=== PATIENT | male | born 1975 | race Caucasian/White ===

== ENCOUNTER 2018-01-21 12:49 | Inpatient (IN) | payer OTHER ==
[2018-01-21 13:35] VITALS: BMI 29.9
--- NOTE | 2018-01-21 14:42 | HP ---
CIWA Score - CIWA Score Nausea/Vomitin-Int. Nausea w/Dry Heave Muscle Tremors: None Anxiety: 2 Agitation: 0-Normal Activity Paroxysmal Sweats: 1-Minimal Palms Moist Orientation: 0-Oriented Tacttile Disturbances: 0-None Auditory Disturbances: 0-None Visual Disturbances: 1-Very Mild Sensitivity Headache: 0-None Present CIWA-Ar Total Score: 8 Admission ROS S - HPI Allergies/Adverse Reactions: Allergies Allergy/AdvReac Type Severity Reaction Status Date / Time No Known Allergies Allergy Verified 01/21/18 13:55 History of Present Illness: patient here requesting detox from etoh use , 4-5 pints/day vodka , reports progressively increase x 15 years , first age of use 6 , + w/d seizure most recently 2 days ago , + blackouts , + falls denies recent injuries . Reports starts drinking from early in the morning . prior detox x 8-9 , most recently 2 mo ago at this facility denies illicits tobacco : 4-5 cigs/day pmhx : htn, asthma ( hospitalzied, intobated - most recently 1 yr ago ) . right leg Achilles tendon tear , wearing CAM boot pshx : denies psych : depression , anxiety , bipolar d/o meds : depakote , gabapentin , celexa , abilify , ambien , naproxen Exam Limitations: Physical Impairment - Ebola screening Have you traveled outside of the country in the last 21 days: No Have you had contact with anyone from an Ebola affected area: No Have you been sick,other than usual withdrawal symptoms: No Do you have a fever: No - Review of Systems Constitutional: See HPI EENT: reports: See HPI Respiratory: reports: No Symptoms reported Cardiac: reports: No Symptoms Reported GI: reports: No Symptoms Reported : reports: No Symptoms Reported Musculoskeletal: reports: Other (right achilles tendon tear ,wears cam boot) Integumentary: reports: No Symptoms Reported Neuro: reports: No Symptoms reported, Other (r LE CAM) Psychiatric: reports: Orientated x3, other (see HPI) Patient History - Patient Medical History Hx Anemia: No Hx Asthma: Yes (PUMP) Hx Chronic Obstructive Pulmonary Disease (COPD): No Hx Cancer: No Hx Cardiac Disorders: Yes (cardiac arrest 6yrs ago) Hx Congestive Heart Failure: No Hx Hypertension: Yes (ON MEDS) Hx Hypercholesterolemia: No Hx Pacemaker: No HX Cerebrovascular Accident: No Hx Seizures: Yes (LAST SEIZURE 2 DAYS AGO) Hx Dementia: No Hx Diabetes: No Hx Gastrointestinal Disorders: No Hx Liver Disease: No Hx Genitourinary Disorders: No Hx Sexually Transmitted Disorders: Yes (gonorrhea) Hx Renal Disease (ESRD): No Hx Thyroid Disease: No Hx Human Immunodeficiency Virus (HIV): No (negative last tested a week ago ) Hx Hepatitis C: No Hx Depression: Yes Hx Suicide Attempt: No Hx Bipolar Disorder: Yes (abilifno, depkerente) Hx Schizophrenia: No - Patient Surgical History Past Surgical History: No Hx Neurologic Surgery: No Hx Cataract Extraction: No Hx Cardiac Surgery: No Hx Lung Surgery: No Hx Breast Surgery: No Hx Breast Biopsy: No Hx Abdominal Surgery: No Hx Appendectomy: No Hx Cholecystectomy: No Hx Genitourinary Surgery: No Hx Section: No Hx Orthopedic Surgery: Yes (lower back sx (fall)-lumber spine surgery 3yrs ago) Anesthesia Reaction: No - PPD History Documented Results: Positive w/o proof - Smoking Cessation Smoking history: Current some day smoker Have you smoked in the past 12 months: Yes Aproximately how many cigarettes per day: 5 Cigars Per Day: 0 Hx Chewing Tobacco Use: No Initiated information on smoking cessation: No - Substances Abused Alcohol Route: Oral Frequency: Daily Amount used: 4-5 PINTS OF VODKA Age of first use: 6 Date of Last Use: 01/20/18 Family Disease History - Family Disease History Family Disease History: [place]: Mother (BREAST CANCER), Other: Grandparent (uncle prostate ca) Admission Physical Exam S - Vital Signs Vital Signs: Vital Signs - 24 hr 01/21/18 13:33 Temperature 97.5 F L Pulse Rate 89 Respiratory 18 Rate Blood Pressure 129/70 - Physical General Appearance: Yes: No Apparent Distress, Nourished, Appropriately Dressed , Mild Distress HEENTM: Yes: EOMI, Hearing grossly Normal, Normocephalic, Normal Voice, SYLVAIN, Pharynx Normal, Other (upper dentures left eye chalazion outer lower lid- agreeable to f/up w/ PCP after d/c) Respiratory: Yes: Within Normal Limits, Chest Non-Tender, Lungs Clear, Normal Breath Sounds, No Respiratory Distress, No Accessory Muscle Use Neck: Yes: Within Normal Limits, No masses,lesions,Nodules, Trachea in good position Breast: Yes: Breast Exam Deferred Cardiology: Yes: Within Normal Limits, Regular Rhythm, Regular Rate Abdominal: Yes: Within Normal Limits, Normal Bowel Sounds, Non Tender, Flat, Soft Genitourinary: Yes: Within Normal Limits Back: Yes: Within Normal Limits, Normal Inspection Musculoskeletal: Yes: full range of Motion, Pelvis Stable, Joint Stiffness, Other (r LE CAM) Extremities: Yes: Normal Capillary Refill, Normal Inspection, Normal Range of Motion, Non-Tender, Tremors, Swelling, Inflammation, Other (right Achilles tear , + edema , reports has appt w/ ortho at [facility], planning surgery , had fall down subway stairs in October of this year, denies intoxication at the time of the fall.) Neurological: Yes: Fully Oriented, Alert, Motor Strength 5/5, Normal Mood/Affect , Normal Response, Depressed Affect Integumentary: Yes: Erythema, Other (right heel edema, slight erythema) Lymphatic: Yes: Within Normal Limits - Diagnostic (1) Alcohol dependence with withdrawal, uncomplicated Current Visit: No Status: Acute BHS Breath Alcohol Content Breath Alcohol Content: 0 Urine Drug Screen - Results Drug Screen Negative: Yes
[2018-01-21] MEDS ORDERED: LOPERAMIDE HCL 2 MG CAPSULE PO PRN (14:49)
[2018-01-21] MEDS ORDERED: MAGNESIUM HYDROX 2400MG/30ML ORAL SUSPENSION 30 ML CUP PO PRN (14:49)
[2018-01-21] MEDS ORDERED: MAG HYDROX/AL HYDROX/SIMETH 30 ML UNIT-DOSE CUP PO PRN (14:49)
[2018-01-21] MEDS ORDERED: MAGNESIUM CITRATE 300 ML BOTTLE PO PRN (14:49)
[2018-01-21] MEDS ORDERED: MENTHOL/PHENOL 1 EACH UD MM PRN (14:49)
[2018-01-21] MEDS ORDERED: chlordiazePOXIDE HCL 25 MG CAPSULE PO PRN (14:49)
[2018-01-21] MEDS ORDERED: guaiFENesin/D-METHORPHAN HB 10 ML UNIT-DOSE CUPS PO PRN (14:49)
[2018-01-21] MEDS ORDERED: IBUPROFEN 400 MG TABLET (FP) PO PRN (14:49)
[2018-01-21] MEDS ORDERED: ACETAMINOPHEN 325 MG TABLET (FP) PO PRN (14:49)
[2018-01-21] MEDS ORDERED: P-EPHED 60MG/TRIPROLIDI 2.5MG TABLET PO PRN (14:49)
[2018-01-21] MEDS ORDERED: ALBUTEROL SO4 8 GM HFA INHALER IH PRN (14:50)
[2018-01-21] MEDS ORDERED: ALBUTEROL SO4 0.083% IH SOL 2.5 MG/3 ML VIAL.NEB. NEB PRN (14:51)
[2018-01-21] MEDS: chlordiazePOXIDE 5 MG CAPSULE PO PRN (18:34)
[2018-01-21] MEDS ORDERED: MELATONIN 5 MG TABLETS PO PRN (22:00)
[2018-01-21] MEDS: THIAMINE HCL 100 MG TABLET (FP) PO SCH (22:25)
[2018-01-21] MEDS: chlordiazePOXIDE HCL 25 MG CAPSULE PO SCH (22:25)
[2018-01-22] MEDS: chlordiazePOXIDE HCL 25 MG CAPSULE PO SCH ×4 (06:30→22:38)
[2018-01-22 09:51] LABS: URINE APPEARANCE CLEAR; URINE BILIRUBIN NEGATIVE (<2.0 mg/dL); URINE COLOR YELLOW; URINE GLUCOSE (UA) NEGATIVE (NEGATIVE); URINE KETONE NEGATIVE (NEGATIVE); URINE LEUK ESTERASE NEGATIVE (NEGATIVE); URINE NITRITE NEGATIVE (NEGATIVE); URINE PROTEIN NEGATIVE (NEGATIVE); URINE UROBILINOGEN NEGATIVE mg/dL (0.2-1.0)
[2018-01-22 10:10] LABS: MEAN PLT VOLUME 9.4 fl (7.5-11.1)
[2018-01-22 10:12] LABS: HEMATOCRIT 41.2 % (35.4-49); MCH 32.2 pg (25.7-33.7); MEAN CELL VOLUME 94.9 fl (80-96); PLATELET COUNT 260 K/MM3 (134-434); RBC 4.34 M/mm3 (4.00-5.60); WHITE BLOOD COUNT 5.3 K/mm3 (4.0-10.0)
[2018-01-22] MEDS: PRENATAL VITAMINS W/ FOLIC ACID TABLET (FP) PO SCH (10:20)
[2018-01-22] MEDS: amLODIPine BESYLATE 10 MG TABLET (FP) PO SCH (10:20)
[2018-01-22] MEDS: NAPROXEN 500 MG TABLET (FP) PO SCH ×2 (10:20→22:38)
[2018-01-22 10:30] LABS: ALBUMIN 3.7 g/dl (3.4-5.0); ALK PHOS 58 U/L (45-117); ANION GAP 12 MMOL/L (8-16); BILIRUBIN,TOTAL 0.4 mg/dL (0.2-1); BLOOD UREA NITROGEN 14 mg/dL (7-18); CALCIUM 9.1 mg/dL (8.5-10.1); CHLORIDE 108 mmol/L (98-107); CO2 24 mmol/L (21-32); CREATININE 0.9 mg/dL (0.55-1.3); GLUCOSE,RANDOM 80 mg/dL (74-106); SGOT/AST 11 U/L (15-37); SGPT/ALT 29 U/L (13-61); SODIUM 144 mmol/L (136-145)
--- NOTE | 2018-01-22 11:03 | PN ---
[facility] CIWA - CIWA Score Nausea/Vomitin-No Nausea/No Vomiting Muscle Tremors: None Anxiety: 0-No Anxiety, at Ease Agitation: 0-Normal Activity Paroxysmal Sweats: No Perspiration Orientation: 0-Oriented Tacttile Disturbances: 2-Mild Itch/Numbness/Burn Auditory Disturbances: 0-None Visual Disturbances: 0-None Headache: 0-None Present CIWA-Ar Total Score: 2 BHS Progress Note (SOAP) Subjective: PATIENT C/O RIGHT HEEL PAIN AND BURNING SENSATION DUE TO RIGHT ACHILLES HEEL INJURY 3 MONTHS AGO. Objective: 01/22/18 11:01 Vital Signs Temperature 97.6 F 01/22/18 09:14 Pulse Rate 85 01/22/18 09:14 Respiratory Rate 18 01/22/18 09:14 Blood Pressure 116/73 01/22/18 09:14 O2 Sat by Pulse Oximetry (%) Laboratory Tests 01/21/18 01/22/18 01/22/18 07:40 06:00 06:00 WBC 5.3 RBC 4.34 Hgb 14.0 Hct 41.2 MCV 94.9 MCH 32.2 MCHC 34.0 RDW 14.0 Plt Count 260 MPV 9.4 D Sodium 144 Potassium 4.0 Chloride 108 H Carbon Dioxide 24 Anion Gap 12 BUN 14 Creatinine 0.9 Creat Clearance w eGFR > 60 Random Glucose 80 Calcium 9.1 Total Bilirubin 0.4 AST 11 L ALT 29 Alkaline Phosphatase 58 Total Protein 7.0 Albumin 3.7 Urine Color Yellow Urine Appearance Clear Urine pH 6.0 Ur Specific [place] 1.021 Urine Protein Negative Urine Glucose (UA) Negative Urine Ketones Negative Urine Blood Negative Urine Nitrite Negative Urine Bilirubin Negative Urine Urobilinogen Negative Ur Leukocyte Esterase Negative ALERT AND ORIENTED X 3 SKIN WARM AND DRY CAR S1S2 RESP CTA BL EXT + PEDAL EDEMA, RIGHT HEEL TENDERNESS. NO REDNESS NOTED. Assessment: 01/22/18 11:02 WITHDRAWAL SYNDROME Plan: CONTINUE DETOX ORDERED ENCOURAGED ORAL FLUIDS ADD NAPROSYN 500MG PO BID FOR PAIN CONTINUE TO MONITOR CLINICALLY
--- NOTE | 2018-01-22 11:14 | EKG ---
Test Reason : Blood Pressure : / mmHG Vent. Rate : 078 BPM Atrial Rate : 078 BPM P-R Int : 200 ms QRS Dur : 088 ms QT Int : 360 ms P-R-T Axes : 052 019 033 degrees QTc Int : 410 ms POOR DATA QUALITY, INTERPRETATION MAY BE ADVERSELY AFFECTED NORMAL SINUS RHYTHM NORMAL ECG WHEN COMPARED WITH ECG OF 08-DEC-2017 18:35, [place] INTERVAL HAS DECREASED Confirmed by VINNY MAST, SERGE ([id number]) on 01/22/2018 11:14:14 AM Referred By: Confirmed By:SERGE CASILLAS MD
[2018-01-22] MEDS ORDERED: FLU VACCINE QUAD 60 MCG/0.5 ML (MDV 18-19) IM ONE (12:00)
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
[2018-01-22] MEDS: chlordiazePOXIDE 5 MG CAPSULE PO PRN (18:24)
[2018-01-22] MEDS: THIAMINE HCL 100 MG TABLET (FP) PO SCH (22:38)
[2018-01-22] MEDS: ZOLPIDEM TARTRATE 5 MG TABLET PO PRN (22:38)
[2018-01-23] MEDS: chlordiazePOXIDE HCL 25 MG CAPSULE PO SCH ×3 (05:54→17:06)
[2018-01-23] MEDS: amLODIPine BESYLATE 10 MG TABLET (FP) PO SCH (10:27)
[2018-01-23] MEDS: PRENATAL VITAMINS W/ FOLIC ACID TABLET (FP) PO SCH (10:28)
[2018-01-23] MEDS: NAPROXEN 500 MG TABLET (FP) PO SCH ×2 (10:28→23:01)
[2018-01-23] MEDS ORDERED: FLU VACCINE QUAD 60 MCG/0.5 ML (MDV 18-19) IM ONE (12:00)
--- NOTE | 2018-01-23 12:40 | PN ---
S CIWA - CIWA Score Nausea/Vomitin Muscle Tremors: 2 Anxiety: 2 Agitation: 2 Paroxysmal Sweats: 2 Orientation: 0-Oriented Tacttile Disturbances: 1-Very Mild Itch/Numbness Auditory Disturbances: 0-None Visual Disturbances: 2-Mild Sensitivity Headache: 2-Mild CIWA-Ar Total Score: 15 S Progress Note (SOAP) Subjective: Tremors, sweats, interrupted sleep and back pain Objective: 01/23/18 12:39 Vital Signs 01/23/18 01/23/18 06:18 09:30 Temperature 97.5 F L 97.1 F L Pulse Rate 75 85 Respiratory 18 17 Rate Blood Pressure 112/72 118/78 Laboratory Last Values WBC 5.3 K/mm3 (4.0-10.0) 01/22/18 06:00 RBC 4.34 M/mm3 (4.00-5.60) 01/22/18 06:00 Hgb 14.0 GM/dL (11.7-16.9) 01/22/18 06:00 Hct 41.2 % (35.4-49) 01/22/18 06:00 MCV 94.9 fl (80-96) 01/22/18 06:00 MCH 32.2 pg (25.7-33.7) 01/22/18 06:00 MCHC 34.0 g/dl (32.0-35.9) 01/22/18 06:00 RDW 14.0 % (11.9-15.9) 01/22/18 06:00 Plt Count 260 K/MM3 (134-434) 01/22/18 06:00 MPV 9.4 fl (7.5-11.1) D 01/22/18 06:00 Sodium 144 mmol/L (136-145) 01/22/18 06:00 Potassium 4.0 mmol/L (3.5-5.1) 01/22/18 06:00 Chloride 108 mmol/L (98-107) H 01/22/18 06:00 Carbon Dioxide 24 mmol/L (21-32) 01/22/18 06:00 Anion Gap 12 MMOL/L (8-16) 01/22/18 06:00 BUN 14 mg/dL (7-18) 01/22/18 06:00 Creatinine 0.9 mg/dL (0.55-1.3) 01/22/18 06:00 Creat Clearance w eGFR > 60 (>60) 01/22/18 06:00 Random Glucose 80 mg/dL (74-106) 01/22/18 06:00 Calcium 9.1 mg/dL (8.5-10.1) 01/22/18 06:00 Total Bilirubin 0.4 mg/dL (0.2-1) 01/22/18 06:00 AST 11 U/L (15-37) L 01/22/18 06:00 ALT 29 U/L (13-61) 01/22/18 06:00 Alkaline Phosphatase 58 U/L (45-117) 01/22/18 06:00 Total Protein 7.0 g/dl (6.4-8.2) 01/22/18 06:00 Albumin 3.7 g/dl (3.4-5.0) 01/22/18 06:00 Urine Color Yellow 01/21/18 07:40 Urine Appearance Clear 01/21/18 07:40 Urine pH 6.0 (5.0-8.0) 01/21/18 07:40 Ur Specific [place] 1.021 (1.001-1.035) 01/21/18 07:40 Urine Protein Negative (NEGATIVE) 01/21/18 07:40 Urine Glucose (UA) Negative (NEGATIVE) 01/21/18 07:40 Urine Ketones Negative (NEGATIVE) 01/21/18 07:40 Urine Blood Negative (NEGATIVE) 01/21/18 07:40 Urine Nitrite Negative (NEGATIVE) 01/21/18 07:40 Urine Bilirubin Negative (<2.0 mg/dL) 01/21/18 07:40 Urine Urobilinogen Negative mg/dL (0.2-1.0) 01/21/18 07:40 Ur Leukocyte Esterase Negative (NEGATIVE) 01/21/18 07:40 RPR Titer Nonreactive (NONREACTIVE) 01/22/18 06:00 HIV 1&2 Antibody Screen Negative 01/21/18 15:00 HIV P24 Antigen Negative 01/21/18 15:00 Labs noted Assessment: 01/23/18 12:40 Withdrawal sx Plan: Continue detox
--- NOTE | 2018-01-23 21:07 | PN ---
[facility] Progress Note Note: Psychiatry Attending's on-call note : Called to address issue of medications. Mr Abdul is requesting his psychotropic medications. Wants to resume depakote,abilify and gabapentin. Met with the patient.Good and fairly reliable historian. He insists that he is compliant with all his medications. " I get anxious and catalan without them." Intervention : . restart depakote 500 mg po bid . valproic acid level requested. . abilify 15 mg po daily . gabapentin 300 mg po tid . Side effects/benefits discussed with the patient. Mr Abdul is in agreement with this plan of care. Patient states that he has refills from his provider at [facility]. No need for scripts at discharge from [facility].
[2018-01-23] MEDS: GABAPENTIN 300 MG CAPSULE (FP) PO SCH (23:01)
[2018-01-23] MEDS: DIVALPROEX SODIUM 500 MG TABLET E.C. PO SCH (23:01)
[2018-01-23] MEDS: ZOLPIDEM TARTRATE 5 MG TABLET PO PRN (23:02)
[2018-01-23] MEDS: THIAMINE HCL 100 MG TABLET (FP) PO SCH (23:02)
[2018-01-23] MEDS: chlordiazePOXIDE 5 MG CAPSULE PO SCH (23:02)
[2018-01-24] MEDS: chlordiazePOXIDE 5 MG CAPSULE PO SCH ×2 (06:19→10:34)
[2018-01-24] MEDS: GABAPENTIN 300 MG CAPSULE (FP) PO SCH (06:20)
[2018-01-24 06:25] VITALS: BP 114/74; PULSE 76; TEMP 97.2
[2018-01-24] MEDS ORDERED: ARIPiprazole 15 MG TABLET PO SCH (10:00)
[2018-01-24] MEDS ORDERED: CITALOPRAM HYDROBROMIDE 20 MG TABLET (FP) PO SCH (10:00)
[2018-01-24] MEDS: NAPROXEN 500 MG TABLET (FP) PO SCH (10:33)
[2018-01-24] MEDS: amLODIPine BESYLATE 10 MG TABLET (FP) PO SCH (10:33)
[2018-01-24] MEDS: DIVALPROEX SODIUM 500 MG TABLET E.C. PO SCH (10:33)
[2018-01-24] MEDS: PRENATAL VITAMINS W/ FOLIC ACID TABLET (FP) PO SCH (10:34)
--- NOTE | 2018-01-24 13:33 | DS ---
[facility] Detox Discharge Summary Admission Date: 01/21/18 Discharge Date: 01/24/18 - History Present History: Alcohol Dependence Additional Comments: Patient decided to leave AMA stating he has scheduled surgery tomorrow at 8: 30am at [facility] on [address] in the [place]. As per patient, he has achilles fx in right foot for 31/2 months and he has been homeless and has his belongings at his girlfriend and need to get them before she throws them out. Folding Machine Operator spoke with patient at length regarding importance of completing detox and that investigative writer could discharge him early tomorrow morning if his detox medication is adjusted. Folding Machine Operator mentioned adjusting his medication so that he can leave at 4pm today or as soon as 12pm but patient refused stating he has to leave right away because he has to go to [facility] to get his belongings from his girlfriend. Patient instructed to proceed to ER stat if withdrawal sxs and to follow up with his PCP within 1-2 weeks. Pertinent Past History: Asthma HTN GERD - Physical Exam Results Vital Signs: Vital Signs Temperature 97.2 F L 01/24/18 06:24 Pulse Rate 76 01/24/18 06:24 Respiratory Rate 18 01/24/18 06:24 Blood Pressure 114/74 01/24/18 06:24 O2 Sat by Pulse Oximetry (%) Pertinent Admission Physical Exam Findings: Withdrawal sx Laboratory Tests 01/21/18 01/21/18 01/22/18 07:40 15:00 06:00 WBC 5.3 RBC 4.34 Hgb 14.0 Hct 41.2 MCV 94.9 MCH 32.2 MCHC 34.0 RDW 14.0 Plt Count 260 MPV 9.4 D Sodium Potassium Chloride Carbon Dioxide Anion Gap BUN Creatinine Creat Clearance w eGFR Random Glucose Calcium Total Bilirubin AST ALT Alkaline Phosphatase Total Protein Albumin Urine Color Yellow Urine Appearance Clear Urine pH 6.0 Ur Specific [place] 1.021 Urine Protein Negative Urine Glucose (UA) Negative Urine Ketones Negative Urine Blood Negative Urine Nitrite Negative Urine Bilirubin Negative Urine Urobilinogen Negative Ur Leukocyte Esterase Negative Valproic Acid RPR Titer HIV 1&2 Antibody Screen Negative HIV P24 Antigen Negative 01/22/18 01/22/18 01/24/18 06:00 06:00 08:00 WBC RBC Hgb Hct MCV MCH MCHC RDW Plt Count MPV Sodium 144 Potassium 4.0 Chloride 108 H Carbon Dioxide 24 Anion Gap 12 BUN 14 Creatinine 0.9 Creat Clearance w eGFR > 60 Random Glucose 80 Calcium 9.1 Total Bilirubin 0.4 AST 11 L ALT 29 Alkaline Phosphatase 58 Total Protein 7.0 Albumin 3.7 Urine Color Urine Appearance Urine pH Ur Specific [place] Urine Protein Urine Glucose (UA) Urine Ketones Urine Blood Urine Nitrite Urine Bilirubin Urine Urobilinogen Ur Leukocyte Esterase Valproic Acid < 3.0 L RPR Titer Nonreactive HIV 1&2 Antibody Screen HIV P24 Antigen Labs reviewed - Medication Discharge Medications: Ambulatory Orders Albuterol Sulfate Inhaler - [Ventolin HFA Inhaler -] 2 inh IH Q4H PRN 03/23/12 Citalopram Hydrobromide [Celexa -] 10 mg PO DAILY #30 tablet 01/29/15 Divalproex [Depakote -] 500 mg PO BID 09/05/15 Gabapentin [Neurontin -] 300 mg PO TID 09/05/15 Amlodipine Besylate [Norvasc -] 10 mg PO DAILY 12/08/17 Zolpidem Tartrate [Ambien] 10 mg PO HS 12/08/17 Aripiprazole [Abilify -] 30 mg PO DAILY 01/21/18 Naproxen [Naprosyn -] 500 mg PO BID PRN 01/21/18 - Diagnosis (1) Alcohol dependence with withdrawal, uncomplicated Status: Acute (2) Insomnia Status: Acute (3) Nicotine dependence Status: Chronic Qualifiers: Nicotine product type: cigarettes Substance use status: in withdrawal Qualified Code(s): F17.213 - Nicotine dependence, cigarettes, with withdrawal (4) Substance induced mood disorder Status: Acute (5) Achilles tendon injury Status: Acute Qualifiers: (6) Asthma Status: Chronic (7) Bipolar disorder Status: Chronic Qualifiers: Active/Remission status: currently active Current bipolar episode type: depressed Current episode severity: mild Qualified Code(s): F31.31 - Bipolar disorder, current episode depressed, mild (8) Essential hypertension Status: Chronic (9) GERD (gastroesophageal reflux disease) Status: Chronic Qualifiers: - AMA Did Patient Leave Against Medical Advice: Yes (Proceed to ER stat if withdrawal sx, f/u with your PCP within 3 days)
[2018-01-24] MEDS ORDERED: chlordiazePOXIDE HCL 10 MG CAPSULE PO SCH (23:00)
== END 2018-01-24 10:10 | disposition home or self-care (01) | DRG 775 ==
LOC: YASAS 12:49 → Y3N 15:22
PROC: HZ2ZZZZ Detoxification Services for Substance Abuse Treatment (ICD-10-PCS; principal; 2018-01-21)
DX: F10.230 Alcohol dependence with withdrawal, uncomplicated (principal); F17.213 Nicotine dependence, cigarettes, with withdrawal; F31.31 Bipolar disorder, current episode depressed, mild; F41.8 Other specified anxiety disorders; F19.24 Other psychoactive substance dependence with psychoactive substance-induced mood disorder; G47.00 Insomnia, unspecified; I10 Essential (primary) hypertension; J45.909 Unspecified asthma, uncomplicated; K21.9 Gastro-esophageal reflux disease without esophagitis; G40.909 Epilepsy, unspecified, not intractable, without status epilepticus; Z86.19 Personal history of other infectious and parasitic diseases; Z86.74 Personal history of sudden cardiac arrest; S86.009A Unspecified injury of unspecified Achilles tendon, initial encounter; W19.XXXA Unspecified fall, initial encounter; Y93.89 Activity, other specified; Y92.815 Train as the place of occurrence of the external cause; Y99.8 Other external cause status; R26.89 Other abnormalities of gait and mobility; Z99.89 Dependence on other enabling machines and devices
CPT/HCPCS: 36415; 80053; 80164; 81003; 85027; 86593; 87389; 90688; 93005; 93010; G0008

== ENCOUNTER 2018-04-07 09:38 | Inpatient (IN) | payer OTHER ==
[2018-04-07 10:17] VITALS: BMI 29.2
--- NOTE | 2018-04-07 10:23 | HP ---
CIWA Score Nausea/Vomitin Muscle Tremors: 2 Anxiety: 2 Agitation: 2 Paroxysmal Sweats: 1-Minimal Palms Moist Orientation: 0-Oriented Tacttile Disturbances: 1-Very Mild Itch/Numbness Auditory Disturbances: 1-Very Mild Visual Disturbances: 0-None Headache: 2-Mild CIWA-Ar Total Score: 13 - Admission Criteria [facility]ASAS Guidelines: Admission for Medically Managed Detox: Requires at least one of the followin. CIWA greater than 12 2. Seizures within the past 24 hours 3. Delirium tremens within the past 24 hours 4. Hallucinations within the past 24 hours 5. Acute intervention needed for co occurring medical disorder 6. Acute intervention needed for co occurring psychiatric disorder 7. Severe withdrawal that cannot be handled at a lower level of care (continued vomiting, continued diarrhea, abnormal vital signs) requiring intravenous medication and/or fluids 8. Patient presents the following: CIWA greater than 12 Admission Criteria Met: Admission criteria met Admission ROS S - [facility] Chief Complaint: i am here for detox from alcohol and crystal meth Allergies/Adverse Reactions: Allergies Allergy/AdvReac Type Severity Reaction Status Date / Time No Known Allergies Allergy Verified 04/07/18 10:23 History of Present Illness: this 42 years old male with alcohol and crystal math,seekig detox,withdrawal symptom,last detox [facility] 01/21/18 to 01/24/18 seizure last 02/11 syncope history of hypertension and borderline dm, fx of calcaneous right 6 months ,ambulation with cane,treated at [facility] longest sobriety 3 years nicotine dependence bipolar disorder asthma - Ebola screening Have you traveled outside of the country in the last 21 days: No Have you had contact with anyone from an Ebola affected area: No Do you have a fever: No - Review of Systems Constitutional: No Symptoms Reported EENT: reports: Nose Congestion Respiratory: reports: Other (asthma) GI: reports: Nausea, Poor Appetite, Abdominal cramping : reports: No Symptoms Reported Patient History - Patient Medical History Hx Anemia: No Hx Asthma: Yes (PUMP) Hx Chronic Obstructive Pulmonary Disease (COPD): No Hx Cancer: No Hx Cardiac Disorders: Yes (cardiac arrest 6yrs ago) Hx Congestive Heart Failure: No Hx Hypertension: Yes (ON MED) Hx Hypercholesterolemia: No Hx Pacemaker: No HX Cerebrovascular Accident: No Hx Seizures: Yes (LAST SEIZURE last 02/11) Hx Dementia: No Hx Diabetes: No Hx Gastrointestinal Disorders: No Hx Liver Disease: No Hx Genitourinary Disorders: No Hx Sexually Transmitted Disorders: Yes (gonorrhea) Hx Renal Disease (ESRD): No Hx Thyroid Disease: No Hx Human Immunodeficiency Virus (HIV): No (negative last 01/12 negative) Hx Hepatitis C: No Hx Depression: Yes Hx Suicide Attempt: No Hx Bipolar Disorder: Yes (abilify, depakote) Hx Schizophrenia: No Other Medical History: no sucidal,no homicidal,fx of calcaneous 6 months ago ambulation with cane - Patient Surgical History Past Surgical History: No Hx Neurologic Surgery: No Hx Cataract Extraction: No Hx Cardiac Surgery: No Hx Lung Surgery: No Hx Breast Surgery: No Hx Breast Biopsy: No Hx Abdominal Surgery: No Hx Appendectomy: No Hx Cholecystectomy: No Hx Genitourinary Surgery: No Hx Section: No Hx Orthopedic Surgery: Yes (lower back sx (fall)-lumber spine surgery 3yrs ago) Anesthesia Reaction: No - PPD History Previous Implant?: Yes Documented Results: Positive w/proof Implanted On Prior [facility] Admission?: No PPD to be Administered?: No - Smoking Cessation Smoking history: Current some day smoker Have you smoked in the past 12 months: Yes Aproximately how many cigarettes per day: 5 Cigars Per Day: 0 Hx Chewing Tobacco Use: No Initiated information on smoking cessation: Yes 'Breaking Loose' booklet given: 04/07/18 - Substance & Tx. History Hx Alcohol Use: Yes Hx Substance Use: Yes Substance Use Type: Alcohol Hx Substance Use Treatment: Yes ([facility] 01/21/18 to 01/24/18) - Substances Abused Alcohol Route: Oral Frequency: Daily Amount used: 4 pints vodka Age of first use: 6 Date of Last Use: 04/06/18 Crystal meth Route: Smoking Frequency: Daily Amount used: 1 gram Age of first use: 40 Date of Last Use: 04/07/18 Family Disease History - Family Disease History Family Disease History: CA: Mother (BREAST CANCER), Other: Grandparent (uncle prostate ca) Admission Physical Exam BHS - Vital Signs Vital Signs: Vital Signs Temperature 98.4 F 04/07/18 10:09 Pulse Rate 87 04/07/18 10:09 Respiratory Rate 20 04/07/18 10:09 Blood Pressure 125/75 04/07/18 10:09 O2 Sat by Pulse Oximetry (%) - Physical General Appearance: Yes: Moderate Distress, Tremorous, Irritable, Sweating, Anxious HEENTM: Yes: Normal ENT Inspection, SYLVAIN, Pharynx Normal Respiratory: Yes: Lungs Clear, Normal Breath Sounds, No Respiratory Distress Neck: Yes: Within Normal Limits, Supple, Trachea in good position Breast: Yes: Within Normal Limits Cardiology: Yes: Within Normal Limits, Regular Rhythm, Regular Rate, S1, S2 Abdominal: Yes: Within Normal Limits, Normal Bowel Sounds, Non Tender, Flat, Soft Genitourinary: Yes: Within Normal Limits Back: Yes: Muscle Spasm, Surgical Scar (history of back surgery) Musculoskeletal: Yes: Back pain, Muscle Pain Extremities: Yes: Tremors Neurological: Yes: greige mender II-XII NML intact, Fully Oriented, Alert, Motor Strength 5/5, Confused Integumentary: Yes: Dry Lymphatic: Yes: Within Normal Limits - Diagnostic (1) Alcohol dependence with withdrawal, uncomplicated Current Visit: Yes Status: Acute (2) Asthma Current Visit: No Status: Chronic (3) Essential hypertension Current Visit: No Status: Chronic (4) Seizure Current Visit: No Status: Inactive (5) DM2 (diabetes mellitus, type 2) Current Visit: Yes Status: Acute (6) Fracture closed, calcaneus Current Visit: Yes Status: Acute (7) Use of cane as ambulatory aid Current Visit: Yes Status: Acute (8) Bipolar disorder Current Visit: No Status: Chronic Qualifiers: Active/Remission status: currently active Current bipolar episode type: depressed Current episode severity: mild Qualified Code(s): F31.31 - Bipolar disorder, current episode depressed, mild Comment: According to records + self-report. Non adherent to OPD care for months. (9) Nicotine dependence Current Visit: Yes Status: Chronic Comment: As per self-report. No toxicology. Cleared for Admission S - Detox or Rehab [facility] Level of Care: Medically Managed Detox Regimen/Protocol: Librium S Breath Alcohol Content Breath Alcohol Content: 0
[2018-04-07] MEDS ORDERED: MENTHOL/PHENOL 1 EACH UD MM PRN (10:35)
[2018-04-07] MEDS ORDERED: ACETAMINOPHEN 325 MG TABLET (FP) PO PRN (10:35)
[2018-04-07] MEDS ORDERED: P-EPHED 60MG/TRIPROLIDI 2.5MG TABLET PO PRN (10:35)
[2018-04-07] MEDS ORDERED: LOPERAMIDE HCL 2 MG CAPSULE PO PRN (10:35)
[2018-04-07] MEDS ORDERED: MAG HYDROX/AL HYDROX/SIMETH 30 ML UNIT-DOSE CUP PO PRN (10:35)
[2018-04-07] MEDS ORDERED: chlordiazePOXIDE HCL 25 MG CAPSULE PO PRN (10:35)
[2018-04-07] MEDS ORDERED: MAGNESIUM HYDROX 2400MG/30ML ORAL SUSPENSION 30 ML CUP PO PRN (10:35)
[2018-04-07] MEDS ORDERED: hydrOXYzine PAMOATE 50 MG CAPSULE (FP) PO PRN (10:35)
[2018-04-07] MEDS ORDERED: MAGNESIUM CITRATE 300 ML BOTTLE PO PRN (10:35)
[2018-04-07] MEDS ORDERED: IBUPROFEN 400 MG TABLET (FP) PO PRN (10:35)
[2018-04-07] MEDS ORDERED: guaiFENesin/D-METHORPHAN HB 10 ML UNIT-DOSE CUPS PO PRN (10:35)
[2018-04-07] MEDS ORDERED: ALBUTEROL SO4 8 GM HFA INHALER IH PRN (10:39)
[2018-04-07] MEDS: amLODIPine BESYLATE 10 MG TABLET (FP) PO SCH (11:31)
[2018-04-07] MEDS: NAPROXEN 500 MG TABLET (FP) PO PRN (11:32)
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
[2018-04-07] MEDS: chlordiazePOXIDE HCL 25 MG CAPSULE PO SCH ×2 (17:21→22:24)
[2018-04-07] MEDS: THIAMINE HCL 100 MG TABLET (FP) PO SCH (22:24)
[2018-04-07 23:25] LABS: URINE APPEARANCE CLEAR; URINE BILIRUBIN NEGATIVE (<2.0 mg/dL); URINE COLOR STRAW; URINE GLUCOSE (UA) NEGATIVE (NEGATIVE); URINE KETONE NEGATIVE (NEGATIVE); URINE LEUK ESTERASE NEGATIVE (NEGATIVE); URINE NITRITE NEGATIVE (NEGATIVE); URINE PROTEIN NEGATIVE (NEGATIVE); URINE UROBILINOGEN NEGATIVE mg/dL (0.2-1.0)
[2018-04-08] MEDS: chlordiazePOXIDE HCL 25 MG CAPSULE PO SCH ×4 (05:38→22:16)
[2018-04-08] MEDS: amLODIPine BESYLATE 10 MG TABLET (FP) PO SCH (10:43)
[2018-04-08] MEDS: PRENATAL VITAMINS W/ FOLIC ACID TABLET (FP) PO SCH (10:43)
[2018-04-08 10:46] LABS: HEMATOCRIT 38.3 % (35.4-49); HEMOGLOBIN 12.6 GM/dL (11.7-16.9); MCH 32.6 pg (25.7-33.7); MEAN PLT VOLUME 9.4 fl (7.5-11.1); PLATELET COUNT 261 K/MM3 (134-434); RBC 3.87 M/mm3 (4.00-5.60); RDW 13.7 % (11.9-15.9); WHITE BLOOD COUNT 5.5 K/mm3 (4.0-10.0)
[2018-04-08 11:29] LABS: ALBUMIN 3.9 g/dl (3.4-5.0); ALK PHOS 87 U/L (45-117); ANION GAP 9 MMOL/L (8-16); BILIRUBIN,TOTAL 0.4 mg/dL (0.2-1); BLOOD UREA NITROGEN 14 mg/dL (7-18); CALCIUM 8.7 mg/dL (8.5-10.1); CHLORIDE 106 mmol/L (98-107); CO2 24 mmol/L (21-32); CREATININE 0.8 mg/dL (0.55-1.3); GLUCOSE,RANDOM 124 mg/dL (74-106); POTASSIUM 3.8 mmol/L (3.5-5.1); SGOT/AST 17 U/L (15-37); SGPT/ALT 34 U/L (13-61); SODIUM 140 mmol/L (136-145)
--- NOTE | 2018-04-08 16:33 | PN ---
[facility] CIWA - CIWA Score Nausea/Vomitin-No Nausea/No Vomiting Muscle Tremors: 3 Anxiety: 3 Agitation: 3 Paroxysmal Sweats: 1-Minimal Palms Moist Orientation: 0-Oriented Tacttile Disturbances: 0-None Auditory Disturbances: 0-None Visual Disturbances: 0-None Headache: 2-Mild CIWA-Ar Total Score: 12 S Progress Note (SOAP) Subjective: low energy sweat tremor restlessness Objective: 04/08/18 16:32 Vital Signs Temperature 97.4 F L 04/08/18 13:32 Pulse Rate 104 H 04/08/18 13:32 Respiratory Rate 18 04/08/18 13:32 Blood Pressure 118/81 04/08/18 13:32 O2 Sat by Pulse Oximetry (%) Laboratory Last Values WBC 5.5 K/mm3 (4.0-10.0) 04/08/18 06:00 RBC 3.87 M/mm3 (4.00-5.60) L 04/08/18 06:00 Hgb 12.6 GM/dL (11.7-16.9) 04/08/18 06:00 Hct 38.3 % (35.4-49) 04/08/18 06:00 MCV 99.0 fl (80-96) H 04/08/18 06:00 MCH 32.6 pg (25.7-33.7) 04/08/18 06:00 MCHC 33.0 g/dl (32.0-35.9) 04/08/18 06:00 RDW 13.7 % (11.9-15.9) 04/08/18 06:00 Plt Count 261 K/MM3 (134-434) 04/08/18 06:00 MPV 9.4 fl (7.5-11.1) 04/08/18 06:00 Sodium 140 mmol/L (136-145) 04/08/18 06:00 Potassium 3.8 mmol/L (3.5-5.1) 04/08/18 06:00 Chloride 106 mmol/L (98-107) 04/08/18 06:00 Carbon Dioxide 24 mmol/L (21-32) 04/08/18 06:00 Anion Gap 9 MMOL/L (8-16) 04/08/18 06:00 BUN 14 mg/dL (7-18) 04/08/18 06:00 Creatinine 0.8 mg/dL (0.55-1.3) 04/08/18 06:00 Creat Clearance w eGFR > 60 (>60) 04/08/18 06:00 POC Glucometer 98 UNITS (80-120) 04/08/18 05:37 Random Glucose 124 mg/dL (74-106) H 04/08/18 06:00 Calcium 8.7 mg/dL (8.5-10.1) 04/08/18 06:00 Total Bilirubin 0.4 mg/dL (0.2-1) 04/08/18 06:00 AST 17 U/L (15-37) 04/08/18 06:00 ALT 34 U/L (13-61) 04/08/18 06:00 Alkaline Phosphatase 87 U/L (45-117) 04/08/18 06:00 Total Protein 7.0 g/dl (6.4-8.2) 04/08/18 06:00 Albumin 3.9 g/dl (3.4-5.0) 04/08/18 06:00 Urine Color Straw 04/07/18 19:59 Urine Appearance Clear 04/07/18 19:59 Urine pH 6.0 (5.0-8.0) 04/07/18 19:59 Ur Specific [place] 1.011 (1.010-1.035) 04/07/18 19:59 Urine Protein Negative (NEGATIVE) 04/07/18 19:59 Urine Glucose (UA) Negative (NEGATIVE) 04/07/18 19:59 Urine Ketones Negative (NEGATIVE) 04/07/18 19:59 Urine Blood Negative (NEGATIVE) 04/07/18 19:59 Urine Nitrite Negative (NEGATIVE) 04/07/18 19:59 Urine Bilirubin Negative (<2.0 mg/dL) 04/07/18 19:59 Urine Urobilinogen Negative mg/dL (0.2-1.0) 04/07/18 19:59 Ur Leukocyte Esterase Negative (NEGATIVE) 04/07/18 19:59 RPR Titer Nonreactive (NONREACTIVE) 04/08/18 06:00 HIV 1&2 Antibody Screen Negative 04/07/18 11:00 HIV P24 Antigen Negative 04/07/18 11:00 lab noted Assessment: 04/08/18 16:33 withdrawal sx Plan: continue detox
[2018-04-08] MEDS: THIAMINE HCL 100 MG TABLET (FP) PO SCH (22:15)
[2018-04-08] MEDS: MELATONIN 5 MG TABLETS PO PRN (22:16)
[2018-04-09] MEDS: chlordiazePOXIDE HCL 25 MG CAPSULE PO SCH ×2 (05:38→10:25)
[2018-04-09] MEDS: amLODIPine BESYLATE 10 MG TABLET (FP) PO SCH (10:25)
[2018-04-09] MEDS: PRENATAL VITAMINS W/ FOLIC ACID TABLET (FP) PO SCH (10:25)
--- NOTE | 2018-04-09 14:51 | PN ---
S CIWA - CIWA Score Nausea/Vomitin-No Nausea/No Vomiting Muscle Tremors: 3 Anxiety: 2 Agitation: 1-Slight > Activity Paroxysmal Sweats: 2 Orientation: 0-Oriented Tacttile Disturbances: 0-None Auditory Disturbances: 0-None Visual Disturbances: 0-None Headache: 0-None Present CIWA-Ar Total Score: 8 BHS Progress Note (SOAP) Subjective: PATIENT C/O RIGHT LEG DISCOMFORT, SWEATING, SHAKES AND ANXIETY. Objective: 04/09/18 14:50 Vital Signs Temperature 96.6 F L 04/09/18 13:07 Pulse Rate 106 H 04/09/18 13:07 Respiratory Rate 18 04/09/18 13:07 Blood Pressure 137/69 04/09/18 13:07 O2 Sat by Pulse Oximetry (%) Laboratory Tests 04/07/18 04/07/18 04/07/18 10:31 11:00 19:59 WBC RBC Hgb Hct MCV MCH MCHC RDW Plt Count MPV Sodium Potassium Chloride Carbon Dioxide Anion Gap BUN Creatinine Creat Clearance w eGFR POC Glucometer 124 Random Glucose Calcium Total Bilirubin AST ALT Alkaline Phosphatase Total Protein Albumin Urine Color Straw Urine Appearance Clear Urine pH 6.0 Ur Specific [place] 1.011 Urine Protein Negative Urine Glucose (UA) Negative Urine Ketones Negative Urine Blood Negative Urine Nitrite Negative Urine Bilirubin Negative Urine Urobilinogen Negative Ur Leukocyte Esterase Negative RPR Titer HIV 1&2 Antibody Screen Negative HIV P24 Antigen Negative 04/08/18 04/08/18 04/08/18 05:37 06:00 06:00 WBC 5.5 RBC 3.87 L Hgb 12.6 Hct 38.3 MCV 99.0 H MCH 32.6 MCHC 33.0 RDW 13.7 Plt Count 261 MPV 9.4 Sodium 140 Potassium 3.8 Chloride 106 Carbon Dioxide 24 Anion Gap 9 BUN 14 Creatinine 0.8 Creat Clearance w eGFR > 60 POC Glucometer 98 Random Glucose 124 H Calcium 8.7 Total Bilirubin 0.4 AST 17 ALT 34 Alkaline Phosphatase 87 Total Protein 7.0 Albumin 3.9 Urine Color Urine Appearance Urine pH Ur Specific [place] Urine Protein Urine Glucose (UA) Urine Ketones Urine Blood Urine Nitrite Urine Bilirubin Urine Urobilinogen Ur Leukocyte Esterase RPR Titer HIV 1&2 Antibody Screen HIV P24 Antigen 04/08/18 04/08/18 04/09/18 06:00 16:34 05:38 WBC RBC Hgb Hct MCV MCH MCHC RDW Plt Count MPV Sodium Potassium Chloride Carbon Dioxide Anion Gap BUN Creatinine Creat Clearance w eGFR POC Glucometer 125 109 Random Glucose Calcium Total Bilirubin AST ALT Alkaline Phosphatase Total Protein Albumin Urine Color Urine Appearance Urine pH Ur Specific [place] Urine Protein Urine Glucose (UA) Urine Ketones Urine Blood Urine Nitrite Urine Bilirubin Urine Urobilinogen Ur Leukocyte Esterase RPR Titer Nonreactive HIV 1&2 Antibody Screen HIV P24 Antigen PE: SKIN WARM AND MOIST ALERT AND ORIENTED X 3 CAR S1S2 RESP CTA BL EXT MILD TREMORS, NO EDEMA, FULL ROM Assessment: 04/09/18 14:50 WITHDRAWAL SX RIGHT LEG DISCOMFORT Plan: CONTINUE DETOX ENCOURAGE ORAL FLUIDS CONTINUE TO MONITOR CLINICALLY
[2018-04-09] MEDS: chlordiazePOXIDE 5 MG CAPSULE PO SCH ×2 (17:30→22:02)
[2018-04-09] MEDS: NAPROXEN 500 MG TABLET (FP) PO PRN (17:33)
[2018-04-09] MEDS: THIAMINE HCL 100 MG TABLET (FP) PO SCH (22:02)
[2018-04-09] MEDS: MELATONIN 5 MG TABLETS PO PRN (22:04)
[2018-04-10] MEDS: chlordiazePOXIDE 5 MG CAPSULE PO SCH (06:03)
[2018-04-10] MEDS: amLODIPine BESYLATE 10 MG TABLET (FP) PO SCH (10:18)
[2018-04-10] MEDS: PRENATAL VITAMINS W/ FOLIC ACID TABLET (FP) PO SCH (10:18)
[2018-04-10 10:40] VITALS: BP 119/75; PULSE 87; TEMP 96.6
--- NOTE | 2018-04-10 12:14 | DS ---
[facility] Detox Discharge Summary Admission Date: 04/07/18 Discharge Date: 04/10/18 - History Present History: Alcohol Dependence, Cannabis Dependence, Cocaine Dependence Pertinent Past History: Asthma, hypertension, depression, GERD, seizure disorder - Physical Exam Results Vital Signs: Vital Signs Temperature 96.6 F L 04/10/18 10:39 Pulse Rate 87 04/10/18 10:39 Respiratory Rate 18 04/10/18 10:39 Blood Pressure 119/75 04/10/18 10:39 O2 Sat by Pulse Oximetry (%) Pertinent Admission Physical Exam Findings: Withdrawal sx Laboratory Last Values WBC 5.5 K/mm3 (4.0-10.0) 04/08/18 06:00 RBC 3.87 M/mm3 (4.00-5.60) L 04/08/18 06:00 Hgb 12.6 GM/dL (11.7-16.9) 04/08/18 06:00 Hct 38.3 % (35.4-49) 04/08/18 06:00 MCV 99.0 fl (80-96) H 04/08/18 06:00 MCH 32.6 pg (25.7-33.7) 04/08/18 06:00 MCHC 33.0 g/dl (32.0-35.9) 04/08/18 06:00 RDW 13.7 % (11.9-15.9) 04/08/18 06:00 Plt Count 261 K/MM3 (134-434) 04/08/18 06:00 MPV 9.4 fl (7.5-11.1) 04/08/18 06:00 Sodium 140 mmol/L (136-145) 04/08/18 06:00 Potassium 3.8 mmol/L (3.5-5.1) 04/08/18 06:00 Chloride 106 mmol/L (98-107) 04/08/18 06:00 Carbon Dioxide 24 mmol/L (21-32) 04/08/18 06:00 Anion Gap 9 MMOL/L (8-16) 04/08/18 06:00 BUN 14 mg/dL (7-18) 04/08/18 06:00 Creatinine 0.8 mg/dL (0.55-1.3) 04/08/18 06:00 Creat Clearance w eGFR > 60 (>60) 04/08/18 06:00 POC Glucometer 109 UNITS (80-120) 04/09/18 05:38 Random Glucose 124 mg/dL (74-106) H 04/08/18 06:00 Calcium 8.7 mg/dL (8.5-10.1) 04/08/18 06:00 Total Bilirubin 0.4 mg/dL (0.2-1) 04/08/18 06:00 AST 17 U/L (15-37) 04/08/18 06:00 ALT 34 U/L (13-61) 04/08/18 06:00 Alkaline Phosphatase 87 U/L (45-117) 04/08/18 06:00 Total Protein 7.0 g/dl (6.4-8.2) 04/08/18 06:00 Albumin 3.9 g/dl (3.4-5.0) 04/08/18 06:00 Urine Color Straw 04/07/18 19:59 Urine Appearance Clear 04/07/18 19:59 Urine pH 6.0 (5.0-8.0) 04/07/18 19:59 Ur Specific [place] 1.011 (1.010-1.035) 04/07/18 19:59 Urine Protein Negative (NEGATIVE) 04/07/18 19:59 Urine Glucose (UA) Negative (NEGATIVE) 04/07/18 19:59 Urine Ketones Negative (NEGATIVE) 04/07/18 19:59 Urine Blood Negative (NEGATIVE) 04/07/18 19:59 Urine Nitrite Negative (NEGATIVE) 04/07/18 19:59 Urine Bilirubin Negative (<2.0 mg/dL) 04/07/18 19:59 Urine Urobilinogen Negative mg/dL (0.2-1.0) 04/07/18 19:59 Ur Leukocyte Esterase Negative (NEGATIVE) 04/07/18 19:59 RPR Titer Nonreactive (NONREACTIVE) 04/08/18 06:00 HIV 1&2 Antibody Screen Negative 04/07/18 11:00 HIV P24 Antigen Negative 04/07/18 11:00 Labs noted - Treatment Hospital Course: Detox Protocol Followed, Detoxed Safely, Responded well, Discharged Condition Good - Medication Discharge Medications: Ambulatory Orders Albuterol Sulfate Inhaler - [Ventolin HFA Inhaler -] 2 inh IH Q4H PRN 03/23/12 Citalopram Hydrobromide [Celexa -] 10 mg PO DAILY #30 tablet 01/29/15 Divalproex [Depakote -] 500 mg PO BID 09/05/15 Gabapentin [Neurontin -] 300 mg PO TID 09/05/15 Amlodipine Besylate [Norvasc -] 10 mg PO DAILY 12/08/17 Zolpidem Tartrate [Ambien] 10 mg PO HS 12/08/17 Aripiprazole [Abilify -] 30 mg PO DAILY 01/21/18 Naproxen [Naprosyn -] 500 mg PO BID PRN 01/21/18 - Diagnosis (1) Alcohol dependence with withdrawal, uncomplicated Current Visit: Yes Status: Acute (2) Cocaine dependence Current Visit: Yes Status: Acute (3) Drug-induced mood disorder Current Visit: No Status: Chronic (4) Essential hypertension Current Visit: No Status: Chronic (5) GERD (gastroesophageal reflux disease) Current Visit: No Status: Chronic Qualifiers: (6) Seizure disorder Current Visit: No Status: Suspected - AMA Did Patient Leave Against Medical Advice: No (Pt. requested early d/c today instead of tomorrow)
[2018-04-10] MEDS ORDERED: chlordiazePOXIDE HCL 10 MG CAPSULE PO SCH (17:00)
== END 2018-04-10 12:25 | disposition home or self-care (01) | DRG 774 ==
LOC: YASAS 09:38 → Y3N 10:37
PROC: HZ2ZZZZ Detoxification Services for Substance Abuse Treatment (ICD-10-PCS; principal; 2018-04-07)
DX: F10.230 Alcohol dependence with withdrawal, uncomplicated (principal); F14.20 Cocaine dependence, uncomplicated; F15.10 Other stimulant abuse, uncomplicated; F17.210 Nicotine dependence, cigarettes, uncomplicated; F19.24 Other psychoactive substance dependence with psychoactive substance-induced mood disorder; F31.31 Bipolar disorder, current episode depressed, mild; I10 Essential (primary) hypertension; K21.9 Gastro-esophageal reflux disease without esophagitis; J45.909 Unspecified asthma, uncomplicated; E11.9 Type 2 diabetes mellitus without complications; G40.909 Epilepsy, unspecified, not intractable, without status epilepticus; R26.2 Difficulty in walking, not elsewhere classified; Z99.89 Dependence on other enabling machines and devices; Z86.74 Personal history of sudden cardiac arrest; Z91.14 Patient's other noncompliance with medication regimen; Z87.438 Personal history of other diseases of male genital organs
CPT/HCPCS: 36415; 80053; 81003; 82962; 85027; 86593; 87389

== ENCOUNTER 2018-05-20 15:54 | Inpatient (IN) | payer OTHER ==
--- NOTE | 2018-05-20 17:27 | HP ---
CIWA Score Nausea/Vomitin Muscle Tremors: 2 Anxiety: 4-Mod. Anxious/Guarded Agitation: 1-Slight > Activity Paroxysmal Sweats: No Perspiration Orientation: 0-Oriented Tacttile Disturbances: 0-None Auditory Disturbances: 0-None Visual Disturbances: 2-Mild Sensitivity Headache: 3-Moderate CIWA-Ar Total Score: 15 - Admission Criteria OASAS Guidelines: Admission for Medically Managed Detox: Requires at least one of the followin. CIWA greater than 12 2. Seizures within the past 24 hours 3. Delirium tremens within the past 24 hours 4. Hallucinations within the past 24 hours 5. Acute intervention needed for co occurring medical disorder 6. Acute intervention needed for co occurring psychiatric disorder 7. Severe withdrawal that cannot be handled at a lower level of care (continued vomiting, continued diarrhea, abnormal vital signs) requiring intravenous medication and/or fluids 8. Patient presents the following: CIWA greater than 12, Seizures, delirium tremens or hallucinations in the past 12 hours Admission Criteria Met: Admission criteria met Admission ROS BHS - HPI Allergies/Adverse Reactions: Allergies Allergy/AdvReac Type Severity Reaction Status Date / Time No Known Allergies Allergy Verified 05/20/18 18:02 History of Present Illness: patient here requesting detox from xanax use , reports 5-6 /day , latest use yesterday , reports anxiety if not taking , has been using x several years , + withdrawal seizures , blackouts , tremors , reports 4-5 pints/day latest use yesterday . tobacco : 4-5 cigs/day pmhx : htn, asthma ( hospitalized, intubated - most recently 1 yr ago , right leg Achilles tendon tear , no longer using boot x 6 weeks , currently using cane for ambulation , planning to have surgery , prophylaxis PREP for unprotected sexual intercourse w/ HIV + individual , brought in bottle of Truvada filled . pshx : denies psych : depression , anxiety , bipolar d/o meds : depakote , gabapentin , celexa , abilify , ambien , naproxen Exam Limitations: No Limitations - Ebola screening Have you traveled outside of the country in the last 21 days: No Have you had contact with anyone from an Ebola affected area: No Do you have a fever: No - Review of Systems Constitutional: See HPI EENT: reports: See HPI, Nose Congestion, Other (edentulous) Respiratory: reports: Shortness of Breath Cardiac: reports: No Symptoms Reported GI: reports: No Symptoms Reported : reports: No Symptoms Reported Musculoskeletal: reports: See HPI, Joint Pain (R ankle), Muscle Pain Integumentary: reports: No Symptoms Reported Neuro: reports: Headache Endocrine: reports: No Symptoms Reported Psychiatric: reports: Orientated x3, Anxious Patient History - Patient Medical History Hx Anemia: No Hx Asthma: Yes (PUMP) Hx Chronic Obstructive Pulmonary Disease (COPD): No Hx Cancer: No Hx Cardiac Disorders: Yes (cardiac arrest 6yrs ago) Hx Congestive Heart Failure: No Hx Hypertension: Yes (ON MED) Hx Hypercholesterolemia: No Hx Pacemaker: No HX Cerebrovascular Accident: No Hx Seizures: Yes (LAST SEIZURE last 02/11) Hx Dementia: No Hx Diabetes: No Hx Gastrointestinal Disorders: No Hx Liver Disease: No Hx Genitourinary Disorders: No Hx Sexually Transmitted Disorders: Yes (gonorrhea) Hx Renal Disease (ESRD): No Hx Thyroid Disease: No Hx Human Immunodeficiency Virus (HIV): No (negative last 01/12 negative) Hx Hepatitis C: No Hx Depression: Yes Hx Suicide Attempt: No Hx Bipolar Disorder: Yes (johnny ulloa) Hx Schizophrenia: No - Patient Surgical History Past Surgical History: No Hx Neurologic Surgery: No Hx Cataract Extraction: No Hx Cardiac Surgery: No Hx Lung Surgery: No Hx Breast Surgery: No Hx Breast Biopsy: No Hx Abdominal Surgery: No Hx Appendectomy: No Hx Cholecystectomy: No Hx Genitourinary Surgery: No Hx Section: No Hx Orthopedic Surgery: Yes (lower back sx (fall)-lumber spine surgery 3yrs ago) Anesthesia Reaction: No - Smoking Cessation Smoking history: Current some day smoker Have you smoked in the past 12 months: Yes Aproximately how many cigarettes per day: 5 Cigars Per Day: 0 Hx Chewing Tobacco Use: No Initiated information on smoking cessation: No - Substances Abused Alcohol Route: Oral Frequency: Daily Amount used: liquor- 5 pints Age of first use: 6 Date of Last Use: 05/19/18 Alprazolam (Xanax) Route: Oral Frequency: Daily Amount used: 10mg Age of first use: 39 Date of Last Use: 05/19/18 Family Disease History - Family Disease History Family Disease History: CA: Mother (BREAST CANCER), Other: Grandparent (uncle prostate ca) Admission Physical Exam [facility] - Physical General Appearance: Yes: Mild Distress HEENTM: Yes: Hearing grossly Normal, Normocephalic, Normal Voice, Nasal Congestion, Other (edentulous) Respiratory: Yes: Chest Non-Tender, Lungs Clear, Normal Breath Sounds Neck: Yes: No masses,lesions,Nodules, Trachea in good position Cardiology: Yes: Regular Rhythm, Regular Rate, S1, S2 Abdominal: Yes: Non Tender, Soft Genitourinary: Yes: Within Normal Limits Back: Yes: Normal Inspection Musculoskeletal: Yes: Other (ambulating using cane) Extremities: Yes: Tremors Neurological: Yes: Motor Strength 5/5, Normal Mood/Affect Integumentary: Yes: Normal Color - Diagnostic (1) Sedative hypnotic or anxiolytic dependence Current Visit: Yes Status: Acute (2) Alcohol dependence with withdrawal, uncomplicated Current Visit: No Status: Acute (3) Nicotine dependence Current Visit: No Status: Chronic Qualifiers: Nicotine product type: cigarettes Comment: As per self-report. No toxicology. S Breath Alcohol Content Breath Alcohol Content: 0
[2018-05-20] MEDS ORDERED: MENTHOL/PHENOL 1 EACH UD MM PRN (17:44)
[2018-05-20] MEDS ORDERED: MAGNESIUM HYDROX 2400MG/30ML ORAL SUSPENSION 30 ML CUP PO PRN (17:44)
[2018-05-20] MEDS ORDERED: IBUPROFEN 400 MG TABLET (FP) PO PRN (17:44)
[2018-05-20] MEDS ORDERED: ACETAMINOPHEN 325 MG TABLET (FP) PO PRN (17:44)
[2018-05-20] MEDS ORDERED: chlordiazePOXIDE HCL 25 MG CAPSULE PO PRN (17:44)
[2018-05-20] MEDS ORDERED: MAG HYDROX/AL HYDROX/SIMETH 30 ML UNIT-DOSE CUP PO PRN (17:44)
[2018-05-20] MEDS ORDERED: LOPERAMIDE HCL 2 MG CAPSULE PO PRN (17:44)
[2018-05-20] MEDS ORDERED: guaiFENesin/D-METHORPHAN HB 10 ML UNIT-DOSE CUPS PO PRN (17:44)
[2018-05-20] MEDS ORDERED: MAGNESIUM CITRATE 300 ML BOTTLE PO PRN (17:44)
[2018-05-20] MEDS ORDERED: P-EPHED 60MG/TRIPROLIDI 2.5MG TABLET PO PRN (17:44)
[2018-05-20] MEDS ORDERED: ALBUTEROL SO4 8 GM HFA INHALER IH PRN (17:45)
[2018-05-20 17:56] VITALS: BMI 28.2
[2018-05-20] MEDS ORDERED: ALBUTEROL SO4 0.083% IH SOL 2.5 MG/3 ML VIAL.NEB. NEB PRN (19:17)
[2018-05-20] MEDS: THIAMINE HCL 100 MG TABLET (FP) PO SCH (21:19)
[2018-05-20] MEDS: chlordiazePOXIDE HCL 25 MG CAPSULE PO SCH (22:05)
[2018-05-20] MEDS: MELATONIN 5 MG TABLETS PO PRN (22:05)
[2018-05-21] MEDS: chlordiazePOXIDE HCL 25 MG CAPSULE PO SCH ×4 (05:51→22:13)
[2018-05-21] MEDS: amLODIPine BESYLATE 10 MG TABLET (FP) PO SCH (10:06)
[2018-05-21] MEDS: PRENATAL VITAMINS W/ FOLIC ACID TABLET (FP) PO SCH (10:06)
[2018-05-21] MEDS: EMTRICITABINE 200MG/TENOFOVIR 300MG PO SCH (10:07)
[2018-05-21 10:40] LABS: HEMATOCRIT 38.2 % (35.4-49); HEMOGLOBIN 13.1 GM/dL (11.7-16.9); MCH 33.7 pg (25.7-33.7); MCHC 34.3 g/dl (32.0-35.9); MEAN CELL VOLUME 98.3 fl (80-96); MEAN PLT VOLUME 8.4 fl (7.5-11.1); PLATELET COUNT 264 K/MM3 (134-434); RBC 3.88 M/mm3 (4.00-5.60); RDW 14.5 % (11.9-15.9); WHITE BLOOD COUNT 6.5 K/mm3 (4.0-10.0)
[2018-05-21 10:53] LABS: ALBUMIN 3.4 g/dl (3.4-5.0); ALK PHOS 95 U/L (45-117); ANION GAP 10 MMOL/L (8-16); BILIRUBIN,TOTAL 0.5 mg/dL (0.2-1); BLOOD UREA NITROGEN 13 mg/dL (7-18); CHLORIDE 108 mmol/L (98-107); CO2 23 mmol/L (21-32); CREATININE 0.9 mg/dL (0.55-1.3); GLUCOSE,RANDOM 88 mg/dL (74-106); POTASSIUM 4.1 mmol/L (3.5-5.1); SGOT/AST 14 U/L (15-37); SGPT/ALT 23 U/L (13-61); SODIUM 141 mmol/L (136-145); TOT PROT 6.3 g/dl (6.4-8.2)
--- NOTE | 2018-05-21 17:14 | PN ---
S CIWA - CIWA Score Nausea/Vomitin-No Nausea/No Vomiting Muscle Tremors: None Anxiety: 2 Agitation: 0-Normal Activity Paroxysmal Sweats: 3 Orientation: 0-Oriented Tacttile Disturbances: 2-Mild Itch/Numbness/Burn Auditory Disturbances: 0-None Visual Disturbances: 2-Mild Sensitivity Headache: 3-Moderate CIWA-Ar Total Score: 12 S Progress Note (SOAP) Subjective: Chills, Sweating, H/A, Anxious, Body Aches. Objective: PATIENT A & O X 3. IN NO ACUTE DISTRESS. 05/21/18 17:12 Vital Signs Temperature 96.2 F L 05/21/18 14:11 Pulse Rate 66 05/21/18 14:11 Respiratory Rate 18 05/21/18 14:11 Blood Pressure 118/72 05/21/18 14:11 O2 Sat by Pulse Oximetry (%) Laboratory Tests 05/21/18 05/21/18 07:00 07:00 WBC 6.5 RBC 3.88 L Hgb 13.1 Hct 38.2 MCV 98.3 H MCH 33.7 MCHC 34.3 RDW 14.5 Plt Count 264 MPV 8.4 D Sodium 141 Potassium 4.1 Chloride 108 H Carbon Dioxide 23 Anion Gap 10 BUN 13 Creatinine 0.9 Creat Clearance w eGFR > 60 Random Glucose 88 Calcium 8.0 L Total Bilirubin 0.5 AST 14 L ALT 23 Alkaline Phosphatase 95 Total Protein 6.3 L Albumin 3.4 LABS NOTED. RPR RESULT PENDING. 05/21/18 17:13 Assessment: 05/21/18 17:13 WITHDRAWAL SYMPTOMS. Plan: CONTINUE DETOX.
[2018-05-21] MEDS: THIAMINE HCL 100 MG TABLET (FP) PO SCH (22:13)
[2018-05-21] MEDS: MELATONIN 5 MG TABLETS PO PRN (22:14)
[2018-05-22] MEDS: chlordiazePOXIDE HCL 25 MG CAPSULE PO SCH ×2 (05:19→10:09)
[2018-05-22] MEDS: amLODIPine BESYLATE 10 MG TABLET (FP) PO SCH (10:07)
[2018-05-22] MEDS: PRENATAL VITAMINS W/ FOLIC ACID TABLET (FP) PO SCH (10:07)
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
[2018-05-22] MEDS: EMTRICITABINE 200MG/TENOFOVIR 300MG PO SCH (13:13)
[2018-05-22 13:39] VITALS: BP 102/59; PULSE 91; TEMP 98.1
--- NOTE | 2018-05-22 16:14 | PN ---
S CIWA - CIWA Score Nausea/Vomitin-No Nausea/No Vomiting Muscle Tremors: None Anxiety: 4-Mod. Anxious/Guarded Agitation: 4-Moderately Restless Paroxysmal Sweats: 3 Orientation: 0-Oriented Tacttile Disturbances: 2-Mild Itch/Numbness/Burn Auditory Disturbances: 0-None Visual Disturbances: 1-Very Mild Sensitivity Headache: 0-None Present CIWA-Ar Total Score: 14 BHS Progress Note (SOAP) Subjective: Chills, Sweating, Anxious, Body Aches. Objective: PATIENT A & O X 3, OBSERVED AMBULATING ON UNIT. IN NO ACUTE DISTRESS. 05/22/18 16:14 Vital Signs Temperature 98.1 F 05/22/18 13:37 Pulse Rate 91 H 05/22/18 13:37 Respiratory Rate 20 05/22/18 13:37 Blood Pressure 102/59 L 05/22/18 13:37 O2 Sat by Pulse Oximetry (%) Laboratory Tests 05/21/18 05/21/18 05/21/18 07:00 07:00 07:00 WBC 6.5 RBC 3.88 L Hgb 13.1 Hct 38.2 MCV 98.3 H MCH 33.7 MCHC 34.3 RDW 14.5 Plt Count 264 MPV 8.4 D Sodium 141 Potassium 4.1 Chloride 108 H Carbon Dioxide 23 Anion Gap 10 BUN 13 Creatinine 0.9 Creat Clearance w eGFR > 60 Random Glucose 88 Calcium 8.0 L Total Bilirubin 0.5 AST 14 L ALT 23 Alkaline Phosphatase 95 Total Protein 6.3 L Albumin 3.4 RPR Titer Nonreactive LABS NOTED. Assessment: 05/22/18 16:14 WITHDRAWAL SYMPTOMS. Plan: CONTINUE DETOX. INCREASE DAILY PO FLUID INTAKE.
--- NOTE | 2018-05-22 16:16 | DS ---
[facility] Detox Discharge Summary Admission Date: 05/20/18 Discharge Date: 05/22/18 - History Present History: Alcohol Dependence, Sedative Dependence Additional Comments: PATIENT DOES NOT WISH TO REMAIN TO COMPLETE DETOX REGIMEN. RISKS OF LEAVING DETOX UNIT AGAINST MEDICAL ADVICE AND PRIOR TO COMPLETION OF DETOX REGIMEN EXPLAINED TO PATIENT. PATIENT ADVISED TO GO IMMEDIATELY TO NEAREST ER SHOULD ANY INTOLERABLE DETOX SYMPTOMS DEVELOP AT ANY TIME. PATIENT VERBALIZED UNDERSTANDING OF ALL INFORMATION / RECOMMENDATIONS PRESENTED TO HIM PRIOR TO DEPARTURE FROM DETOX UNIT. PATIENT LEFT DETOX UNIT IN STABLE MEDICAL CONDITION. Pertinent Past History: Asthma, History of Depression, History of Bipolar Disorder, History of Seizures , Nicotine Dependence, History of Cardiac Disease, HTN. - Physical Exam Results Vital Signs: Vital Signs Temperature 98.1 F 05/22/18 13:37 Pulse Rate 91 H 05/22/18 13:37 Respiratory Rate 20 05/22/18 13:37 Blood Pressure 102/59 L 05/22/18 13:37 O2 Sat by Pulse Oximetry (%) Pertinent Admission Physical Exam Findings: WITHDRAWAL SYMPTOMS. Laboratory Tests 05/21/18 05/21/18 05/21/18 07:00 07:00 07:00 WBC 6.5 RBC 3.88 L Hgb 13.1 Hct 38.2 MCV 98.3 H MCH 33.7 MCHC 34.3 RDW 14.5 Plt Count 264 MPV 8.4 D Sodium 141 Potassium 4.1 Chloride 108 H Carbon Dioxide 23 Anion Gap 10 BUN 13 Creatinine 0.9 Creat Clearance w eGFR > 60 Random Glucose 88 Calcium 8.0 L Total Bilirubin 0.5 AST 14 L ALT 23 Alkaline Phosphatase 95 Total Protein 6.3 L Albumin 3.4 RPR Titer Nonreactive LABS NOTED. - Treatment Hospital Course: Detoxed Safely - Medication Discharge Medications: Ambulatory Orders Albuterol Sulfate Inhaler - [Ventolin HFA Inhaler -] 2 inh IH Q4H PRN 03/23/12 Citalopram Hydrobromide [Celexa -] 10 mg PO DAILY #30 tablet 01/29/15 Divalproex [Depakote -] 500 mg PO BID 09/05/15 Gabapentin [Neurontin -] 300 mg PO TID 09/05/15 Amlodipine Besylate [Norvasc -] 10 mg PO DAILY 12/08/17 Zolpidem Tartrate [Ambien] 10 mg PO HS 12/08/17 Aripiprazole [Abilify -] 30 mg PO DAILY 01/21/18 Naproxen [Naprosyn -] 500 mg PO BID PRN 01/21/18 Emtricitabine/Tenofovir [Truvada] 1 tab PO DAILY 05/20/18 - Diagnosis (1) Alcohol dependence with withdrawal, uncomplicated Status: Acute (2) Nicotine dependence Status: Chronic Qualifiers: Nicotine product type: cigarettes Substance use status: in withdrawal Qualified Code(s): F17.213 - Nicotine dependence, cigarettes, with withdrawal (3) Non-compliant patient Status: Chronic (4) Sedative hypnotic or anxiolytic dependence Status: Chronic (5) Substance induced mood disorder Status: Chronic (6) Bipolar disorder Status: Chronic Qualifiers: Active/Remission status: currently active Current bipolar episode type: depressed Current episode severity: mild Qualified Code(s): F31.31 - Bipolar disorder, current episode depressed, mild - AMA Did Patient Leave Against Medical Advice: Yes (PATIENT DID NOT WISH TO REMAIN TO COMPLETE DETOX REGIMEN.)
[2018-05-22] MEDS ORDERED: chlordiazePOXIDE 5 MG CAPSULE PO SCH (23:00)
[2018-05-23] MEDS ORDERED: chlordiazePOXIDE HCL 10 MG CAPSULE PO SCH (23:00)
== END 2018-05-22 14:26 | disposition left against medical advice (07) | DRG 770 ==
LOC: YASAS 15:54 → Y3N 19:35
PROVIDERS: ADMIT Neuromusculoskeletal Medicine & OMM; ATTEND Neuromusculoskeletal Medicine & OMM
PROC: HZ2ZZZZ Detoxification Services for Substance Abuse Treatment (ICD-10-PCS; principal; 2018-05-20)
DX: F10.230 Alcohol dependence with withdrawal, uncomplicated (principal); F13.20 Sedative, hypnotic or anxiolytic dependence, uncomplicated; F17.213 Nicotine dependence, cigarettes, with withdrawal; F31.31 Bipolar disorder, current episode depressed, mild; F19.24 Other psychoactive substance dependence with psychoactive substance-induced mood disorder; I10 Essential (primary) hypertension; J45.909 Unspecified asthma, uncomplicated; Z86.19 Personal history of other infectious and parasitic diseases; Z86.69 Personal history of other diseases of the nervous system and sense organs; Z86.74 Personal history of sudden cardiac arrest; Z20.6 Contact with and (suspected) exposure to human immunodeficiency virus [HIV]
CPT/HCPCS: 36415; 80053; 85027; 86593

== ENCOUNTER 2018-07-05 19:46 | Inpatient (IN) | payer OTHER ==
[2018-07-05 20:39] VITALS: BMI 28.0
--- NOTE | 2018-07-05 23:51 | HP ---
CIWA Score Nausea/Vomitin-Mild Nausea/No Vomiting Muscle Tremors: 5 Anxiety: 3 Agitation: 4-Moderately Restless Paroxysmal Sweats: 2 Orientation: 1-Uncertain about Date Tacttile Disturbances: 0-None Auditory Disturbances: 0-None Visual Disturbances: 0-None Headache: 3-Moderate CIWA-Ar Total Score: 19 - Admission Criteria OASAS Guidelines: Admission for Medically Managed Detox: Requires at least one of the followin. CIWA greater than 12 2. Seizures within the past 24 hours 3. Delirium tremens within the past 24 hours 4. Hallucinations within the past 24 hours 5. Acute intervention needed for co occurring medical disorder 6. Acute intervention needed for co occurring psychiatric disorder 7. Severe withdrawal that cannot be handled at a lower level of care (continued vomiting, continued diarrhea, abnormal vital signs) requiring intravenous medication and/or fluids 8. Admission ROS S - HPI Chief Complaint: Alcohol withdrawal symptoms Allergies/Adverse Reactions: Allergies Allergy/AdvReac Type Severity Reaction Status Date / Time No Known Allergies Allergy Verified 07/05/18 23:02 History of Present Illness: 42 years old male with a long history of alcohol dependence is seeking admission to detox. Patient has been to previous detox and reports 3 years of sobriety. He has medical history of hypertension, asthma, seizure, gonorrhea, depression and anxiety.He denies suicide attempt and suicidal ideation at this time. Exam Limitations: No Limitations - Ebola screening Have you traveled outside of the country in the last 21 days: No (N) Have you had contact with anyone from an Ebola affected area: No Have you been sick,other than usual withdrawal symptoms: No Do you have a fever: No - Review of Systems Constitutional: Chills, Loss of Appetite, Malaise, Changes in sleep EENT: reports: Sinus Pressure Respiratory: reports: No Symptoms reported Cardiac: reports: No Symptoms Reported GI: reports: Diarrhea (x 3), Nausea, Poor Appetite, Poor Fluid Intake, Abdominal cramping : reports: No Symptoms Reported Musculoskeletal: reports: Back Pain, Other (right leg pain) Integumentary: reports: No Symptoms Reported, See HPI, Flushing Neuro: reports: Seizure, Tremors Endocrine: reports: No Symptoms Reported Hematology: reports: No Symptoms Reported Psychiatric: reports: Anxious, Depressed Other Systems: Reviewed and Negative Patient History - Patient Medical History Hx Anemia: No Hx Asthma: Yes (Albuterol) Hx Chronic Obstructive Pulmonary Disease (COPD): No Hx Cancer: No Hx Cardiac Disorders: Yes (cardiac arrest 6yrs ago) Hx Congestive Heart Failure: No Hx Hypertension: Yes (Norvasc) Hx Hypercholesterolemia: No Hx Pacemaker: No HX Cerebrovascular Accident: No Hx Seizures: Yes (LAST SEIZURE last 02/11- Neurotin) Hx Dementia: No Hx Diabetes: No Hx Gastrointestinal Disorders: No Hx Liver Disease: No Hx Genitourinary Disorders: No Hx Sexually Transmitted Disorders: Yes (gonorrhea) Hx Renal Disease (ESRD): No Hx Thyroid Disease: No Hx Human Immunodeficiency Virus (HIV): No (negative last 01/12 negative) Hx Hepatitis C: No Hx Depression: Yes (Celexa) Hx Suicide Attempt: No Hx Bipolar Disorder: Yes (abilify, depakote) Hx Schizophrenia: No Other Medical History: Anxiety - Patient Surgical History Past Surgical History: No Hx Neurologic Surgery: No Hx Cataract Extraction: No Hx Cardiac Surgery: No Hx Lung Surgery: No Hx Breast Surgery: No Hx Breast Biopsy: No Hx Abdominal Surgery: No Hx Appendectomy: No Hx Cholecystectomy: No Hx Genitourinary Surgery: No Hx Section: No Hx Orthopedic Surgery: Yes (lower back sx (fall)-lumber spine surgery 3yrs ago) Anesthesia Reaction: No - PPD History Previous Implant?: No (PPD POSITIVE) Documented Results: Positive w/proof Implanted On Prior R Admission?: Yes PPD to be Administered?: No - Reproductive History Patient is a Female of Child Bearing Age (11 -55 yrs old): No (Male) - Smoking Cessation Smoking history: Current some day smoker Have you smoked in the past 12 months: Yes Aproximately how many cigarettes per day: 10 Cigars Per Day: 0 Hx Chewing Tobacco Use: No Initiated information on smoking cessation: Yes 'Breaking Loose' booklet given: 07/05/18 - Substance & Tx. History Hx Alcohol Use: Yes Hx Substance Use: Yes Substance Use Type: Cocaine, Marijuana, Tranquilizers Hx Substance Use Treatment: Yes ([facility]) - Substances Abused Alcohol Route: Oral Frequency: Daily Amount used: 4 PINTS OF [place]ODKA Age of first use: 6 Date of Last Use: 07/05/18 Family Disease History - Family Disease History Family Disease History: CA: Mother (BREAST CANCER), Other: Grandparent (uncle prostate ca) Admission Physical Exam [facility] - Vital Signs Vital Signs: Vital Signs - 24 hr 07/05/18 20:32 Temperature 97.8 F Pulse Rate 88 Respiratory 18 Rate Blood Pressure 115/65 - Physical General Appearance: Yes: Moderate Distress, Tremorous, Sweating, Anxious HEENTM: Yes: Normal ENT Inspection, Normal Voice, SYLVAIN Respiratory: Yes: Lungs Clear, Normal Breath Sounds, No Respiratory Distress Neck: Yes: Supple Breast: Yes: Breast Exam Deferred Cardiology: Yes: Regular Rhythm, Regular Rate Abdominal: Yes: Normal Bowel Sounds Genitourinary: Yes: Within Normal Limits Back: Yes: Normal Inspection Extremities: Yes: Tremors Neurological: Yes: Alert, Normal Mood/Affect Integumentary: Yes: Warm Lymphatic: Yes: Within Normal Limits - Diagnostic (1) Alcohol dependence with withdrawal, uncomplicated Current Visit: Yes Status: Chronic (2) Cocaine dependence Current Visit: Yes Status: Chronic Qualifiers: Substance use status: uncomplicated Qualified Code(s): F14.20 - Cocaine dependence, uncomplicated (3) DM2 (diabetes mellitus, type 2) Current Visit: Yes Status: Chronic Qualifiers: Diabetes mellitus complication status: with unspecified complications (4) Use of cane as ambulatory aid Current Visit: Yes Status: Chronic (5) Anxiety disorder Current Visit: Yes Status: Chronic (6) Asthma Current Visit: Yes Status: Chronic (7) DEPRESSION Current Visit: Yes Status: Chronic (8) Essential hypertension Current Visit: No Status: Chronic (9) Nicotine dependence Current Visit: Yes Status: Chronic Qualifiers: Nicotine product type: cigarettes Substance use status: uncomplicated Qualified Code(s): F17.210 - Nicotine dependence, cigarettes, uncomplicated (10) Seizure disorder Current Visit: Yes Status: Chronic Comment: reports currently on neurontin 300 mg TID Cleared for Admission [facility] - Detox or Rehab [facility] Level of Care: Medically Managed Detox Regimen/Protocol: Librium [facility] Breath Alcohol Content Breath Alcohol Content: 0 Urine Drug Screen - Results Drug Screen Negative: No Urine Drug Screen Results: THC-Marijuana, MET-Methamphetamine, BZO- Benzodiazepines Inpatient Rehab Admission - Rehab Decision to Admit Inpatient rehab admission?: No
[2018-07-05] MEDS ORDERED: NICOTINE POLACRILEX 2 MG GUM BUC PRN (23:58)
[2018-07-05] MEDS ORDERED: hydrOXYzine PAMOATE 25 MG CAPSULE (FP) PO PRN (23:58)
[2018-07-05] MEDS ORDERED: MAGNESIUM CITRATE 300 ML BOTTLE PO PRN (23:58)
[2018-07-05] MEDS ORDERED: IBUPROFEN 400 MG TABLET (FP) PO PRN (23:58)
[2018-07-05] MEDS ORDERED: MAGNESIUM HYDROX 2400MG/30ML ORAL SUSPENSION 30 ML CUP PO PRN (23:58)
[2018-07-05] MEDS ORDERED: MELATONIN 5 MG TABLETS PO PRN (23:58)
[2018-07-05] MEDS ORDERED: BISMUTH SUBSALICYLATE 524 MG/30 ML UD PO PRN (23:58)
[2018-07-05] MEDS ORDERED: MENTHOL/PHENOL 1 EACH UD MM PRN (23:58)
[2018-07-05] MEDS ORDERED: ACETAMINOPHEN 325 MG TABLET (FP) PO PRN ×2 (23:58)
[2018-07-05] MEDS ORDERED: MAG HYDROX/AL HYDROX/SIMETH 30 ML UNIT-DOSE CUP PO PRN (23:58)
[2018-07-06] MEDS ORDERED: chlordiazePOXIDE HCL 25 MG CAPSULE PO ONE (00:06)
[2018-07-06] MEDS ORDERED: chlordiazePOXIDE HCL 25 MG CAPSULE PO PRN (00:06)
[2018-07-06] MEDS ORDERED: guaiFENesin 200 MG/10 ML 10 ML UNIT-DOSE CUPS PO PRN (01:27)
[2018-07-06] MEDS ORDERED: P-EPHED 60MG/TRIPROLIDI 2.5MG TABLET PO PRN (01:27)
[2018-07-06] MEDS: ALBUTEROL SO4 8 GM HFA INHALER IH PRN (01:30)
[2018-07-06] MEDS: GABAPENTIN 300 MG CAPSULE (FP) PO SCH ×3 (05:55→22:30)
[2018-07-06] MEDS: chlordiazePOXIDE HCL 25 MG CAPSULE PO SCH ×4 (05:55→22:29)
--- NOTE | 2018-07-06 08:56 | PN ---
BHS CIWA - CIWA Score Nausea/Vomitin Muscle Tremors: 2 Anxiety: 2 Agitation: 2 Paroxysmal Sweats: 1-Minimal Palms Moist Orientation: 0-Oriented Tacttile Disturbances: 1-Very Mild Itch/Numbness Auditory Disturbances: 1-Very Mild Visual Disturbances: 0-None Headache: 2-Mild CIWA-Ar Total Score: 13 BHS Progress Note (SOAP) Subjective: alert,irritable,anxious,interrupted sleep,tremor Objective: 07/06/18 08:55 Vital Signs Temperature 97.3 F L 07/06/18 07:10 Pulse Rate 66 07/06/18 07:10 Respiratory Rate 18 07/06/18 07:10 Blood Pressure 97/52 L 07/06/18 07:10 O2 Sat by Pulse Oximetry (%) 07/06/18 08:56 labs pending Assessment: 07/06/18 08:56 withdrawal symptom Plan: continue detox
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
[2018-07-06] MEDS: PRENATAL VITAMINS W/ FOLIC ACID TABLET (FP) PO SCH (11:00)
[2018-07-06] MEDS: NICOTINE 14 MG/24 HOURS TOPICAL PATCH TD SCH (11:00)
[2018-07-06] MEDS: ARIPiprazole 10 MG TABLET PO SCH (11:00)
[2018-07-06] MEDS: amLODIPine BESYLATE 10 MG TABLET (FP) PO SCH (12:26)
[2018-07-06 12:40] LABS: HEMATOCRIT 36.1 % (35.4-49); HEMOGLOBIN 12.5 GM/dL (11.7-16.9); MCH 34.5 pg (25.7-33.7); MCHC 34.5 g/dl (32.0-35.9); MEAN PLT VOLUME 8.7 fl (7.5-11.1); PLATELET COUNT 208 K/MM3 (134-434); RBC 3.61 M/mm3 (4.00-5.60); RDW 14.6 % (11.9-15.9)
[2018-07-06 13:01] LABS: ALBUMIN 3.2 g/dl (3.4-5.0); ALK PHOS 54 U/L (45-117); ANION GAP 6 MMOL/L (8-16); BILIRUBIN,TOTAL 0.7 mg/dL (0.2-1); BLOOD UREA NITROGEN 22 mg/dL (7-18); CHLORIDE 108 mmol/L (98-107); CO2 23 mmol/L (21-32); CREATININE 0.8 mg/dL (0.55-1.3); GLUCOSE,RANDOM 84 mg/dL (74-106); POTASSIUM 4.1 mmol/L (3.5-5.1); SGOT/AST 19 U/L (15-37); SGPT/ALT 26 U/L (13-61); SODIUM 138 mmol/L (136-145); TOT PROT 6.2 g/dl (6.4-8.2)
[2018-07-06] MEDS: THIAMINE HCL 100 MG TABLET (FP) PO SCH (22:29)
[2018-07-06] MEDS: DIVALPROEX SODIUM 500 MG TABLET E.C. PO SCH (22:30)
[2018-07-07] MEDS: chlordiazePOXIDE HCL 25 MG CAPSULE PO SCH ×4 (05:53→22:35)
[2018-07-07] MEDS: GABAPENTIN 300 MG CAPSULE (FP) PO SCH ×3 (05:53→22:35)
[2018-07-07] MEDS: ARIPiprazole 10 MG TABLET PO SCH (10:47)
[2018-07-07] MEDS: ALBUTEROL SO4 8 GM HFA INHALER IH PRN (10:47)
[2018-07-07] MEDS: NICOTINE 14 MG/24 HOURS TOPICAL PATCH TD SCH (10:47)
[2018-07-07] MEDS: amLODIPine BESYLATE 10 MG TABLET (FP) PO SCH (10:47)
[2018-07-07] MEDS: PRENATAL VITAMINS W/ FOLIC ACID TABLET (FP) PO SCH (10:47)
[2018-07-07] MEDS: METHOCARBAMOL 500 MG TABLET PO PRN ×2 (10:48→22:35)
--- NOTE | 2018-07-07 14:55 | PN ---
S CIWA - CIWA Score Nausea/Vomitin-No Nausea/No Vomiting Muscle Tremors: 2 Anxiety: 4-Mod. Anxious/Guarded Agitation: 0-Normal Activity Paroxysmal Sweats: No Perspiration Orientation: 0-Oriented Tacttile Disturbances: 0-None Auditory Disturbances: 2-Mild Harshness/Frighten Visual Disturbances: 3-Moderate Sensitivity Headache: 0-None Present CIWA-Ar Total Score: 11 BHS Progress Note (SOAP) Subjective: Anxious, Interrupted Sleep, Tremors. Objective: 07/07/18 14:53 Vital Signs Temperature 97.1 F L 07/07/18 13:31 Pulse Rate 78 07/07/18 13:31 Respiratory Rate 18 07/07/18 13:31 Blood Pressure 105/67 07/07/18 13:31 O2 Sat by Pulse Oximetry (%) Laboratory Tests 07/06/18 07/06/18 07/06/18 07:00 07:00 07:00 WBC 6.0 RBC 3.61 L Hgb 12.5 Hct 36.1 MCV 100.0 H MCH 34.5 H MCHC 34.5 RDW 14.6 Plt Count 208 D MPV 8.7 Sodium 138 Potassium 4.1 Chloride 108 H Carbon Dioxide 23 Anion Gap 6 L BUN 22 H Creatinine 0.8 Creat Clearance w eGFR > 60 Random Glucose 84 Calcium 8.0 L Total Bilirubin 0.7 AST 19 ALT 26 Alkaline Phosphatase 54 Total Protein 6.2 L Albumin 3.2 L Valproic Acid RPR Titer Nonreactive 07/07/18 06:00 WBC RBC Hgb Hct MCV MCH MCHC RDW Plt Count MPV Sodium Potassium Chloride Carbon Dioxide Anion Gap BUN Creatinine Creat Clearance w eGFR Random Glucose Calcium Total Bilirubin AST ALT Alkaline Phosphatase Total Protein Albumin Valproic Acid 3.6 L RPR Titer LABS NOTED.
[2018-07-07] MEDS: CALCIUM 500MG/VIT-D 200 UNITS COMBO TABLET (FP) PO SCH ×2 (15:31→22:35)
--- NOTE | 2018-07-07 16:16 | PN ---
BHS Progress Note Note: RESULT OF CXR (FOR HISTORY OF POSITIVE PPD) PENDING AT THIS TIME. [employer]
[2018-07-07] MEDS: DIVALPROEX SODIUM 500 MG TABLET E.C. PO SCH (22:35)
[2018-07-07] MEDS: THIAMINE HCL 100 MG TABLET (FP) PO SCH (22:35)
[2018-07-08] MEDS ORDERED: chlordiazePOXIDE HCL 10 MG CAPSULE PO PRN (05:00)
[2018-07-08] MEDS: GABAPENTIN 300 MG CAPSULE (FP) PO SCH (05:48)
[2018-07-08] MEDS: chlordiazePOXIDE HCL 10 MG CAPSULE PO SCH ×2 (05:48→10:04)
--- NOTE | 2018-07-08 08:58 | PN ---
S Progress Note (SOAP) Subjective: alert,irritable,anxious,interrupted sleep Objective: 07/08/18 08:57 Vital Signs Temperature 96.8 F L 07/08/18 07:47 Pulse Rate 75 07/08/18 07:47 Respiratory Rate 18 07/08/18 07:47 Blood Pressure 125/85 07/08/18 07:47 O2 Sat by Pulse Oximetry (%) Assessment: 07/08/18 08:58 withdrawal symptom Plan: continue detox,discharge in am
--- NOTE | 2018-07-08 09:00 | PN ---
BHS Progress Note Note: chest ray on 07/06/18 noted no acute pathology
[2018-07-08 09:15] VITALS: BP 117/62; PULSE 88; TEMP 97.7
[2018-07-08] MEDS: PRENATAL VITAMINS W/ FOLIC ACID TABLET (FP) PO SCH (10:04)
[2018-07-08] MEDS: CALCIUM 500MG/VIT-D 200 UNITS COMBO TABLET (FP) PO SCH (10:04)
[2018-07-08] MEDS: amLODIPine BESYLATE 10 MG TABLET (FP) PO SCH (10:04)
[2018-07-08] MEDS: NICOTINE 14 MG/24 HOURS TOPICAL PATCH TD SCH (10:04)
[2018-07-08] MEDS: ARIPiprazole 10 MG TABLET PO SCH (10:04)
--- NOTE | 2018-07-08 10:34 | PN ---
Mitzi Progress Note Note: patient did not want to complete treatment,stated he has court appointment today ,and has to be there this afternoon, risk of relapsing is high ,explained to patient,he understood,signed release ama ,advise follow up with his own medical provider for medical problem,to er for emergency problem,seen by counselor
--- NOTE | 2018-07-08 10:40 | DS ---
[facility] Detox Discharge Summary Admission Date: 07/06/18 Discharge Date: 07/08/18 - History Present History: Alcohol Dependence, Cannabis Dependence Additional Comments: patient signed release ama,stated has to go to court Pertinent Past History: type 2 dm asthma essential hypertension nicotine dependence use cane for ambulatoty aid - Physical Exam Results Vital Signs: Vital Signs Temperature 97.7 F 07/08/18 09:15 Pulse Rate 88 07/08/18 09:15 Respiratory Rate 18 07/08/18 09:15 Blood Pressure 117/62 07/08/18 09:15 O2 Sat by Pulse Oximetry (%) Pertinent Admission Physical Exam Findings: withdrawal signs and symptom Laboratory Last Values WBC 6.0 K/mm3 (4.0-10.0) 07/06/18 07:00 RBC 3.61 M/mm3 (4.00-5.60) L 07/06/18 07:00 Hgb 12.5 GM/dL (11.7-16.9) 07/06/18 07:00 Hct 36.1 % (35.4-49) 07/06/18 07:00 MCV 100.0 fl (80-96) H 07/06/18 07:00 MCH 34.5 pg (25.7-33.7) H 07/06/18 07:00 MCHC 34.5 g/dl (32.0-35.9) 07/06/18 07:00 RDW 14.6 % (11.9-15.9) 07/06/18 07:00 Plt Count 208 K/MM3 (134-434) D 07/06/18 07:00 MPV 8.7 fl (7.5-11.1) 07/06/18 07:00 Sodium 138 mmol/L (136-145) 07/06/18 07:00 Potassium 4.1 mmol/L (3.5-5.1) 07/06/18 07:00 Chloride 108 mmol/L (98-107) H 07/06/18 07:00 Carbon Dioxide 23 mmol/L (21-32) 07/06/18 07:00 Anion Gap 6 MMOL/L (8-16) L 07/06/18 07:00 BUN 22 mg/dL (7-18) H 07/06/18 07:00 Creatinine 0.8 mg/dL (0.55-1.3) 07/06/18 07:00 Creat Clearance w eGFR > 60 (>60) 07/06/18 07:00 Random Glucose 84 mg/dL (74-106) 07/06/18 07:00 Calcium 8.0 mg/dL (8.5-10.1) L 07/06/18 07:00 Total Bilirubin 0.7 mg/dL (0.2-1) 07/06/18 07:00 AST 19 U/L (15-37) 07/06/18 07:00 ALT 26 U/L (13-61) 07/06/18 07:00 Alkaline Phosphatase 54 U/L (45-117) 07/06/18 07:00 Total Protein 6.2 g/dl (6.4-8.2) L 07/06/18 07:00 Albumin 3.2 g/dl (3.4-5.0) L 07/06/18 07:00 Valproic Acid 3.6 ug/ml (50-100) L 07/07/18 06:00 RPR Titer Nonreactive (NONREACTIVE) 07/06/18 07:00 - Medication Discharge Medications: Ambulatory Orders Albuterol Sulfate Inhaler - [Ventolin HFA Inhaler -] 2 inh IH Q4H PRN 03/23/12 Citalopram Hydrobromide [Celexa -] 10 mg PO DAILY #30 tablet 01/29/15 Divalproex [Depakote -] 500 mg PO BID 09/05/15 Gabapentin [Neurontin -] 300 mg PO TID 09/05/15 Amlodipine Besylate [Norvasc -] 10 mg PO DAILY 12/08/17 Aripiprazole [Abilify -] 30 mg PO DAILY 01/21/18 - Diagnosis (1) Alcohol dependence with withdrawal, uncomplicated Current Visit: Yes Status: Acute (2) Asthma Current Visit: Yes Status: Chronic (3) Cocaine dependence Current Visit: Yes Status: Chronic Qualifiers: Substance use status: uncomplicated Qualified Code(s): F14.20 - Cocaine dependence, uncomplicated (4) DM2 (diabetes mellitus, type 2) Current Visit: Yes Status: Chronic Qualifiers: Diabetes mellitus complication status: with unspecified complications (5) Achilles tendon injury Current Visit: No Status: Acute Qualifiers: (6) Frequent falls Current Visit: No Status: Acute (7) Nicotine dependence Current Visit: No Status: Chronic Qualifiers: Nicotine product type: cigarettes - AMA Did Patient Leave Against Medical Advice: Yes
[2018-07-09] MEDS ORDERED: chlordiazePOXIDE HCL 10 MG CAPSULE PO SCH (05:00)
== END 2018-07-08 12:05 | disposition left against medical advice (07) | DRG 770 ==
LOC: YASAS 19:46 → Y6N 07-06 00:45
PROVIDERS: ADMIT Surgery; ATTEND Surgery
PROC: HZ2ZZZZ Detoxification Services for Substance Abuse Treatment (ICD-10-PCS; principal; 2018-07-06)
DX: F10.230 Alcohol dependence with withdrawal, uncomplicated (principal); F14.20 Cocaine dependence, uncomplicated; F17.210 Nicotine dependence, cigarettes, uncomplicated; F31.31 Bipolar disorder, current episode depressed, mild; F41.9 Anxiety disorder, unspecified; F19.24 Other psychoactive substance dependence with psychoactive substance-induced mood disorder; I10 Essential (primary) hypertension; E11.9 Type 2 diabetes mellitus without complications; J45.909 Unspecified asthma, uncomplicated; G40.909 Epilepsy, unspecified, not intractable, without status epilepticus; R26.2 Difficulty in walking, not elsewhere classified; Z99.89 Dependence on other enabling machines and devices; Z87.438 Personal history of other diseases of male genital organs; Z86.74 Personal history of sudden cardiac arrest
CPT/HCPCS: 36415; 71045-TC-FY; 80053; 80164; 85027; 86593

== ENCOUNTER 2018-07-30 10:17 | Inpatient (IN) | payer OTHER ==
[2018-07-30 11:22] VITALS: BMI 30.2
--- NOTE | 2018-07-30 11:49 | HP ---
CIWA Score Nausea/Vomitin-Mild Nausea/No Vomiting Muscle Tremors: None Anxiety: 3 Agitation: 2 Paroxysmal Sweats: 3 Orientation: 0-Oriented Tacttile Disturbances: 1-Very Mild Itch/Numbness Auditory Disturbances: 0-None Visual Disturbances: 2-Mild Sensitivity Headache: 0-None Present CIWA-Ar Total Score: 12 - Admission Criteria OASAS Guidelines: Admission for Medically Managed Detox: Requires at least one of the followin. CIWA greater than 12 2. Seizures within the past 24 hours 3. Delirium tremens within the past 24 hours 4. Hallucinations within the past 24 hours 5. Acute intervention needed for co occurring medical disorder 6. Acute intervention needed for co occurring psychiatric disorder 7. Severe withdrawal that cannot be handled at a lower level of care (continued vomiting, continued diarrhea, abnormal vital signs) requiring intravenous medication and/or fluids 8. Admission ROS S - HPI Allergies/Adverse Reactions: Allergies Allergy/AdvReac Type Severity Reaction Status Date / Time No Known Allergies Allergy Verified 07/30/18 11:11 History of Present Illness: patient here requesting detox from etoh use , 4-5 pints/day vodka , reports progressive increase x 15 years , first age of use 6 , + w/d seizure most recently 2 months ago , + blackouts , + falls denies recent injuries . Reports starts drinking from early in the morning . prior detox x 8-9 , most recently 2 weeks ago at this facility , latest alcohol intake yesterday 2 am , current symptoms as above . denies illicits tobacco : 4-5 cigs/day pmhx : htn, asthma ( hospitalized, intubated - most recently 1 yr ago ) . right leg Achilles tendon tear pshx : denies psych : depression , anxiety , bipolar d/o meds : depakote , gabapentin , celexa , abilify , trazodone , naproxen Exam Limitations: Clinical Condition - Ebola screening Have you traveled outside of the country in the last 21 days: No Have you had contact with anyone from an Ebola affected area: No - Review of Systems Constitutional: See HPI EENT: reports: See HPI Respiratory: reports: Shortness of Breath (known asthma) Cardiac: reports: No Symptoms Reported GI: reports: See HPI : reports: No Symptoms Reported Musculoskeletal: reports: Joint Pain (right ankle Achilles tendon tear, using cane for ambulation) Integumentary: reports: No Symptoms Reported, Dryness Neuro: reports: See HPI Endocrine: reports: No Symptoms Reported Psychiatric: reports: Orientated x3 Patient History - Patient Medical History Hx Anemia: No Hx Asthma: Yes (Albuterol) Hx Chronic Obstructive Pulmonary Disease (COPD): No Hx Cancer: No Hx Cardiac Disorders: Yes (cardiac arrest 6yrs ago) Hx Congestive Heart Failure: No Hx Hypertension: Yes (Norvasc) Hx Hypercholesterolemia: No Hx Pacemaker: No HX Cerebrovascular Accident: No Hx Seizures: Yes (LAST SEIZURE last 02/11- Neurotin) Hx Dementia: No Hx Diabetes: No Hx Gastrointestinal Disorders: No Hx Liver Disease: No Hx Genitourinary Disorders: No Hx Sexually Transmitted Disorders: Yes (gonorrhea) Hx Renal Disease (ESRD): No Hx Thyroid Disease: No Hx Human Immunodeficiency Virus (HIV): No (negative last 01/12 negative) Hx Hepatitis C: No Hx Depression: Yes (Celexa) Hx Suicide Attempt: No Hx Bipolar Disorder: Yes (abilifno, depakote) Hx Schizophrenia: No - Patient Surgical History Past Surgical History: No Hx Neurologic Surgery: No Hx Cataract Extraction: No Hx Cardiac Surgery: No Hx Lung Surgery: No Hx Breast Surgery: No Hx Breast Biopsy: No Hx Abdominal Surgery: No Hx Appendectomy: No Hx Cholecystectomy: No Hx Genitourinary Surgery: No Hx Section: No Hx Orthopedic Surgery: Yes (lower back sx (fall)-lumber spine surgery 3yrs ago) Anesthesia Reaction: No - Smoking Cessation Smoking history: Current some day smoker Have you smoked in the past 12 months: Yes Aproximately how many cigarettes per day: 10 Cigars Per Day: 0 Hx Chewing Tobacco Use: No Initiated information on smoking cessation: No - Substances abused Alcohol Substance route: Oral Frequency: Daily Amount used: 3/4 PINTS VODKA Age of first use: 6 Date of last use: 07/29/18 Family Disease History - Family Disease History Family Disease History: CA: Mother (BREAST CANCER), Other: Grandparent (uncle prostate ca) Admission Physical Exam BHS - Vital Signs Vital Signs: Vital Signs - 24 hr 07/30/18 07/30/18 11:14 11:31 Temperature 98.0 F 98.0 F Pulse Rate 83 83 Respiratory 20 20 Rate Blood Pressure 122/67 122/67 - Physical General Appearance: Yes: Mild Distress, Moderate Distress, Anxious HEENTM: Yes: EOMI, Hearing grossly Normal, Normocephalic, Normal Voice Respiratory: Yes: Chest Non-Tender, Lungs Clear, Normal Breath Sounds Neck: Yes: No masses,lesions,Nodules, Trachea in good position Cardiology: Yes: Regular Rhythm, Regular Rate, S1, S2 Abdominal: Yes: Non Tender, Soft Back: Yes: Normal Inspection Musculoskeletal: Yes: Joint Stiffness, Other (limping right , using cane for stability) Extremities: Yes: Non-Tender, Other (right ankle decreased ROm , tender right Achilles) Neurological: Yes: Fully Oriented, Alert, Motor Strength 5/5, Normal Mood/Affect Integumentary: Yes: Warm - Diagnostic (1) Alcohol dependence with withdrawal, uncomplicated Current Visit: Yes Status: Acute (2) Nicotine dependence Current Visit: Yes Status: Chronic Qualifiers: Nicotine product type: cigarettes Substance use status: uncomplicated Qualified Code(s): F17.210 - Nicotine dependence, cigarettes, uncomplicated Breathalyzer - Breathalyzer Breathalyzer: 0 Urine Drug Screen - Test Device Lot number: [id number] Expiration date: 03/26/20 - Control Is test valid?: Yes - Results Drug screen NEGATIVE: No Urine drug screen results: MTD-Methadone, BZO-Benzodiazepines Inpatient Rehab Admission - Rehab Decision to Admit Inpatient rehab admission?: No
[2018-07-30] MEDS ORDERED: NICOTINE POLACRILEX 2 MG GUM BUC PRN (12:07)
[2018-07-30] MEDS ORDERED: BISMUTH SUBSALICYLATE 524 MG/30 ML UD PO PRN (12:07)
[2018-07-30] MEDS ORDERED: MAGNESIUM CITRATE 300 ML BOTTLE PO PRN (12:07)
[2018-07-30] MEDS ORDERED: MAGNESIUM HYDROX 2400MG/30ML ORAL SUSPENSION 30 ML CUP PO PRN (12:07)
[2018-07-30] MEDS ORDERED: ACETAMINOPHEN 325 MG TABLET (FP) PO PRN ×2 (12:07)
[2018-07-30] MEDS ORDERED: chlordiazePOXIDE HCL 25 MG CAPSULE PO PRN (12:07)
[2018-07-30] MEDS ORDERED: MAG HYDROX/AL HYDROX/SIMETH 30 ML UNIT-DOSE CUP PO PRN (12:07)
[2018-07-30] MEDS ORDERED: MENTHOL/PHENOL 1 EACH UD MM PRN (12:07)
[2018-07-30] MEDS: GABAPENTIN 300 MG CAPSULE (FP) PO SCH ×2 (13:02→22:11)
[2018-07-30 15:17] LABS: HEMATOCRIT 40.5 % (35.4-49); HEMOGLOBIN 13.4 GM/dL (11.7-16.9); MCH 33.5 pg (25.7-33.7); MCHC 33.1 g/dl (32.0-35.9); MEAN CELL VOLUME 101.3 fl (80-96); MEAN PLT VOLUME 8.5 fl (7.5-11.1); PLATELET COUNT 242 K/MM3 (134-434); RBC 3.99 M/mm3 (4.00-5.60); RDW 13.4 % (11.9-15.9); WHITE BLOOD COUNT 5.5 K/mm3 (4.0-10.0)
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
[2018-07-30 15:34] LABS: ALBUMIN 4.4 g/dl (3.4-5.0); ALK PHOS 61 U/L (45-117); ANION GAP 3 MMOL/L (8-16); BILIRUBIN,TOTAL 0.4 mg/dL (0.2-1); BLOOD UREA NITROGEN 17 mg/dL (7-18); CALCIUM 9.6 mg/dL (8.5-10.1); CHLORIDE 107 mmol/L (98-107); CO2 29 mmol/L (21-32); GLUCOSE,RANDOM 82 mg/dL (74-106); POTASSIUM 4.5 mmol/L (3.5-5.1); SGOT/AST 20 U/L (15-37); SGPT/ALT 32 U/L (13-61); SODIUM 138 mmol/L (136-145); TOT PROT 8.2 g/dl (6.4-8.2)
[2018-07-30] MEDS: chlordiazePOXIDE HCL 25 MG CAPSULE PO SCH ×2 (17:35→22:11)
[2018-07-30] MEDS: THIAMINE HCL 100 MG TABLET (FP) PO SCH (22:11)
[2018-07-31] MEDS: chlordiazePOXIDE HCL 25 MG CAPSULE PO SCH ×4 (05:43→22:44)
[2018-07-31] MEDS: GABAPENTIN 300 MG CAPSULE (FP) PO SCH ×3 (05:43→22:44)
[2018-07-31] MEDS: amLODIPine BESYLATE 10 MG TABLET (FP) PO SCH (10:25)
[2018-07-31] MEDS: CITALOPRAM HYDROBROMIDE 10 MG TABLET (FP) PO SCH (10:25)
[2018-07-31] MEDS: ARIPiprazole 15 MG TABLET PO SCH (10:25)
[2018-07-31] MEDS: IBUPROFEN 400 MG TABLET (FP) PO PRN ×2 (10:27→17:49)
[2018-07-31] MEDS: PRENATAL VITAMINS W/ FOLIC ACID TABLET (FP) PO SCH (10:28)
--- NOTE | 2018-07-31 14:08 | PN ---
S CIWA - CIWA Score Nausea/Vomitin-No Nausea/No Vomiting Muscle Tremors: 2 Anxiety: 3 Agitation: 1-Slight > Activity Paroxysmal Sweats: No Perspiration Orientation: 0-Oriented Tacttile Disturbances: 2-Mild Itch/Numbness/Burn Auditory Disturbances: 0-None Visual Disturbances: 3-Moderate Sensitivity Headache: 0-None Present CIWA-Ar Total Score: 11 BHS Progress Note (SOAP) Subjective: Tremors, Anxious, Tremors, Body Aches. Objective: PATIENT A & O X 3, OBSERVED AMBULATING ON UNIT. IN NO ACUTE DISTRESS. 07/31/18 14:07 Vital Signs Temperature 97.2 F L 07/31/18 13:22 Pulse Rate 84 07/31/18 13:22 Respiratory Rate 18 07/31/18 13:22 Blood Pressure 94/62 07/31/18 13:22 O2 Sat by Pulse Oximetry (%) Laboratory Tests 07/30/18 07/30/18 07/30/18 12:40 12:40 12:40 WBC 5.5 RBC 3.99 L Hgb 13.4 Hct 40.5 MCV 101.3 H MCH 33.5 MCHC 33.1 RDW 13.4 Plt Count 242 MPV 8.5 Sodium 138 Potassium 4.5 Chloride 107 Carbon Dioxide 29 Anion Gap 3 L BUN 17 Creatinine 1.0 Creat Clearance w eGFR 81.17 Random Glucose 82 Calcium 9.6 Total Bilirubin 0.4 AST 20 ALT 32 Alkaline Phosphatase 61 Total Protein 8.2 Albumin 4.4 RPR Titer Nonreactive LABS NOTED. Assessment: 07/31/18 14:08 WITHDRAWAL SYMPTOMS. Plan: CONTINUE DETOX.
[2018-07-31] MEDS: THIAMINE HCL 100 MG TABLET (FP) PO SCH (22:44)
[2018-07-31] MEDS: MELATONIN 5 MG TABLETS PO PRN (22:45)
[2018-08-01] MEDS: chlordiazePOXIDE HCL 25 MG CAPSULE PO SCH ×2 (05:37→10:12)
[2018-08-01] MEDS: GABAPENTIN 300 MG CAPSULE (FP) PO SCH ×3 (05:56→22:02)
--- NOTE | 2018-08-01 09:31 | PN ---
S CIWA - CIWA Score Nausea/Vomitin-No Nausea/No Vomiting Muscle Tremors: 2 Anxiety: 1-Mildly Anxious Agitation: 1-Slight > Activity Paroxysmal Sweats: 1-Minimal Palms Moist Orientation: 0-Oriented Tacttile Disturbances: 0-None Auditory Disturbances: 0-None Visual Disturbances: 0-None Headache: 2-Mild CIWA-Ar Total Score: 7 BHS Progress Note (SOAP) Subjective: ambulate with cane steady gait c/o chronic back pain using over the counter topic medication at home lidocain patch for chronic back pain Objective: 08/01/18 09:30 Vital Signs Temperature 97.2 F L 08/01/18 05:57 Pulse Rate 70 08/01/18 05:57 Respiratory Rate 18 08/01/18 05:57 Blood Pressure 107/61 08/01/18 05:57 O2 Sat by Pulse Oximetry (%) Laboratory Last Values WBC 5.5 K/mm3 (4.0-10.0) 07/30/18 12:40 RBC 3.99 M/mm3 (4.00-5.60) L 07/30/18 12:40 Hgb 13.4 GM/dL (11.7-16.9) 07/30/18 12:40 Hct 40.5 % (35.4-49) 07/30/18 12:40 MCV 101.3 fl (80-96) H 07/30/18 12:40 MCH 33.5 pg (25.7-33.7) 07/30/18 12:40 MCHC 33.1 g/dl (32.0-35.9) 07/30/18 12:40 RDW 13.4 % (11.9-15.9) 07/30/18 12:40 Plt Count 242 K/MM3 (134-434) 07/30/18 12:40 MPV 8.5 fl (7.5-11.1) 07/30/18 12:40 Sodium 138 mmol/L (136-145) 07/30/18 12:40 Potassium 4.5 mmol/L (3.5-5.1) 07/30/18 12:40 Chloride 107 mmol/L (98-107) 07/30/18 12:40 Carbon Dioxide 29 mmol/L (21-32) 07/30/18 12:40 Anion Gap 3 MMOL/L (8-16) L 07/30/18 12:40 BUN 17 mg/dL (7-18) 07/30/18 12:40 Creatinine 1.0 mg/dL (0.55-1.3) 07/30/18 12:40 Creat Clearance w eGFR 81.17 (>60) 07/30/18 12:40 Random Glucose 82 mg/dL (74-106) 07/30/18 12:40 Calcium 9.6 mg/dL (8.5-10.1) 07/30/18 12:40 Total Bilirubin 0.4 mg/dL (0.2-1) 07/30/18 12:40 AST 20 U/L (15-37) 07/30/18 12:40 ALT 32 U/L (13-61) 07/30/18 12:40 Alkaline Phosphatase 61 U/L (45-117) 07/30/18 12:40 Total Protein 8.2 g/dl (6.4-8.2) 07/30/18 12:40 Albumin 4.4 g/dl (3.4-5.0) 07/30/18 12:40 RPR Titer Nonreactive (NONREACTIVE) 07/30/18 12:40 lab noted Assessment: 08/01/18 09:30 alcohol withdrawal sx Plan: continue detox
[2018-08-01] MEDS: ARIPiprazole 15 MG TABLET PO SCH (10:12)
[2018-08-01] MEDS: PRENATAL VITAMINS W/ FOLIC ACID TABLET (FP) PO SCH (10:12)
[2018-08-01] MEDS: amLODIPine BESYLATE 10 MG TABLET (FP) PO SCH (10:12)
[2018-08-01] MEDS: CITALOPRAM HYDROBROMIDE 10 MG TABLET (FP) PO SCH (10:12)
[2018-08-01] MEDS: LIDOCAINE 5% TOPICAL PATCH TP SCH (10:12)
[2018-08-01] MEDS ORDERED: chlordiazePOXIDE HCL 10 MG CAPSULE PO PRN (17:00)
[2018-08-01] MEDS: chlordiazePOXIDE HCL 10 MG CAPSULE PO SCH ×2 (17:16→22:02)
[2018-08-01] MEDS ORDERED: LIDOCAINE PATCH REMOVAL MC SCH (22:00)
[2018-08-01] MEDS: THIAMINE HCL 100 MG TABLET (FP) PO SCH (22:02)
[2018-08-01] MEDS: MELATONIN 5 MG TABLETS PO PRN (22:03)
[2018-08-02] MEDS: GABAPENTIN 300 MG CAPSULE (FP) PO SCH (05:38)
[2018-08-02] MEDS: chlordiazePOXIDE HCL 10 MG CAPSULE PO SCH ×2 (05:38→10:15)
[2018-08-02 09:52] VITALS: BP 104/68; PULSE 74; TEMP 97.9
[2018-08-02] MEDS: LIDOCAINE 5% TOPICAL PATCH TP SCH (10:14)
[2018-08-02] MEDS: ARIPiprazole 15 MG TABLET PO SCH (10:15)
[2018-08-02] MEDS: PRENATAL VITAMINS W/ FOLIC ACID TABLET (FP) PO SCH (10:15)
[2018-08-02] MEDS: amLODIPine BESYLATE 10 MG TABLET (FP) PO SCH (10:15)
--- NOTE | 2018-08-02 10:29 | DS ---
[facility] Detox Discharge Summary Admission Date: 07/30/18 Discharge Date: 08/02/18 - History Present History: Alcohol Dependence Additional Comments: 42 years old male admitted on 07/30/18 for alcohol withdrawal stabilization feeling better today alert no acute distress denies suicidal ideation aftercare part of [facility] Pertinent Past History: keep medication list in wallet bring in medication list and lab report to follow up appointment - Physical Exam Results Vital Signs: Vital Signs Temperature 97.9 F 08/02/18 09:49 Pulse Rate 74 08/02/18 09:49 Respiratory Rate 20 08/02/18 09:49 Blood Pressure 104/68 08/02/18 09:49 O2 Sat by Pulse Oximetry (%) Pertinent Admission Physical Exam Findings: alcohol withdrawal sx Laboratory Last Values WBC 5.5 K/mm3 (4.0-10.0) 07/30/18 12:40 RBC 3.99 M/mm3 (4.00-5.60) L 07/30/18 12:40 Hgb 13.4 GM/dL (11.7-16.9) 07/30/18 12:40 Hct 40.5 % (35.4-49) 07/30/18 12:40 MCV 101.3 fl (80-96) H 07/30/18 12:40 MCH 33.5 pg (25.7-33.7) 07/30/18 12:40 MCHC 33.1 g/dl (32.0-35.9) 07/30/18 12:40 RDW 13.4 % (11.9-15.9) 07/30/18 12:40 Plt Count 242 K/MM3 (134-434) 07/30/18 12:40 MPV 8.5 fl (7.5-11.1) 07/30/18 12:40 Sodium 138 mmol/L (136-145) 07/30/18 12:40 Potassium 4.5 mmol/L (3.5-5.1) 07/30/18 12:40 Chloride 107 mmol/L (98-107) 07/30/18 12:40 Carbon Dioxide 29 mmol/L (21-32) 07/30/18 12:40 Anion Gap 3 MMOL/L (8-16) L 07/30/18 12:40 BUN 17 mg/dL (7-18) 07/30/18 12:40 Creatinine 1.0 mg/dL (0.55-1.3) 07/30/18 12:40 Creat Clearance w eGFR 81.17 (>60) 07/30/18 12:40 Random Glucose 82 mg/dL (74-106) 07/30/18 12:40 Calcium 9.6 mg/dL (8.5-10.1) 07/30/18 12:40 Total Bilirubin 0.4 mg/dL (0.2-1) 07/30/18 12:40 AST 20 U/L (15-37) 07/30/18 12:40 ALT 32 U/L (13-61) 07/30/18 12:40 Alkaline Phosphatase 61 U/L (45-117) 07/30/18 12:40 Total Protein 8.2 g/dl (6.4-8.2) 07/30/18 12:40 Albumin 4.4 g/dl (3.4-5.0) 07/30/18 12:40 RPR Titer Nonreactive (NONREACTIVE) 07/30/18 12:40 lab noted - Treatment Hospital Course: Detox Protocol Followed, Detoxed Safely, Responded well, Discharged Condition Good, Rehab Referral Accepted Patient has Accepted a Rehab Referral to: part of [facility] - Medication Discharge Medications: Ambulatory Orders Citalopram Hydrobromide [Celexa -] 10 mg PO DAILY #30 tablet 01/29/15 Aripiprazole [Abilify -] 30 mg PO DAILY 01/21/18 Calcium 500Mg/Vit-D 200 Units [Os-Usman 500+D -] 1 tab PO BID tab 07/08/18 Albuterol Sulfate Inhaler - [Ventolin HFA Inhaler -] 2 puff IH Q4H PRN #1 inhaler 08/02/18 Amlodipine Besylate [Norvasc -] 10 mg PO DAILY #14 tablet 08/02/18 Gabapentin [Neurontin -] 300 mg PO TID #60 capsule 08/02/18 - Diagnosis (1) Asthma Status: Chronic (2) Essential hypertension Status: Chronic (3) Nicotine dependence Status: Acute Qualifiers: Nicotine product type: cigarettes Substance use status: in withdrawal Qualified Code(s): F17.213 - Nicotine dependence, cigarettes, with withdrawal (4) GERD (gastroesophageal reflux disease) Status: Chronic Qualifiers: Esophagitis presence: without esophagitis (5) Alcohol dependence with withdrawal, uncomplicated Status: Acute (6) DM2 (diabetes mellitus, type 2) Status: Chronic Qualifiers: Diabetes mellitus alf insulin use: unspecified laborer marine terminal insulin use status Diabetes mellitus complication status: with unspecified complications Qualified Code(s): E11.8 - Type 2 diabetes mellitus with unspecified complications (7) Nicotine dependence Status: Acute Qualifiers: Nicotine product type: cigarettes Substance use status: in withdrawal Qualified Code(s): F17.213 - Nicotine dependence, cigarettes, with withdrawal - AMA Did Patient Leave Against Medical Advice: No
[2018-08-02] MEDS: CITALOPRAM HYDROBROMIDE 10 MG TABLET (FP) PO SCH (10:57)
[2018-08-02] MEDS ORDERED: chlordiazePOXIDE HCL 10 MG CAPSULE PO SCH (17:00)
== END 2018-08-02 11:00 | disposition home or self-care (01) | DRG 775 ==
LOC: YASAS 10:17 → Y3N 12:40
PROVIDERS: ADMIT Surgery; ATTEND Surgery
PROC: HZ2ZZZZ Detoxification Services for Substance Abuse Treatment (ICD-10-PCS; principal; 2018-07-30)
DX: F10.230 Alcohol dependence with withdrawal, uncomplicated (principal); F17.213 Nicotine dependence, cigarettes, with withdrawal; F19.24 Other psychoactive substance dependence with psychoactive substance-induced mood disorder; F31.31 Bipolar disorder, current episode depressed, mild; I10 Essential (primary) hypertension; J45.909 Unspecified asthma, uncomplicated; K21.9 Gastro-esophageal reflux disease without esophagitis; E11.8 Type 2 diabetes mellitus with unspecified complications; G47.00 Insomnia, unspecified; Z87.438 Personal history of other diseases of male genital organs; Z86.69 Personal history of other diseases of the nervous system and sense organs; Z86.74 Personal history of sudden cardiac arrest; Z79.4 Long term (current) use of insulin; Z91.19 Patient's noncompliance with other medical treatment and regimen
CPT/HCPCS: 36415; 80053; 85027; 86593

== ENCOUNTER 2018-09-16 08:33 | Inpatient (IN) | payer OTHER ==
[2018-09-16 08:56] VITALS: BMI 29.2
--- NOTE | 2018-09-16 09:37 | HP ---
"CIWA Score Nausea/Vomitin Muscle Tremors: 2 Anxiety: 4-Mod. Anxious/Guarded Agitation: 1-Slight > Activity Paroxysmal Sweats: 1-Minimal Palms Moist Orientation: 0-Oriented Tacttile Disturbances: 0-None Auditory Disturbances: 0-None Visual Disturbances: 0-None Headache: 2-Mild CIWA-Ar Total Score: 13 - Admission Criteria OASAS Guidelines: Admission for Medically Managed Detox: Requires at least one of the followin. CIWA greater than 12 2. Seizures within the past 24 hours 3. Delirium tremens within the past 24 hours 4. Hallucinations within the past 24 hours 5. Acute intervention needed for co occurring medical disorder 6. Acute intervention needed for co occurring psychiatric disorder 7. Severe withdrawal that cannot be handled at a lower level of care (continued vomiting, continued diarrhea, abnormal vital signs) requiring intravenous medication and/or fluids 8. Admission ROS [facility] Allergies/Adverse Reactions: Allergies Allergy/AdvReac Type Severity Reaction Status Date / Time No Known Allergies Allergy Verified 09/16/18 08:49 History of Present Illness: This report was requested by: Naomi Zaragoza | Reference #: [id number] Others' Prescriptions Patient Name: Sumanth Abdul Date: 1975 Address: [address] [place] [id number] Sex: Male Rx Written Rx Dispensed Drug Quantity Days Supply Prescriber Name 09/13/2018 09/13/2018 buprenorphine-naloxone 8-2 mg sl tablet 60 30 Brock Hernandez MD 08/12/2018 08/12/2018 buprenorphine-naloxone 8-2 mg sl tablet 60 30 Brock Hernandez MD 07/12/2018 07/12/2018 buprenorphine-naloxone 8-2 mg sl tablet 60 30 Brock Hernandez MD 06/15/2018 06/15/2018 buprenorphine-naloxone 8-2 mg sl tablet 60 30 Brock Hernandez MD 05/18/2018 05/18/2018 buprenorphine-naloxone 8-2 mg sl film 60 30 Brock Hernandez MD 04/12/2018 04/12/2018 buprenorphine-naloxone 8-2 mg sl film 60 30 Brock Hernandez MD Patient Name: Sumanth Abdul Date: 1975 Address: [address] [address] Sex: Male Rx Written Rx Dispensed Drug Quantity Days Supply Prescriber Name 03/23/2018 03/24/2018 buprenorphine-naloxone 8-2 mg sl film 30 15 Brock Hernandez MD 03/01/2018 03/04/2018 suboxone 8 mg-2 mg sl film 30 15 Brock Hernandez MD 02/17/2018 02/17/2018 suboxone 8 mg-2 mg sl film 30 15 Brock Hernandez MD patient here requesting detox from benzodiazepine use , 5 /day x 2 mg each , denies relapse on ETOH reports was unable to gain acceptance in [facility] 2/2 r leg injury and P surgical intervention , difficulty ambulating , reports progressive increase x 15 years , first age of use 6 , + w/d seizure most recently 1 months ago , + blackouts , + falls denies recent injuries , past etoh use drinking from early in the morning . prior detox x 8-9 , most recently at this facility , latest benzo use 3 days ago , came to this facility yesterday as there were no beds available , current symptoms as above . denies illicits tobacco : 4-5 cigs/day pmhx : htn, asthma ( hospitalized, intubated - most recently 1 yr ago ) . right leg Achilles tendon tear pshx : denies psych : depression , anxiety , bipolar d/o meds : depakote , gabapentin , celexa , abilify , trazodone , naproxen Exam Limitations: Clinical Condition - Ebola screening Have you traveled outside of the country in the last 21 days: No (N) Have you had contact with anyone from an Ebola affected area: No Do you have a fever: No - Review of Systems Constitutional: See HPI, Loss of Appetite EENT: reports: See HPI Respiratory: reports: No Symptoms reported Cardiac: reports: No Symptoms Reported GI: reports: See HPI : reports: No Symptoms Reported Musculoskeletal: reports: Joint Pain (r ankle) Integumentary: reports: Dryness Neuro: reports: Seizure, Unsteady Gait Endocrine: reports: No Symptoms Reported Psychiatric: reports: Orientated x3, Agitated, Anxious, Depressed Patient History - Patient Medical History Hx Anemia: No Hx Asthma: Yes (Albuterol) Hx Chronic Obstructive Pulmonary Disease (COPD): No Hx Cancer: No Hx Cardiac Disorders: Yes (cardiac arrest 6yrs ago) Hx Congestive Heart Failure: No Hx Hypertension: Yes (Norvasc) Hx Hypercholesterolemia: No Hx Pacemaker: No HX Cerebrovascular Accident: No Hx Seizures: Yes (LAST SEIZURE last 10/18- Neurotin) Hx Dementia: No Hx Diabetes: No Hx Gastrointestinal Disorders: No Hx Liver Disease: No Hx Genitourinary Disorders: No Hx Sexually Transmitted Disorders: Yes (gonorrhea) Hx Renal Disease (ESRD): No Hx Thyroid Disease: No Hx Human Immunodeficiency Virus (HIV): No (negative last 01/12 negative) Hx Hepatitis C: No Hx Depression: Yes (Celexa) Hx Suicide Attempt: No Hx Bipolar Disorder: Yes (abilify, depakote) Hx Schizophrenia: No - Patient Surgical History Past Surgical History: No Hx Neurologic Surgery: No Hx Cataract Extraction: No Hx Cardiac Surgery: No Hx Lung Surgery: No Hx Breast Surgery: No Hx Breast Biopsy: No Hx Abdominal Surgery: No Hx Appendectomy: No Hx Cholecystectomy: No Hx Genitourinary Surgery: No Hx Section: No Hx Orthopedic Surgery: Yes (lower back sx (fall)-lumber spine surgery 3yrs ago) Anesthesia Reaction: No - Smoking Cessation Smoking history: Current some day smoker Have you smoked in the past 12 months: Yes Aproximately how many cigarettes per day: 10 Cigars Per Day: 0 Hx Chewing Tobacco Use: No Initiated information on smoking cessation: No - Substances abused Alcohol Substance route: Oral Frequency: Daily Amount used: 4/5 pints Age of first use: 6 Date of last use: 09/14/18 Alprazolam (Xanax) Substance route: Oral Frequency: Daily Amount used: 12MG Age of first use: 28 Date of last use: 09/14/18 Other Other (specify): PERCOCET 5/325 Substance route: Oral Frequency: Daily Amount used: 4 Age of first use: 33 Date of last use: 09/12/18 Family Disease History - Family Disease History Family Disease History: CA: Mother (BREAST CANCER), Other: Grandparent (uncle prostate ca) Admission Physical Exam [facility] - Vital Signs Vital Signs: Vital Signs - 24 hr 09/16/18 09/16/18 08:46 09:07 Temperature 97.3 F L 97.3 F L Pulse Rate 81 81 Respiratory 18 18 Rate Blood Pressure 100/73 100/73 - Physical General Appearance: Yes: Disheveled, Moderate Distress, Irritable, Anxious HEENTM: Yes: EOMI, Hearing grossly Normal, Normocephalic, Normal Voice, Other ( edentulous) Respiratory: Yes: Chest Non-Tender, Lungs Clear, Normal Breath Sounds Neck: Yes: No masses,lesions,Nodules, Trachea in good position Cardiology: Yes: Regular Rhythm, Regular Rate, S1, S2, Tachycardia Abdominal: Yes: Non Tender, Soft Back: Yes: Normal Inspection Musculoskeletal: Yes: Other (limping R - chronic R Achilles tear) Extremities: Yes: Non-Tender, Pedal Edema (r ankle), Other (Left le excoriations x 2 above right ankle and pretibially) Neurological: Yes: Fully Oriented, Alert, Motor Strength 5/5, Depressed Affect Integumentary: Yes: Dry - Diagnostic (1) Opioid dependence on agonist therapy Current Visit: Yes Status: Acute (2) Nicotine dependence Current Visit: Yes Status: Chronic Qualifiers: Nicotine product type: cigarettes Comment: As per self-report. No toxicology. (3) Xanax use disorder, mild, abuse Current Visit: Yes Status: Acute (4) Sedative hypnotic or anxiolytic dependence Current Visit: Yes Status: Chronic Breathalyzer - Breathalyzer Breathalyzer: 0 Urine Drug Screen - Test Device Lot number: [id number] Expiration date: 05/27/20 - Control Is test valid?: Yes - Results Drug screen NEGATIVE: No Urine drug screen results: MET-Methamphetamine, BZO-Benzodiazepines, BUP- Suboxone Inpatient Rehab Admission - Rehab Decision to Admit Inpatient rehab admission?: No"
[2018-09-16] MEDS ORDERED: chlordiazePOXIDE HCL 25 MG CAPSULE PO PRN (10:09)
[2018-09-16] MEDS ORDERED: MENTHOL/PHENOL 1 EACH UD MM PRN (10:09)
[2018-09-16] MEDS ORDERED: MAG HYDROX/AL HYDROX/SIMETH 30 ML UNIT-DOSE CUP PO PRN (10:09)
[2018-09-16] MEDS ORDERED: BISMUTH SUBSALICYLATE 262 MG/15 ML BTL PO PRN (10:09)
[2018-09-16] MEDS ORDERED: MAGNESIUM CITRATE 300 ML BOTTLE PO PRN (10:09)
[2018-09-16] MEDS ORDERED: MAGNESIUM HYDROX 2400MG/30ML ORAL SUSPENSION 30 ML CUP PO PRN (10:09)
[2018-09-16] MEDS ORDERED: hydrOXYzine PAMOATE 25 MG CAPSULE (FP) PO PRN (10:09)
[2018-09-16] MEDS ORDERED: MELATONIN 5 MG TABLETS PO PRN (10:09)
[2018-09-16] MEDS ORDERED: ACETAMINOPHEN 325 MG TABLET (FP) PO PRN ×2 (10:09)
[2018-09-16] MEDS ORDERED: IBUPROFEN 400 MG TABLET (FP) PO PRN (10:09)
[2018-09-16] MEDS ORDERED: NICOTINE POLACRILEX 2 MG GUM BUC PRN (10:09)
[2018-09-16] MEDS ORDERED: ALBUTEROL SO4 0.083% IH SOL 2.5 MG/3 ML VIAL.NEB. NEB PRN (10:12)
[2018-09-16] MEDS: chlordiazePOXIDE HCL 25 MG CAPSULE PO SCH ×3 (11:47→22:23)
[2018-09-16] MEDS: THIAMINE HCL 100 MG TABLET (FP) PO SCH (22:23)
[2018-09-17] MEDS: chlordiazePOXIDE HCL 25 MG CAPSULE PO SCH ×4 (06:13→22:02)
[2018-09-17 10:18] LABS: HEMATOCRIT 43.5 % (35.4-49); HEMOGLOBIN 14.5 GM/dL (11.7-16.9); MCH 30.9 pg (25.7-33.7); MCHC 33.3 g/dl (32.0-35.9); MEAN CELL VOLUME 92.9 fl (80-96); MEAN PLT VOLUME 8.2 fl (7.5-11.1); PLATELET COUNT 209 K/MM3 (134-434); RBC 4.69 M/mm3 (4.00-5.60); RDW 13.5 % (11.9-15.9); WHITE BLOOD COUNT 5.1 K/mm3 (4.0-10.0)
[2018-09-17 10:20] LABS: ALBUMIN 3.4 g/dl (3.4-5.0); BILIRUBIN,TOTAL 0.4 mg/dL (0.2-1); CREATININE 0.9 mg/dL (0.55-1.3); TOT PROT 6.8 g/dl (6.4-8.2)
[2018-09-17] MEDS: PRENATAL VITAMINS W/ FOLIC ACID TABLET (FP) PO SCH (11:03)
[2018-09-17] MEDS: amLODIPine BESYLATE 10 MG TABLET (FP) PO SCH (11:03)
[2018-09-17] MEDS: BUPRENORPHINE/NALOXONE 8 MG/2 MG FILM PACKET SL SCH (11:04)
--- NOTE | 2018-09-17 11:57 | CONSULT ---
[facility] Psychiatric Consult - Data Date of interview: 09/17/18 Admission source: [facility] Identifying data: Patient is a 42 year old single male, without children, unemployed, homeless, and denies financial assistance. This is one of multiple admissions for patient. Patient admitted to for alcohol and benzodiazepine dependence. Substance Abuse History: - Smoking Cessation. Smoking history: Current some day smoker. Have you smoked in the past 12 months: Yes. Aproximately how many cigarettes per day: 10. Cigars Per Day: 0. Hx Chewing Tobacco Use: No. Initiated information on smoking cessation: No. - Substances abused. Alcohol. Substance route: Oral. Frequency: Daily. Amount used: 4/5 pints. Age of first use: 6. Date of last use: 09/14/18. Alprazolam (Xanax). Substance route: Oral. Frequency: Daily. Amount used: 12MG. Age of first use : 28. Date of last use: 09/14/18. Other. Other (specify): PERCOCET 5/325. Substance route: Oral. Frequency: Daily. Amount used: 4. Age of first use: 33. Date of last use: 09/12/18 Medical History: Remarkable for a history of cardiac arrest (seven years ago as per self-report), hypertension, GERD, bronchial asthma, antecedent of withdrawal -related seizures, past fracture of right leg [place]), history of treatment for gonorrhea, chronic lumbar pain ( spinal surgery) and past prophylactic treatment (truvada) due to intercourse with a known HIV positive partner. Psychiatric History: Patient reports h/o psychiatric hospitalizations most recently last month at [facility] for depression, anxiety and medication noncompliance. Patient is also known to [facility], [facility], and [facility] in the State of [place]. Mr. Abdul was diagnosed with Bipolar disorder at approximately 22-23 years of age while living in [place], [place]. He reports being tried on Celexa, abilify, depakote, gabapentin, lithium, Valium , and additional psychotropic medications. Patient denies current outpatient psychiatric care. Patient recently discharged in June 2018 from [facility] psychiatric unit with prescription of Gabapentin 300mg TID, Abilify 30mg + Celexa 10mg + Depakote 500mg BID ( but was discontinued due to elevated liver enzymes). Patient reports being off his medications for approximately 1-2 weeks. At present he reports feeling depressed but is agreeable to resuming his medications. Physical/Sexual Abuse/Trauma History: denies. Mental Status Exam - Mental Status Exam Alert and Oriented to: Time, Place, Person Cognitive Function: Good Patient Appearance: Well Groomed Mood: Euthymic Affect: Appropriate Patient Behavior: Cooperative Speech Pattern: Appropriate Voice Loudness: Normal Thought Process: Intact, Goal Oriented Thought Disorder: Not Present Hallucinations: Denies Suicidal Ideation: Denies Homicidal Ideation: Denies Insight/Judgement: Poor Sleep: Poorly Appetite: Fair Muscle strength/Tone: Normal Gait/Station: Other (Patient ambulates with a cane.) Psychiatric Findings - Problem List ([place] 1, 2,3) (1) Opioid dependence on agonist therapy Current Visit: Yes Status: Acute (2) Xanax use disorder, mild, abuse Current Visit: Yes Status: Acute (3) Nicotine dependence Current Visit: Yes Status: Chronic Qualifiers: Nicotine product type: cigarettes Comment: As per self-report. No toxicology. (4) Sedative hypnotic or anxiolytic dependence Current Visit: Yes Status: Chronic (5) Bipolar disorder Current Visit: Yes Status: Chronic Qualifiers: Active/Remission status: currently active Current bipolar episode type: depressed Current episode severity: mild Qualified Code(s): F31.31 - Bipolar disorder, current episode depressed, mild Comment: According to records + self-report. Non adherent to OPD care for months. (6) Substance induced mood disorder Current Visit: Yes Status: Acute - Initial Treatment Plan Initial Treatment Plan: Psychoeducation provided. Detoxification in progress. Will order abilify 15mg daily + gabapentin 300mg TID + Celexa 10mg daily. Benefits and side effects discussed. Verbal consent given.
[2018-09-17] MEDS ORDERED: ALBUTEROL SO4 8 GM HFA INHALER IH PRN (13:44)
--- NOTE | 2018-09-17 13:47 | PN ---
S CIWA - CIWA Score Nausea/Vomitin-No Nausea/No Vomiting Muscle Tremors: 3 Anxiety: 3 Agitation: 3 Paroxysmal Sweats: 3 Orientation: 0-Oriented Tacttile Disturbances: 0-None Auditory Disturbances: 0-None Visual Disturbances: 0-None Headache: 0-None Present CIWA-Ar Total Score: 12 S Progress Note (SOAP) Subjective: sweats shakes interrupted sleep chills Objective: 09/17/18 13:46 Vital Signs Temperature 97.9 F 09/17/18 09:40 Pulse Rate 75 09/17/18 09:40 Respiratory Rate 18 09/17/18 09:40 Blood Pressure 112/72 09/17/18 09:40 O2 Sat by Pulse Oximetry (%) Laboratory Tests 09/17/18 09/17/18 07:40 07:40 WBC 5.1 RBC 4.69 Hgb 14.5 Hct 43.5 MCV 92.9 D MCH 30.9 MCHC 33.3 RDW 13.5 Plt Count 209 MPV 8.2 Sodium 137 Potassium 4.0 Chloride 102 Carbon Dioxide 30 Anion Gap 5 L BUN 12 Creatinine 0.9 Est GFR (CKD-EPI)AfAm 119.97 Est GFR (CKD-EPI)NonAf 103.51 Random Glucose 82 Calcium 8.0 L Total Bilirubin 0.4 AST 31 ALT 34 Alkaline Phosphatase 84 Total Protein 6.8 Albumin 3.4 labs noted aaox3 ambulating no acute distress Assessment: 09/17/18 13:46 withdrawal sx Plan: continue detox increase fluids librium prn
[2018-09-17] MEDS: GABAPENTIN 300 MG CAPSULE (FP) PO SCH ×2 (14:21→22:02)
[2018-09-17] MEDS: THIAMINE HCL 100 MG TABLET (FP) PO SCH (22:02)
[2018-09-18] MEDS: chlordiazePOXIDE HCL 25 MG CAPSULE PO SCH (05:54)
[2018-09-18] MEDS: GABAPENTIN 300 MG CAPSULE (FP) PO SCH ×2 (05:54→13:54)
[2018-09-18] MEDS ORDERED: ARIPiprazole 15 MG TABLET PO SCH (10:00)
[2018-09-18] MEDS ORDERED: CITALOPRAM HYDROBROMIDE 10 MG TABLET (FP) PO SCH (10:00)
--- NOTE | 2018-09-18 10:17 | PN ---
S CIWA - CIWA Score Nausea/Vomitin-No Nausea/No Vomiting Muscle Tremors: 3 Anxiety: 2 Agitation: 0-Normal Activity Paroxysmal Sweats: 3 Orientation: 0-Oriented Tacttile Disturbances: 0-None Auditory Disturbances: 0-None Visual Disturbances: 0-None Headache: 2-Mild CIWA-Ar Total Score: 10 S Progress Note (SOAP) Subjective: c/o sweats, headache, irritability, and shakes. Objective: 09/18/18 10:11 Vital Signs 09/18/18 09/18/18 03:30 08:14 Temperature 98.2 F Pulse Rate 77 Respiratory 18 18 Rate Blood Pressure 107/58 L Lab Results WBC 5.1 K/mm3 (4.0-10.0) 09/17/18 07:40 RBC 4.69 M/mm3 (4.00-5.60) 09/17/18 07:40 Hgb 14.5 GM/dL (11.7-16.9) 09/17/18 07:40 Hct 43.5 % (35.4-49) 09/17/18 07:40 MCV 92.9 fl (80-96) D 09/17/18 07:40 MCHC 33.3 g/dl (32.0-35.9) 09/17/18 07:40 RDW 13.5 % (11.9-15.9) 09/17/18 07:40 Plt Count 209 K/MM3 (134-434) 09/17/18 07:40 Sodium 137 mmol/L (136-145) 09/17/18 07:40 Potassium 4.0 mmol/L (3.5-5.1) 09/17/18 07:40 Chloride 102 mmol/L (98-107) 09/17/18 07:40 Carbon Dioxide 30 mmol/L (21-32) 09/17/18 07:40 Anion Gap 5 MMOL/L (8-16) L 09/17/18 07:40 BUN 12 mg/dL (7-18) 09/17/18 07:40 Creatinine 0.9 mg/dL (0.55-1.3) 09/17/18 07:40 Random Glucose 82 mg/dL (74-106) 09/17/18 07:40 Calcium 8.0 mg/dL (8.5-10.1) L 09/17/18 07:40 Labs noted. Assessment: 09/18/18 10:11 AOX3, in no respiratory distress full rom, ambulating withdrawal symptoms Plan: continue detox increase fluids
[2018-09-18] MEDS ORDERED: chlordiazePOXIDE HCL 10 MG CAPSULE PO SCH (11:00)
[2018-09-18] MEDS ORDERED: chlordiazePOXIDE HCL 10 MG CAPSULE PO PRN (11:00)
[2018-09-18] MEDS: BUPRENORPHINE/NALOXONE 8 MG/2 MG FILM PACKET SL SCH (11:22)
[2018-09-18] MEDS: amLODIPine BESYLATE 10 MG TABLET (FP) PO SCH (11:23)
[2018-09-18] MEDS: PRENATAL VITAMINS W/ FOLIC ACID TABLET (FP) PO SCH (11:23)
[2018-09-18 13:43] VITALS: BP 101/67; PULSE 75; TEMP 98.1
--- NOTE | 2018-09-18 14:33 | DS ---
[facility] Detox Discharge Summary Admission Date: 09/16/18 Discharge Date: 09/18/18 (Discharged AMA) - History Present History: Sedative Dependence Additional Comments: Pt left AMA. Pt did not complete detox protocol. Pt states he wants to go and see his mother that he has not seen for over 10years. Attempt to let pt stay and continue with the detox protocol failed. Pt states he will follow up with an outpatient or rehab CD program. Pt is alert and oriented x3 and in no respiratory distress. Pt is encouraged to follow-up with an outpatient CD program and also follow-up with his PMD. Pt verbalized understanding. Pertinent Past History: H/O asthma, HTN, seizures, and benzo's abuse. - Physical Exam Results Vital Signs: Vital Signs Temperature 98.1 F 09/18/18 13:42 Pulse Rate 75 09/18/18 13:42 Respiratory Rate 18 09/18/18 13:42 Blood Pressure 101/67 09/18/18 13:42 O2 Sat by Pulse Oximetry (%) Vital Signs - 24 hr 09/17/18 09/17/18 09/18/18 17:38 21:00 03:30 Temperature 98.2 F 98.2 F Pulse Rate 84 81 Respiratory 20 16 18 Rate Blood Pressure 110/63 108/65 09/18/18 09/18/18 09/18/18 08:14 11:11 13:42 Temperature 98.2 F 98.2 F 98.1 F Pulse Rate 77 87 75 Respiratory 18 18 18 Rate Blood Pressure 107/58 L 110/51 L 101/67 Laboratory Last Values WBC 5.1 K/mm3 (4.0-10.0) 09/17/18 07:40 RBC 4.69 M/mm3 (4.00-5.60) 09/17/18 07:40 Hgb 14.5 GM/dL (11.7-16.9) 09/17/18 07:40 Hct 43.5 % (35.4-49) 09/17/18 07:40 MCV 92.9 fl (80-96) D 09/17/18 07:40 MCH 30.9 pg (25.7-33.7) 09/17/18 07:40 MCHC 33.3 g/dl (32.0-35.9) 09/17/18 07:40 RDW 13.5 % (11.9-15.9) 09/17/18 07:40 Plt Count 209 K/MM3 (134-434) 09/17/18 07:40 MPV 8.2 fl (7.5-11.1) 09/17/18 07:40 Sodium 137 mmol/L (136-145) 09/17/18 07:40 Potassium 4.0 mmol/L (3.5-5.1) 09/17/18 07:40 Chloride 102 mmol/L (98-107) 09/17/18 07:40 Carbon Dioxide 30 mmol/L (21-32) 09/17/18 07:40 Anion Gap 5 MMOL/L (8-16) L 09/17/18 07:40 BUN 12 mg/dL (7-18) 09/17/18 07:40 Creatinine 0.9 mg/dL (0.55-1.3) 09/17/18 07:40 Est GFR (CKD-EPI)AfAm 119.97 09/17/18 07:40 Est GFR (CKD-EPI)NonAf 103.51 09/17/18 07:40 Random Glucose 82 mg/dL (74-106) 09/17/18 07:40 Calcium 8.0 mg/dL (8.5-10.1) L 09/17/18 07:40 Total Bilirubin 0.4 mg/dL (0.2-1) 09/17/18 07:40 AST 31 U/L (15-37) 09/17/18 07:40 ALT 34 U/L (13-61) 09/17/18 07:40 Alkaline Phosphatase 84 U/L (45-117) 09/17/18 07:40 Total Protein 6.8 g/dl (6.4-8.2) 09/17/18 07:40 Albumin 3.4 g/dl (3.4-5.0) 09/17/18 07:40 RPR Titer Nonreactive (NONREACTIVE) 09/17/18 07:40 HIV 1&2 Antibody Screen Negative 09/17/18 07:40 HIV P24 Antigen Negative 09/17/18 07:40 Labs noted. Pertinent Admission Physical Exam Findings: withdrawal symptoms. - Treatment Hospital Course: Detox Protocol Followed - Medication Discharge Medications: Ambulatory Orders Aripiprazole [Abilify -] 30 mg PO DAILY 01/21/18 Albuterol Sulfate Inhaler - [Ventolin HFA Inhaler -] 2 puff IH Q4H PRN #1 inhaler 08/02/18 Gabapentin [Neurontin -] 300 mg PO TID #60 capsule 08/02/18 Amlodipine Besylate [Norvasc -] 10 mg PO DAILY 09/15/18 Citalopram Hydrobromide [Celexa -] 10 mg PO DAILY 09/15/18 - Diagnosis (1) Opioid dependence on agonist therapy Current Visit: Yes Status: Acute (2) Nicotine dependence Current Visit: Yes Status: Chronic Qualifiers: Nicotine product type: cigarettes (3) Alcohol dependence with withdrawal, uncomplicated Current Visit: No Status: Acute (4) Amphetamine abuse Current Visit: No Status: Acute (5) Alcohol dependence Current Visit: No Status: Chronic (6) Asthma Current Visit: No Status: Chronic (7) DM2 (diabetes mellitus, type 2) Current Visit: No Status: Chronic Qualifiers: Diabetes mellitus penitentiary insulin use: unspecified ocean transportation intermediary insulin use status Diabetes mellitus complication status: with unspecified complications Qualified Code(s): E11.8 - Type 2 diabetes mellitus with unspecified complications (8) Essential hypertension Current Visit: No Status: Chronic (9) GERD (gastroesophageal reflux disease) Current Visit: No Status: Chronic Qualifiers: Esophagitis presence: without esophagitis (10) Opioid dependence Current Visit: No Status: Chronic (11) Seizure disorder Current Visit: No Status: Chronic - AMA Did Patient Leave Against Medical Advice: Yes
[2018-09-19] MEDS ORDERED: chlordiazePOXIDE HCL 10 MG CAPSULE PO SCH (11:00)
== END 2018-09-18 14:10 | disposition left against medical advice (07) | DRG 770 ==
LOC: YASAS 08:33 → Y6N 10:29
PROVIDERS: ADMIT Surgery; ATTEND Surgery
PROC: HZ2ZZZZ Detoxification Services for Substance Abuse Treatment (ICD-10-PCS; principal; 2018-09-16)
DX: F11.23 Opioid dependence with withdrawal (principal); F10.230 Alcohol dependence with withdrawal, uncomplicated; F15.10 Other stimulant abuse, uncomplicated; F17.210 Nicotine dependence, cigarettes, uncomplicated; F31.31 Bipolar disorder, current episode depressed, mild; I10 Essential (primary) hypertension; J45.909 Unspecified asthma, uncomplicated; E11.8 Type 2 diabetes mellitus with unspecified complications; G40.909 Epilepsy, unspecified, not intractable, without status epilepticus; K21.9 Gastro-esophageal reflux disease without esophagitis; R00.0 Tachycardia, unspecified; Z86.74 Personal history of sudden cardiac arrest
CPT/HCPCS: 36415; 80053; 85027; 86593; 87389

== ENCOUNTER 2019-01-06 12:07 | Inpatient (IN) | payer OTHER ==
[2019-01-06 14:11] VITALS: BMI 25.7
--- NOTE | 2019-01-06 14:48 | HP ---
CIWA Score Nausea/Vomitin-No Nausea/No Vomiting Muscle Tremors: 3 Anxiety: 3 Agitation: 2 Paroxysmal Sweats: No Perspiration Orientation: 2-Disoriented Date<2 days Tacttile Disturbances: 1-Very Mild Itch/Numbness Auditory Disturbances: 0-None Visual Disturbances: 0-None Headache: 1-Very Mild CIWA-Ar Total Score: 12 - Admission Criteria OASAS Guidelines: Admission for Medically Managed Detox: Requires at least one of the followin. CIWA greater than 12 2. Seizures within the past 24 hours 3. Delirium tremens within the past 24 hours 4. Hallucinations within the past 24 hours 5. Acute intervention needed for co occurring medical disorder 6. Acute intervention needed for co occurring psychiatric disorder 7. Severe withdrawal that cannot be handled at a lower level of care (continued vomiting, continued diarrhea, abnormal vital signs) requiring intravenous medication and/or fluids 8. Admission ROS [facility] Chief Complaint: benzo detox Allergies/Adverse Reactions: Allergies Allergy/AdvReac Type Severity Reaction Status Date / Time No Known Allergies Allergy Verified 01/06/19 14:02 History of Present Illness: patient is a 43 yo M with a PMHx, of HTN, asthma, COPD, presenting here for benzo detox. Says he takes 7-8 pills (10mg) of xanax, and 7-8 (2mg) pills of klonipin daily, depending on how much money he has. Has been doing benzos for 5 years. Has been drinks 5-6 pints of vodka daily but has decreased alcohol since starting benzo. Has a hx of seizures, multiple intubations in the past. Last seizure 1 week ago, last intubated 6 months ago. Was on suboxone for heroin use. but has not picked up suboxone in months. denies heroin use. Went to [facility] this week for detox and penile lesions and was found to have reactive RPR. Was given emperic treatment for chlamydia/gonorrhea and was given 1 dose of Bicillin for syphilis. Patient was due to receive 2 more doses of bicilin but left AMA. Patient also was given bactrim and was supposed to continue for 7 days. Otherwise, lab work at [facility] were unremarkable. Smokes 1 PPD cigarettes. Homeless. Unemployed. Exam Limitations: No Limitations - Ebola screening Have you traveled outside of the country in the last 21 days: No Have you had contact with anyone from an Ebola affected area: No Do you have a fever: No - Review of Systems Constitutional: Loss of Appetite, Unintentional Wgt. Loss Respiratory: denies: Cough, Shortness of Breath Cardiac: denies: Chest Pain, Palpitations Patient History - Patient Medical History Hx Anemia: No Hx Asthma: Yes (Albuterol) Hx Chronic Obstructive Pulmonary Disease (COPD): No Hx Cancer: No Hx Cardiac Disorders: Yes (cardiac arrest 6yrs ago) Hx Congestive Heart Failure: No Hx Hypertension: Yes (Norvasc) Hx Hypercholesterolemia: No Hx Pacemaker: No HX Cerebrovascular Accident: No Hx Seizures: Yes (last seizure 5 days ago at [place]) Hx Dementia: No Hx Diabetes: No Hx Gastrointestinal Disorders: No Hx Liver Disease: No Hx Genitourinary Disorders: No Hx Sexually Transmitted Disorders: No Hx Renal Disease (ESRD): No Hx Thyroid Disease: No Hx Human Immunodeficiency Virus (HIV): No (negative last 01/12 negative) Hx Hepatitis C: No Hx Depression: Yes (Celexa) Hx Suicide Attempt: No Hx Bipolar Disorder: Yes (abilijohnny knight) Hx Schizophrenia: No - Patient Surgical History Past Surgical History: No Hx Neurologic Surgery: No Hx Cataract Extraction: No Hx Cardiac Surgery: No Hx Lung Surgery: No Hx Breast Surgery: No Hx Breast Biopsy: No Hx Abdominal Surgery: No Hx Appendectomy: No Hx Cholecystectomy: No Hx Genitourinary Surgery: No Hx Section: No Hx Orthopedic Surgery: Yes (lower back sx (fall)-lumber spine surgery 3yrs ago) Anesthesia Reaction: No - Smoking Cessation Smoking history: Current some day smoker Have you smoked in the past 12 months: Yes Aproximately how many cigarettes per day: 10 Cigars Per Day: 0 Hx Chewing Tobacco Use: No Initiated information on smoking cessation: Yes 'Breaking Loose' booklet given: 01/06/19 - Substances abused Alcohol Substance route: Oral Frequency: Daily Amount used: 3 pints Age of first use: 6 Date of last use: 01/05/19 Alprazolam (Xanax) Other (specify): 10mg Substance route: Oral Frequency: Daily Amount used: 6 tabs Age of first use: 28 Date of last use: 01/06/19 Other Other (specify): PERCOCET 5/325 Substance route: Oral Frequency: Daily Amount used: 4 Age of first use: 33 Date of last use: 09/12/18 Methamphetamine Substance route: Smoking Frequency: Daily Amount used: $100 worth Age of first use: 38 Date of last use: 11/07/18 Benzodiazepine (Klonopin) Other (specify): 2mg Substance route: Oral Frequency: Daily Amount used: 8 tabs Age of first use: 38 Date of last use: 01/06/19 Family Disease History - Family Disease History Family Disease History: CA: Mother (BREAST CANCER), Other: Grandparent (uncle prostate ca) Admission Physical Exam S - Vital Signs Vital Signs: Vital Signs - 24 hr 01/06/19 14:03 Temperature 97.3 F L Pulse Rate 85 Respiratory 18 Rate Blood Pressure 124/80 - Physical General Appearance: Yes: No Apparent Distress Respiratory: Yes: No Respiratory Distress, No Accessory Muscle Use Cardiology: Yes: Regular Rhythm, Regular Rate Abdominal: Yes: Non Tender, Soft Extremities: No: Tremors Lymphatic: Yes: Adenopathy (b/l iguinal) - Diagnostic (1) Alcohol dependence with withdrawal, uncomplicated Current Visit: No Status: Acute (2) Alcohol intoxication Current Visit: No Status: Acute (3) Nicotine dependence Current Visit: No Status: Acute Qualifiers: Nicotine product type: cigarettes Substance use status: in withdrawal Qualified Code(s): F17.213 - Nicotine dependence, cigarettes, with withdrawal (4) Anxiety and depression Current Visit: No Status: Chronic (5) Asthma Current Visit: No Status: Chronic (6) Bipolar disorder Current Visit: No Status: Chronic Qualifiers: Active/Remission status: currently active Current bipolar episode type: depressed Current episode severity: mild Qualified Code(s): F31.31 - Bipolar disorder, current episode depressed, mild Comment: According to records + self-report. Non adherent to OPD care for months. (7) Essential hypertension Current Visit: No Status: Chronic (8) Seizure Current Visit: No Status: Inactive Breathalyzer - Breathalyzer Breathalyzer: 0 Urine Drug Screen - Test Device Lot number: [id number] Expiration date: 08/24/20 - Control Is test valid?: Yes - Results Drug screen NEGATIVE: No Urine drug screen results: MET-Methamphetamine Inpatient Rehab Admission - Rehab Decision to Admit Inpatient rehab admission?: No
--- NOTE | 2019-01-06 15:03 | PN ---
"Teaching Attending Note Name of Resident: Sudheer Ritchie ATTENDING PHYSICIAN STATEMENT I saw and evaluated the patient. I reviewed the resident's note and discussed the case with the resident. I agree with the resident's findings and plan as documented. SUBJECTIVE: 43 y.o. male w/ etoh dependence , several prior admissions at this facility , reports xanax 10 mg/day , etoh 5 pints/vodka /day decreased intake since most recent admission @ [facility] 12/30/18 - d/c administratively 12/31/18 2/2 behavior , reports relapse immediately after d/ c . Medical records reviewed , of note pt was treated empirically for GC , RPR 1:64 given Bicillin IM x once w/ instructions for 2 more doses and Bactrim bid x 7 days , HIV NEGATIVE 12/30/18 PER MR . PMHx: HTN, asthma, COPD, WITHDRAWAL SEIZURES W/ INTUBATIONS , SEEN @ [facility] for detox and penile lesions , bactrim bid x 7 d and f/up w/ [facility] . tobacco : 1 PPD . Homeless. Unemployed. OBJECTIVE: This report was requested by: Naomi Zaragoza | Reference #: [id number] Others' Prescriptions Patient Name: Sumanth Abdul Date: 1975 Address: [address] [place] [address] Sex: Male Rx Written Rx Dispensed Drug Quantity Days Supply Prescriber Name 11/30/2018 12/06/2018 buprenorphine-naloxone 8-2 mg sl tablet 10 5 Brock Hernandez MD 11/26/2018 11/26/2018 buprenorphine-naloxone 8-2 mg sl tablet 20 10 Brock Hernandez MD 11/12/2018 11/12/2018 buprenorphine-naloxone 8-2 mg sl tablet 30 15 Brock Hernandez MD 10/13/2018 10/13/2018 buprenorphine-naloxone 8-2 mg sl tablet 60 30 Brock Hernandez MD 09/13/2018 09/13/2018 buprenorphine-naloxone 8-2 mg sl tablet 60 30 Brock Hernandez MD 08/12/2018 08/12/2018 buprenorphine-naloxone 8-2 mg sl tablet 60 30 Brock Hernandez MD 07/12/2018 07/12/2018 buprenorphine-naloxone 8-2 mg sl tablet 60 30 Brock Hernandez MD 06/15/2018 06/15/2018 buprenorphine-naloxone 8-2 mg sl tablet 60 30 Brock Hernandez MD 05/18/2018 05/18/2018 buprenorphine-naloxone 8-2 mg sl film 60 30 Brock Hernandez MD 04/12/2018 04/12/2018 buprenorphine-naloxone 8-2 mg sl film 60 30 Brock Hernandez MD Patient Name: Sumanth Abdul Date: 1975 Address: [address] [place] [address] Sex: Male Rx Written Rx Dispensed Drug Quantity Days Supply Prescriber Name 03/23/2018 03/24/2018 buprenorphine-naloxone 8-2 mg sl film 30 15 Brock Hernandez MD 03/01/2018 03/04/2018 suboxone 8 mg-2 mg sl film 30 15 Brock Hernandez MD 02/17/2018 02/17/2018 suboxone 8 mg-2 mg sl film 30 15 Brock Hernandez MD Vital Signs - 24 hr 01/06/19 14:03 Temperature 97.3 F L Pulse Rate 85 Respiratory 18 Rate Blood Pressure 124/80 ASSESSMENT AND PLAN: SEDATIVE DEPENDENCE / ALCOHOL DEPENDENCE - LIBRIUM TAPER RESUME PENICILLIN I..M. X 2 DOSES , BACTRIM X 7 DAYS . D/W PT AT LENGTH IMPORTANCE OF TX , VERBALIZES UNDERSTANDING AND AGREEMENT"
[2019-01-06] MEDS ORDERED: ACETAMINOPHEN 325 MG TABLET (FP) PO PRN ×2 (17:07)
[2019-01-06] MEDS ORDERED: MAGNESIUM CITRATE 300 ML BOTTLE PO PRN (17:07)
[2019-01-06] MEDS ORDERED: BISMUTH SUBSALICYLATE 524 MG/30 ML UD PO PRN (17:07)
[2019-01-06] MEDS ORDERED: MAGNESIUM HYDROX 2400MG/30ML ORAL SUSPENSION 30 ML CUP PO PRN (17:07)
[2019-01-06] MEDS ORDERED: hydrOXYzine PAMOATE 25 MG CAPSULE (FP) PO PRN (17:07)
[2019-01-06] MEDS ORDERED: MAG HYDROX/AL HYDROX/SIMETH 30 ML UNIT-DOSE CUP PO PRN (17:07)
[2019-01-06] MEDS ORDERED: MENTHOL/PHENOL 1 EACH UD MM PRN (17:07)
[2019-01-06] MEDS ORDERED: ALBUTEROL SO4 8 GM HFA INHALER IH PRN (17:18)
[2019-01-06] MEDS ORDERED: PENICILLIN G BENZATHINE 2,400,000 UNIT/4 ML PFS IM SCH (18:00)
[2019-01-06] MEDS: chlordiazePOXIDE HCL 25 MG CAPSULE PO PRN (18:08)
[2019-01-06] MEDS: IBUPROFEN 400 MG TABLET (FP) PO PRN (18:11)
[2019-01-06] MEDS: chlordiazePOXIDE HCL 25 MG CAPSULE PO SCH (22:05)
[2019-01-06] MEDS: MELATONIN 5 MG TABLETS PO PRN (22:05)
[2019-01-06] MEDS: THIAMINE HCL 100 MG TABLET (FP) PO SCH (22:05)
[2019-01-06] MEDS: SULFAMETHOXAZOLE/TRIMETHOPRIM 800MG/160MG D.S. TABLET PO SCH (22:05)
[2019-01-06] MEDS: METHOCARBAMOL 500 MG TABLET PO PRN (22:06)
[2019-01-07] MEDS: IBUPROFEN 400 MG TABLET (FP) PO PRN ×2 (03:50→18:49)
[2019-01-07] MEDS: chlordiazePOXIDE HCL 25 MG CAPSULE PO SCH ×4 (05:45→22:18)
[2019-01-07] MEDS: PRENATAL VITAMINS W/ FOLIC ACID TABLET (FP) PO SCH (10:52)
[2019-01-07] MEDS: SULFAMETHOXAZOLE/TRIMETHOPRIM 800MG/160MG D.S. TABLET PO SCH ×2 (10:52→22:18)
--- NOTE | 2019-01-07 12:45 | CONSULT ---
[facility] Psychiatric Consult - Data Date of interview: 01/07/19 Admission source: [facility] Identifying data: Readmission to [facility] for this 43 y/o [place]-born male, self-referred for detoxification treatment (alcohol + opioid + benzodiazepine). Seen at [address] [place] [address]. Patient is single without children, homeless, unemployed and reportedly deprived of financial assistance. Substance Abuse History: Discussed in this session. Details in current [facility] report as follows : Smoking history: Current some day smoker. Have you smoked in the past 12 months: Yes. Aproximately how many cigarettes per day: 10. Cigars Per Day: 0. Hx Chewing Tobacco Use: No. Initiated information on smoking cessation: Yes. 'Breaking Loose' booklet given: 01/06/19. - Substances abused. Alcohol. Substance route: Oral. Frequency: Daily. Amount used: 3 pints. Age of first use: 6. Date of last use: 01/05/19. Alprazolam (Xanax). Other (specify): 10mg. Substance route: Oral. Frequency: Daily. Amount used: 6 tabs. Age of first use: 28. Date of last use: . Other. Other (specify): PERCOCET 5/325. Substance route: Oral. Frequency: Daily. Amount used: 4. Age of first use: 33. Date of last use: . Methamphetamine. Substance route: Smoking. Frequency: Daily. Amount used: $100 worth. Age of first use: 38. Date of last use: 11/07/18. * * Benzodiazepine (Klonopin). Other (specify): 2mg. Substance route: Oral. Frequency: Daily. Amount used: 8 tabs. Age of first use: 38. Date of last use : 01/06/19 Medical History: No change since encounter of 07/2018 except for recent diagnosis of syphilis. Profile is remarkable for a history of cardiac arrest ( seven years ago as per self-report), hypertension, GERD, bronchial asthma, antecedent of withdrawal-related seizures, past fracture of right leg ( [place]), history of treatment for gonorrhea, chronic lumbar pain (spinal surgery) and past prophylactic treatment (truvada) due to intercourse with a known HIV positive partner. No reported allergies. Psychiatric History: History of multiple psychiatric hospitalizations. Diagnosed , at age 17-18, with Bipolar Disorder. Mr Franko is known to [facility], [facility], [facility], [facility], [facility], [facility]. Patient has received trials of various medications which include gabapentin, valproate, celexa, abilify and olanzapine. Chronically non-adherent to psychiatric aftercare. Sees Dr Hernandez at [facility] for medication management : citalopram, depakote, gabapentin, olanzapine , aripriprazole). History of two suicide attempts via overdoses with medications (3 years ago). Physical/Sexual Abuse/Trauma History: Patient declines to discuss that domain. Additional Comment: Urine drug screen results: MET-Methamphetamine. Noted. Mental Status Exam - Mental Status Exam Alert and Oriented to: Time, Place, Person Cognitive Function: Grossly Intact Patient Appearance: Unkempt, Disheveled Mood: Nervous, Withdrawn, Apprehensive Affect: Mood Congruent, Constricted Patient Behavior: Fatigued, Cooperative Speech Pattern: Clear Voice Loudness: Normal Thought Process: Goal Oriented Thought Disorder: Not Present Hallucinations: Denies Suicidal Ideation: Denies Homicidal Ideation: Denies Insight/Judgement: Poor Sleep: Poorly, Difficulty falling asleep Appetite: Good Muscle strength/Tone: Normal Gait/Station: Normal Psychiatric Findings - Problem List ([place] 1, 2,3) (1) Alcohol dependence with withdrawal, uncomplicated Current Visit: Yes Status: Acute (2) Opioid dependence Current Visit: Yes Status: Chronic (3) Sedative hypnotic or anxiolytic dependence Current Visit: Yes Status: Chronic (4) Amphetamine abuse Current Visit: Yes Status: Chronic (5) Nicotine dependence Current Visit: Yes Status: Chronic Qualifiers: Nicotine product type: cigarettes Substance use status: in withdrawal Qualified Code(s): F17.213 - Nicotine dependence, cigarettes, with withdrawal (6) Substance induced mood disorder Current Visit: Yes Status: Chronic (7) Bipolar disorder Current Visit: Yes Status: Chronic Qualifiers: Active/Remission status: currently active Current bipolar episode type: depressed Current episode severity: mild Qualified Code(s): F31.31 - Bipolar disorder, current episode depressed, mild Comment: According to records + self-report. Non adherent to OPD care for months. (8) Non-compliance Current Visit: Yes Status: Chronic - Initial Treatment Plan Initial Treatment Plan: Psychoeducation. Sleep hygiene. Detoxification. [employer] contacted [facility] at [phone] : no psychotropic medications on file ( only medical formulations). Patient declares to this designer/writer that he has been totaly non-compliant. " I did not go to the pharmacy to product picker my refills ". Resumed : celexa 10 mg po daily + abilify 5 mg po daily (reduced) + neurontin 300 mg po tid. Side effects/benefits of these drugs are discussed with the patient. Mr Abdul is in agreement with this plan of care. Gave verbal consent to MD. Will follow EKG. Observation.
--- NOTE | 2019-01-07 14:00 | PN ---
S CIWA - CIWA Score Nausea/Vomitin Muscle Tremors: 2 Anxiety: 2 Agitation: 2 Paroxysmal Sweats: No Perspiration Orientation: 0-Oriented Tacttile Disturbances: 1-Very Mild Itch/Numbness Auditory Disturbances: 0-None Visual Disturbances: 0-None Headache: 2-Mild CIWA-Ar Total Score: 11 S Progress Note (SOAP) Subjective: alert,irritable,anxious,interrupted sleep,receiving second dose of bicillin 2.4 million unit yesterday ,for posive rpr, blood test drawn today,pending Objective: 01/07/19 13:58 Vital Signs Temperature 98.2 F 01/07/19 13:05 Pulse Rate 77 01/07/19 13:05 Respiratory Rate 18 01/07/19 13:05 Blood Pressure 125/79 01/07/19 13:05 O2 Sat by Pulse Oximetry (%) labs pending Assessment: 01/07/19 13:59 withdrawal symptom Plan: continue detox,librium regimen
[2019-01-07 14:47] LABS: BASO % 0.5 % (0-2.0); EOS % 1.5 % (0-4.5); HEMATOCRIT 37.1 % (35.4-49); HEMOGLOBIN 12.7 GM/dL (11.7-16.9); LYMPH % 42.7 % (8-40); MCH 30.5 pg (25.7-33.7); MCHC 34.1 g/dl (32.0-35.9); MEAN CELL VOLUME 89.4 fl (80-96); MEAN PLT VOLUME 7.8 fl (7.5-11.1); MONO % 4.4 % (3.8-10.2); NEUT % 50.9 % (42.8-82.8); PLATELET COUNT 341 K/MM3 (134-434); RBC 4.15 M/mm3 (4.00-5.60); RDW 16.1 % (11.9-15.9); WHITE BLOOD COUNT 6.4 K/mm3 (4.0-10.0)
[2019-01-07 14:50] LABS: ALBUMIN 3.1 g/dl (3.4-5.0); BILIRUBIN,TOTAL 0.4 mg/dL (0.2-1); BLOOD UREA NITROGEN 12.8 mg/dL (7-18); CALCIUM 8.5 mg/dL (8.5-10.1); CREATININE 0.8 mg/dL (0.55-1.3); POTASSIUM 3.7 mmol/L (3.5-5.1); TOT PROT 6.6 g/dl (6.4-8.2)
[2019-01-07 15:21] LABS: PH,URINE 6.5 (5.0-8.0); URINE APPEARANCE CLEAR; URINE BILIRUBIN NEGATIVE (NEGATIVE); URINE COLOR YELLOW; URINE GLUCOSE (UA) NEGATIVE (NEGATIVE); URINE KETONE NEGATIVE (NEGATIVE); URINE LEUK ESTERASE NEGATIVE (NEGATIVE); URINE NITRITE NEGATIVE (NEGATIVE); URINE PROTEIN NEGATIVE (NEGATIVE); URINE UROBILINOGEN 0.2 mg/dL (0.2-1.0)
[2019-01-07] MEDS: GABAPENTIN 300 MG CAPSULE (FP) PO SCH ×2 (15:55→22:18)
[2019-01-07] MEDS: chlordiazePOXIDE HCL 25 MG CAPSULE PO PRN (18:49)
[2019-01-07] MEDS: METHOCARBAMOL 500 MG TABLET PO PRN (18:49)
[2019-01-07] MEDS: THIAMINE HCL 100 MG TABLET (FP) PO SCH (22:18)
[2019-01-07] MEDS: ARIPiprazole 5 MG TABLET (FP) PO SCH (22:18)
[2019-01-08] MEDS: IBUPROFEN 400 MG TABLET (FP) PO PRN (05:16)
[2019-01-08] MEDS: GABAPENTIN 300 MG CAPSULE (FP) PO SCH ×3 (05:16→22:05)
[2019-01-08] MEDS: chlordiazePOXIDE HCL 25 MG CAPSULE PO SCH ×4 (05:16→22:06)
[2019-01-08 08:56] LABS: RPR REACTIVE 1:8 (NONREACTIVE)
[2019-01-08] MEDS: PRENATAL VITAMINS W/ FOLIC ACID TABLET (FP) PO SCH (10:20)
[2019-01-08] MEDS: SULFAMETHOXAZOLE/TRIMETHOPRIM 800MG/160MG D.S. TABLET PO SCH ×2 (10:20→22:05)
[2019-01-08 11:09] LABS: TREPONEMA ANTIBODY REACTIVE (NONREACTIVE)
[2019-01-08] MEDS: CITALOPRAM HYDROBROMIDE 10 MG TABLET (FP) PO SCH (11:22)
--- NOTE | 2019-01-08 15:19 | EKG ---
Test Reason : Blood Pressure : / mmHG Vent. Rate : 071 BPM Atrial Rate : 071 BPM P-R Int : 340 ms QRS Dur : 090 ms QT Int : 390 ms P-R-T Axes : 050 041 025 degrees QTc Int : 423 ms SINUS RHYTHM WITH SINUS ARRHYTHMIA WITH 1ST DEGREE A-V BLOCK OTHERWISE NORMAL ECG WHEN COMPARED WITH ECG OF 21-JAN-2018 18:05, DE INTERVAL HAS INCREASED Confirmed by MD LYNNETTE, EFREN ([id number]) on 01/08/2019 3:19:30 PM Referred By: Confirmed By:EFREN CHURCH MD
--- NOTE | 2019-01-08 15:26 | PN ---
S CIWA - CIWA Score Nausea/Vomitin (Stomach Cramping.) Muscle Tremors: 2 Anxiety: 3 Agitation: 2 Paroxysmal Sweats: No Perspiration Orientation: 2-Disoriented Date<2 days Tacttile Disturbances: 0-None Auditory Disturbances: 0-None Visual Disturbances: 0-None Headache: 0-None Present CIWA-Ar Total Score: 11 S Progress Note (SOAP) Subjective: Anxious (Reduced since yesterday), Interrupted sleep, Tremors, Stomach Cramping. Patient appears significantly calmer and receptive to discussion with TUB ATTENDANT than he did yesterday. Objective: PATIENT A & O X 2 (UNCERTAIN ABOUT CURRENT DAY / DATE). PATIENT OBSERVED AMBULATING ON DETOX UNIT UNASSISTED. IN NO ACUTE DISTRESS. 01/08/19 15:28 Vital Signs Temperature 96.8 F L 01/08/19 13:19 Pulse Rate 72 01/08/19 13:19 Respiratory Rate 17 01/08/19 13:19 Blood Pressure 119/76 01/08/19 13:19 O2 Sat by Pulse Oximetry (%) Laboratory Tests 01/07/19 01/07/19 01/07/19 10:13 12:30 13:30 WBC 6.4 RBC 4.15 Hgb 12.7 Hct 37.1 MCV 89.4 MCH 30.5 MCHC 34.1 RDW 16.1 H Plt Count 341 D MPV 7.8 Absolute Neuts (auto) 3.3 Neutrophils % 50.9 Neutrophils % (Manual) 41.9 L Band Neutrophils % 0.0 Lymphocytes % 42.7 H D Lymphocytes % (Manual) 50.6 H Monocytes % 4.4 Monocytes % (Manual) 8 Eosinophils % 1.5 Eosinophils % (Manual) 0.0 Basophils % 0.5 Basophils % (Manual) 0.0 Myelocytes % (Man) 0 Promyelocytes % (Man) 0 Blast Cells % (Manual) 0 Nucleated RBC % 0 Metamyelocytes 0 Sodium 139 Potassium 3.7 Chloride 105 Carbon Dioxide 25 Anion Gap 8 BUN 12.8 Creatinine 0.8 Est GFR (CKD-EPI)AfAm 125.04 Est GFR (CKD-EPI)NonAf 107.88 Random Glucose 109 H Calcium 8.5 Total Bilirubin 0.4 AST 23 ALT 33 Alkaline Phosphatase 61 Total Protein 6.6 Albumin 3.1 L Urine Color Yellow Urine Appearance Clear Urine pH 6.5 Ur Specific [place] 1.027 Urine Protein Negative Urine Glucose (UA) Negative Urine Ketones Negative Urine Blood Negative Urine Nitrite Negative Urine Bilirubin Negative Urine Urobilinogen 0.2 Ur Leukocyte Esterase Negative RPR Titer T.pallidum Ab (A) 01/07/19 13:30 WBC RBC Hgb Hct MCV MCH MCHC RDW Plt Count MPV Absolute Neuts (auto) Neutrophils % Neutrophils % (Manual) Band Neutrophils % Lymphocytes % Lymphocytes % (Manual) Monocytes % Monocytes % (Manual) Eosinophils % Eosinophils % (Manual) Basophils % Basophils % (Manual) Myelocytes % (Man) Promyelocytes % (Man) Blast Cells % (Manual) Nucleated RBC % Metamyelocytes Sodium Potassium Chloride Carbon Dioxide Anion Gap BUN Creatinine Est GFR (CKD-EPI)AfAm Est GFR (CKD-EPI)NonAf Random Glucose Calcium Total Bilirubin AST ALT Alkaline Phosphatase Total Protein Albumin Urine Color Urine Appearance Urine pH Ur Specific [place] Urine Protein Urine Glucose (UA) Urine Ketones Urine Blood Urine Nitrite Urine Bilirubin Urine Urobilinogen Ur Leukocyte Esterase RPR Titer Reactive 1:8 H D T.pallidum Ab ([facility]) Reactive LABS NOTED. ADMISSION RPR RESULT NOTED: REACTIVE 1:8 (MHATP: PREVIOUSLY REACTIVE). PATIENT RECEIVED SECOND INSTALLMENT OF BICILLIN TREATMENT FORV SYPHILIS ON 01/06 (FIRST INSTALLMENT WAS ADMINISTERED PRIOR TO THAT AT [facility]). RESULTS OF DETOX ADMISSION QFT /TB TEST PENDING. 01/08/19 15:28 Assessment: 01/08/19 15:31 WITHDRAWAL SYMPTOMS. REACTIVE RPR. Plan: CONTINUE DETOX.
[2019-01-08] MEDS: THIAMINE HCL 100 MG TABLET (FP) PO SCH (22:05)
[2019-01-08] MEDS: ARIPiprazole 5 MG TABLET (FP) PO SCH (22:06)
[2019-01-09] MEDS ORDERED: chlordiazePOXIDE HCL 10 MG CAPSULE PO PRN
[2019-01-09] MEDS: chlordiazePOXIDE HCL 10 MG CAPSULE PO SCH ×4 (05:44→22:22)
[2019-01-09] MEDS: GABAPENTIN 300 MG CAPSULE (FP) PO SCH ×3 (05:44→22:22)
[2019-01-09] MEDS: SULFAMETHOXAZOLE/TRIMETHOPRIM 800MG/160MG D.S. TABLET PO SCH ×2 (10:07→22:22)
[2019-01-09] MEDS: CITALOPRAM HYDROBROMIDE 10 MG TABLET (FP) PO SCH (10:07)
[2019-01-09] MEDS: PRENATAL VITAMINS W/ FOLIC ACID TABLET (FP) PO SCH (10:07)
--- NOTE | 2019-01-09 12:04 | PN ---
[facility] CIWA - CIWA Score Nausea/Vomitin-No Nausea/No Vomiting Muscle Tremors: 2 Anxiety: 2 Agitation: 2 Paroxysmal Sweats: No Perspiration Orientation: 0-Oriented Tacttile Disturbances: 1-Very Mild Itch/Numbness Auditory Disturbances: 0-None Visual Disturbances: 0-None Headache: 0-None Present CIWA-Ar Total Score: 7 S Progress Note (SOAP) Subjective: doing well with librium detox regimen chronic lower lumbar pain lidocaine patch to the back reporting newly diagnosed syphilis had penicilline IM x 2 within one month encourage to have 3rd shoot within [address] Thursday feeling better requests to be discharged tomorrow that he is able to prepare himself for court Objective: 01/09/19 12:07 Vital Signs Temperature 97.5 F L 01/09/19 09:11 Pulse Rate 84 01/09/19 09:11 Respiratory Rate 18 01/09/19 09:11 Blood Pressure 113/67 01/09/19 09:11 O2 Sat by Pulse Oximetry (%) Laboratory Last Values WBC 6.4 K/mm3 (4.0-10.0) 01/07/19 13:30 RBC 4.15 M/mm3 (4.00-5.60) 01/07/19 13:30 Hgb 12.7 GM/dL (11.7-16.9) 01/07/19 13:30 Hct 37.1 % (35.4-49) 01/07/19 13:30 MCV 89.4 fl (80-96) 01/07/19 13:30 MCH 30.5 pg (25.7-33.7) 01/07/19 13:30 MCHC 34.1 g/dl (32.0-35.9) 01/07/19 13:30 RDW 16.1 % (11.9-15.9) H 01/07/19 13:30 Plt Count 341 K/MM3 (134-434) D 01/07/19 13:30 MPV 7.8 fl (7.5-11.1) 01/07/19 13:30 Absolute Neuts (auto) 3.3 K/mm3 (1.5-8.0) 01/07/19 13:30 Neutrophils % 50.9 % (42.8-82.8) 01/07/19 13:30 Neutrophils % (Manual) 41.9 % (42.8-82.8) L 01/07/19 13:30 Band Neutrophils % 0.0 % 01/07/19 13:30 Lymphocytes % 42.7 % (8-40) H D 01/07/19 13:30 Lymphocytes % (Manual) 50.6 % (8-40) H 01/07/19 13:30 Monocytes % 4.4 % (3.8-10.2) 01/07/19 13:30 Monocytes % (Manual) 8 % (3.8-10.2) 01/07/19 13:30 Eosinophils % 1.5 % (0-4.5) 01/07/19 13:30 Eosinophils % (Manual) 0.0 % (0-4.5) 01/07/19 13:30 Basophils % 0.5 % (0-2.0) 01/07/19 13:30 Basophils % (Manual) 0.0 % (0-2.0) 01/07/19 13:30 Myelocytes % (Man) 0 % (0-2) 01/07/19 13:30 Promyelocytes % (Man) 0 % (0-2) 01/07/19 13:30 Blast Cells % (Manual) 0 % (0-0) 01/07/19 13:30 Nucleated RBC % 0 % (0-0) 01/07/19 13:30 Metamyelocytes 0 % (0-2) 01/07/19 13:30 Sodium 139 mmol/L (136-145) 01/07/19 10:13 Potassium 3.7 mmol/L (3.5-5.1) 01/07/19 10:13 Chloride 105 mmol/L (98-107) 01/07/19 10:13 Carbon Dioxide 25 mmol/L (21-32) 01/07/19 10:13 Anion Gap 8 MMOL/L (8-16) 01/07/19 10:13 BUN 12.8 mg/dL (7-18) 01/07/19 10:13 Creatinine 0.8 mg/dL (0.55-1.3) 01/07/19 10:13 Est GFR (CKD-EPI)AfAm 125.04 01/07/19 10:13 Est GFR (CKD-EPI)NonAf 107.88 01/07/19 10:13 Random Glucose 109 mg/dL (74-106) H 01/07/19 10:13 Calcium 8.5 mg/dL (8.5-10.1) 01/07/19 10:13 Total Bilirubin 0.4 mg/dL (0.2-1) 01/07/19 10:13 AST 23 U/L (15-37) 01/07/19 10:13 ALT 33 U/L (13-61) 01/07/19 10:13 Alkaline Phosphatase 61 U/L (45-117) 01/07/19 10:13 Total Protein 6.6 g/dl (6.4-8.2) 01/07/19 10:13 Albumin 3.1 g/dl (3.4-5.0) L 01/07/19 10:13 Urine Color Yellow 01/07/19 12:30 Urine Appearance Clear 01/07/19 12:30 Urine pH 6.5 (5.0-8.0) 01/07/19 12:30 Ur Specific [place] 1.027 (1.010-1.035) 01/07/19 12:30 Urine Protein Negative (NEGATIVE) 01/07/19 12:30 Urine Glucose (UA) Negative (NEGATIVE) 01/07/19 12:30 Urine Ketones Negative (NEGATIVE) 01/07/19 12:30 Urine Blood Negative (NEGATIVE) 01/07/19 12:30 Urine Nitrite Negative (NEGATIVE) 01/07/19 12:30 Urine Bilirubin Negative (NEGATIVE) 01/07/19 12:30 Urine Urobilinogen 0.2 mg/dL (0.2-1.0) 01/07/19 12:30 Ur Leukocyte Esterase Negative (NEGATIVE) 01/07/19 12:30 RPR Titer Reactive 1:8 (NONREACTIVE) H D 01/07/19 13:30 T.pallidum Ab ([facility]) Reactive (NONREACTIVE) 01/07/19 13:30 lab noted patient received one dose of penicilline IM during the detox stay 01/06/19 01/09/19 12:10 Assessment: 01/09/19 12:11 benzo withdrawal sx Plan: continue librium detox
[2019-01-09] MEDS ORDERED: LIDOCAINE 5% TOPICAL PATCH TP SCH (12:15)
[2019-01-09 21:18] VITALS: BP 121/76; PULSE 86; TEMP 97.6
[2019-01-09] MEDS ORDERED: LIDOCAINE PATCH REMOVAL MC SCH (22:00)
[2019-01-09] MEDS: THIAMINE HCL 100 MG TABLET (FP) PO SCH (22:21)
[2019-01-09] MEDS: MELATONIN 5 MG TABLETS PO PRN (22:21)
[2019-01-09] MEDS: ARIPiprazole 5 MG TABLET (FP) PO SCH (22:24)
--- NOTE | 2019-01-10 01:55 | DS ---
[facility] Detox Discharge Summary Admission Date: 01/06/19 Discharge Date: 01/10/19 - History Additional Comments: As per nurse, Marco Ochoa, patient was being disruptive on the floor. He argued with security who told he to go to his room. Patient became agitated and stated that he wants to leave. He signed the AMA form and left. Patient did not wait for the optical instruments supervisor to come. Pertinent Past History: DM type 2, hypertension, asthma, GERD, cocaine dependence, nicotine dependence, anxiety and depression - Physical Exam Results Vital Signs: Vital Signs Temperature 97.6 F 01/09/19 21:17 Pulse Rate 86 01/09/19 21:17 Respiratory Rate 18 01/09/19 21:17 Blood Pressure 121/76 01/09/19 21:17 O2 Sat by Pulse Oximetry (%) Laboratory Last Values WBC 6.4 K/mm3 (4.0-10.0) 01/07/19 13:30 RBC 4.15 M/mm3 (4.00-5.60) 01/07/19 13:30 Hgb 12.7 GM/dL (11.7-16.9) 01/07/19 13:30 Hct 37.1 % (35.4-49) 01/07/19 13:30 MCV 89.4 fl (80-96) 01/07/19 13:30 MCH 30.5 pg (25.7-33.7) 01/07/19 13:30 MCHC 34.1 g/dl (32.0-35.9) 01/07/19 13:30 RDW 16.1 % (11.9-15.9) H 01/07/19 13:30 Plt Count 341 K/MM3 (134-434) D 01/07/19 13:30 MPV 7.8 fl (7.5-11.1) 01/07/19 13:30 Absolute Neuts (auto) 3.3 K/mm3 (1.5-8.0) 01/07/19 13:30 Neutrophils % 50.9 % (42.8-82.8) 01/07/19 13:30 Neutrophils % (Manual) 41.9 % (42.8-82.8) L 01/07/19 13:30 Band Neutrophils % 0.0 % 01/07/19 13:30 Lymphocytes % 42.7 % (8-40) H D 01/07/19 13:30 Lymphocytes % (Manual) 50.6 % (8-40) H 01/07/19 13:30 Monocytes % 4.4 % (3.8-10.2) 01/07/19 13:30 Monocytes % (Manual) 8 % (3.8-10.2) 01/07/19 13:30 Eosinophils % 1.5 % (0-4.5) 01/07/19 13:30 Eosinophils % (Manual) 0.0 % (0-4.5) 01/07/19 13:30 Basophils % 0.5 % (0-2.0) 01/07/19 13:30 Basophils % (Manual) 0.0 % (0-2.0) 01/07/19 13:30 Myelocytes % (Man) 0 % (0-2) 01/07/19 13:30 Promyelocytes % (Man) 0 % (0-2) 01/07/19 13:30 Blast Cells % (Manual) 0 % (0-0) 01/07/19 13:30 Nucleated RBC % 0 % (0-0) 01/07/19 13:30 Metamyelocytes 0 % (0-2) 01/07/19 13:30 Sodium 139 mmol/L (136-145) 01/07/19 10:13 Potassium 3.7 mmol/L (3.5-5.1) 01/07/19 10:13 Chloride 105 mmol/L (98-107) 01/07/19 10:13 Carbon Dioxide 25 mmol/L (21-32) 01/07/19 10:13 Anion Gap 8 MMOL/L (8-16) 01/07/19 10:13 BUN 12.8 mg/dL (7-18) 01/07/19 10:13 Creatinine 0.8 mg/dL (0.55-1.3) 01/07/19 10:13 Est GFR (CKD-EPI)AfAm 125.04 01/07/19 10:13 Est GFR (CKD-EPI)NonAf 107.88 01/07/19 10:13 Random Glucose 109 mg/dL (74-106) H 01/07/19 10:13 Calcium 8.5 mg/dL (8.5-10.1) 01/07/19 10:13 Total Bilirubin 0.4 mg/dL (0.2-1) 01/07/19 10:13 AST 23 U/L (15-37) 01/07/19 10:13 ALT 33 U/L (13-61) 01/07/19 10:13 Alkaline Phosphatase 61 U/L (45-117) 01/07/19 10:13 Total Protein 6.6 g/dl (6.4-8.2) 01/07/19 10:13 Albumin 3.1 g/dl (3.4-5.0) L 01/07/19 10:13 Urine Color Yellow 01/07/19 12:30 Urine Appearance Clear 01/07/19 12:30 Urine pH 6.5 (5.0-8.0) 01/07/19 12:30 Ur Specific [place] 1.027 (1.010-1.035) 01/07/19 12:30 Urine Protein Negative (NEGATIVE) 01/07/19 12:30 Urine Glucose (UA) Negative (NEGATIVE) 01/07/19 12:30 Urine Ketones Negative (NEGATIVE) 01/07/19 12:30 Urine Blood Negative (NEGATIVE) 01/07/19 12:30 Urine Nitrite Negative (NEGATIVE) 01/07/19 12:30 Urine Bilirubin Negative (NEGATIVE) 01/07/19 12:30 Urine Urobilinogen 0.2 mg/dL (0.2-1.0) 01/07/19 12:30 Ur Leukocyte Esterase Negative (NEGATIVE) 01/07/19 12:30 RPR Titer Reactive 1:8 (NONREACTIVE) H D 01/07/19 13:30 T.pallidum Ab (MHA) Reactive (NONREACTIVE) 01/07/19 13:30 TB (QFT) Incubation (.) 01/07/19 13:30 TB Test (QFT) Nil 0.04 IU/mL (.) 01/07/19 13:30 TB Test (QFT) Mitogen >10.00 IU/mL (.) 01/07/19 13:30 TB Test (QFT) Antigen 0.03 IU/mL (.) 01/07/19 13:30 TB Test (QFT) Negative (Negative) 01/07/19 13:30 TB Positive Criteria (.) 01/07/19 13:30 Pertinent Admission Physical Exam Findings: Alcohol withdrawal symptoms - Medication Discharge Medications: Ambulatory Orders Aripiprazole [Abilify -] 30 mg PO DAILY 01/21/18 Gabapentin [Neurontin -] 300 mg PO TID #60 capsule 08/02/18 Citalopram Hydrobromide [Celexa -] 10 mg PO DAILY 09/15/18 Albuterol Sulfate Inhaler - [Ventolin HFA Inhaler -] 2 puff IH Q4H PRN #1 inhaler 01/09/19 Amlodipine Besylate [Norvasc -] 10 mg PO DAILY #30 tablet 01/09/19 Sulfamethoxazole/Trimethoprim [Bactrim DS -] 1 each PO BID #1 tablet 01/09/19 - Diagnosis (1) Alcohol dependence with withdrawal, uncomplicated Status: Chronic (2) Frequent falls Status: Chronic (3) Manic disorder, single episode, severe, with psychotic behavior Status: Chronic (4) Anxiety disorder Status: Chronic (5) Asthma Status: Chronic (6) Cocaine dependence Status: Chronic Qualifiers: Substance use status: uncomplicated Qualified Code(s): F14.20 - Cocaine dependence, uncomplicated (7) DEPRESSION Status: Chronic (8) DM2 (diabetes mellitus, type 2) Status: Chronic Qualifiers: Diabetes mellitus care home insulin use: unspecified care home insulin use status Diabetes mellitus complication status: with unspecified complications (9) Drug-induced mood disorder Status: Chronic (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
[2019-01-10] MEDS ORDERED: chlordiazePOXIDE HCL 10 MG CAPSULE PO SCH (05:00)
[2019-01-11] MEDS ORDERED: chlordiazePOXIDE HCL 10 MG CAPSULE PO ONE (05:00)
== END 2019-01-10 00:17 | disposition left against medical advice (07) | DRG 770 ==
LOC: YASAS 12:07 → Y3N 17:36
PROVIDERS: ADMIT Surgery; ATTEND Surgery
PROC: HZ2ZZZZ Detoxification Services for Substance Abuse Treatment (ICD-10-PCS; principal; 2019-01-06)
DX: F10.230 Alcohol dependence with withdrawal, uncomplicated (principal); F11.20 Opioid dependence, uncomplicated; F13.230 Sedative, hypnotic or anxiolytic dependence with withdrawal, uncomplicated; F14.20 Cocaine dependence, uncomplicated; F15.10 Other stimulant abuse, uncomplicated; F17.210 Nicotine dependence, cigarettes, uncomplicated; F31.31 Bipolar disorder, current episode depressed, mild; F30.2 Manic episode, severe with psychotic symptoms; F41.8 Other specified anxiety disorders; F32.9 Major depressive disorder, single episode, unspecified; A53.0 Latent syphilis, unspecified as early or late; I10 Essential (primary) hypertension; J44.9 Chronic obstructive pulmonary disease, unspecified; K21.9 Gastro-esophageal reflux disease without esophagitis; E11.9 Type 2 diabetes mellitus without complications; Z79.4 Long term (current) use of insulin; R29.6 Repeated falls; G40.909 Epilepsy, unspecified, not intractable, without status epilepticus; Z86.74 Personal history of sudden cardiac arrest
CPT/HCPCS: 36415; 80053; 81003; 85025; 86480; 86593; 86780; 93005; 93010

== ENCOUNTER 2022-08-12 12:57 | Inpatient (IN) | payer OTHER ==
[2022-08-12 13:16] VITALS: BMI 22.8
[2022-08-12] MEDS ORDERED: NICOTINE 10 MG CARTRIDGE (INHALER) IH PRN (16:52)
[2022-08-12] MEDS ORDERED: BENZOCAINE/MENTHOL (CHLORASEPTIC ) LOZENGE MM PRN (16:52)
[2022-08-12] MEDS ORDERED: LOPERAMIDE HCL 2 MG CAPSULE PO PRN (16:52)
[2022-08-12] MEDS ORDERED: diazePAM 5 MG TABLET PO PRN (16:52)
[2022-08-12] MEDS ORDERED: hydrOXYzine PAMOATE 25 MG CAPSULE (FP) PO PRN (16:52)
[2022-08-12] MEDS ORDERED: IBUPROFEN 400 MG TABLET (FP) PO PRN (16:52)
[2022-08-12] MEDS ORDERED: DICYCLOMINE HCL 10 MG CAPSULE PO PRN (16:52)
[2022-08-12] MEDS ORDERED: guaiFENesin 600 MG TABLET.ER (FP) PO PRN (16:52)
[2022-08-12] MEDS ORDERED: MAGNESIUM HYDROX 2400MG/30ML ORAL SUSPENSION 30 ML CUP PO PRN (16:52)
[2022-08-12] MEDS ORDERED: ONDANSETRON *ODT* 4 MG TABLET SL PRN (16:52)
[2022-08-12] MEDS ORDERED: BENZONATATE 200 MG CAPSULE PO PRN (16:52)
[2022-08-12] MEDS ORDERED: BISMUTH SUBSALICYLATE 524 MG/30 ML PO PRN (16:52)
[2022-08-12] MEDS ORDERED: ACETAMINOPHEN 325 MG TABLET (FP) PO PRN (16:52)
[2022-08-12] MEDS ORDERED: NALOXONE HCL (KLOXXADO) 8 MG SPRAY NS PRN (16:52)
[2022-08-12] MEDS ORDERED: NALOXONE HCL 0.4 MG/ML VIAL IM PRN (16:52)
[2022-08-12] MEDS ORDERED: MAG HYDROX/AL HYDROX/SIMETH 30 ML UNIT-DOSE CUP PO PRN (16:52)
[2022-08-12] MEDS ORDERED: POLYETHYLENE GLYCOL (HEALTHYLAX) 3350 17 GM PACKET PO PRN (16:52)
[2022-08-12] MEDS ORDERED: ALBUTEROL SO4 HFA INHALER IH PRN (16:55)
[2022-08-12] MEDS ORDERED: MINERAL OIL/PET HY-PHL TOPICAL OINTMENT 454 GM JAR TP SCH (22:00)
[2022-08-12] MEDS: THIAMINE HCL 100 MG TABLET (FP) PO SCH (22:55)
[2022-08-12] MEDS: diazePAM 5 MG TABLET PO SCH (22:55)
[2022-08-12] MEDS: MELATONIN 5 MG TABLETS PO SCH (22:55)
[2022-08-12] MEDS: METHOCARBAMOL 500 MG TABLET PO PRN (22:56)
[2022-08-13] MEDS: IBUPROFEN 600 MG TABLET (FP) PO PRN ×2 (01:36→20:50)
[2022-08-13] MEDS: diazePAM 5 MG TABLET PO SCH ×4 (05:52→23:45)
[2022-08-13 11:16] LABS: HEMATOCRIT 41.7 % (35.4-49); HEMOGLOBIN 14.5 GM/dL (11.7-16.9); MCH 30.9 pg (25.7-33.7); MCHC 34.7 g/dl (32.0-35.9); PLATELET COUNT 260 10^3/uL (134-434); RBC 4.69 M/mm3 (4.00-5.60); RDW 13.7 % (11.9-15.9); WHITE BLOOD COUNT 5.9 K/mm3 (4.0-10.0)
[2022-08-13] MEDS: amLODIPine BESYLATE 10 MG TABLET (FP) PO SCH (11:44)
[2022-08-13] MEDS: PRENATAL VITAMINS W/ FOLIC ACID TABLET (FP) PO SCH (11:44)
[2022-08-13 11:45] LABS: BLOOD UREA NITROGEN 18.6 mg/dL (7-18); CALCIUM 8.8 mg/dL (8.5-10.1)
[2022-08-13] MEDS: MINERAL OIL/PET HY-PHL TOPICAL OINTMENT 454 GM JAR TP SCH ×3 (11:46→23:44)
[2022-08-13 11:48] LABS: CREATININE 0.7 mg/dL (0.55-1.3)
[2022-08-13 11:50] LABS: TOT PROT 6.3 g/dl (6.4-8.2)
[2022-08-13 11:51] LABS: BILIRUBIN,TOTAL 0.3 mg/dL (0.2-1)
[2022-08-13] MEDS: LIDOCAINE 5% TOPICAL PATCH TP SCH (15:05)
[2022-08-13] MEDS: LIDOCAINE PATCH REMOVAL MC SCH (23:44)
[2022-08-13] MEDS: THIAMINE HCL 100 MG TABLET (FP) PO SCH (23:45)
[2022-08-13] MEDS: MELATONIN 5 MG TABLETS PO SCH (23:45)
[2022-08-14] MEDS: diazePAM 5 MG TABLET PO SCH ×3 (06:18→22:24)
[2022-08-14] MEDS: amLODIPine BESYLATE 10 MG TABLET (FP) PO SCH (10:58)
[2022-08-14] MEDS: MINERAL OIL/PET HY-PHL TOPICAL OINTMENT 454 GM JAR TP SCH ×2 (10:58→22:24)
[2022-08-14] MEDS: PRENATAL VITAMINS W/ FOLIC ACID TABLET (FP) PO SCH (10:58)
[2022-08-14] MEDS: LIDOCAINE 5% TOPICAL PATCH TP SCH (11:00)
[2022-08-14] MEDS: MELATONIN 5 MG TABLETS PO SCH (22:24)
[2022-08-14] MEDS: THIAMINE HCL 100 MG TABLET (FP) PO SCH (22:24)
[2022-08-14] MEDS: LIDOCAINE PATCH REMOVAL MC SCH (22:25)
[2022-08-14] MEDS: METHOCARBAMOL 500 MG TABLET PO PRN (22:28)
[2022-08-15] MEDS ORDERED: diazePAM 5 MG TABLET PO SCH (06:00)
[2022-08-15] MEDS: amLODIPine BESYLATE 10 MG TABLET (FP) PO SCH (10:39)
[2022-08-15] MEDS: PRENATAL VITAMINS W/ FOLIC ACID TABLET (FP) PO SCH (10:39)
[2022-08-15] MEDS: LIDOCAINE 5% TOPICAL PATCH TP SCH (10:39)
[2022-08-15] MEDS: MINERAL OIL/PET HY-PHL TOPICAL OINTMENT 454 GM JAR TP SCH (10:40)
[2022-08-15] MEDS: METHOCARBAMOL 500 MG TABLET PO PRN (10:41)
[2022-08-15] MEDS: IBUPROFEN 600 MG TABLET (FP) PO PRN (10:41)
[2022-08-15 18:38] VITALS: BP 133/72; PULSE 103; RESP 17; TEMP 98
[2022-08-16] MEDS ORDERED: diazePAM 5 MG TABLET PO ONE (06:00)
== END 2022-08-15 17:20 | disposition left against medical advice (07) | DRG 770 ==
LOC: YASAS 12:57 → Y6N 16:52
PROVIDERS: ADMIT Allergy & Immunology; ATTEND Surgery
PROC: HZ2ZZZZ Detoxification Services for Substance Abuse Treatment (ICD-10-PCS; principal; 2022-08-12)
DX: F11.23 Opioid dependence with withdrawal (principal); F10.230 Alcohol dependence with withdrawal, uncomplicated; F14.20 Cocaine dependence, uncomplicated; F31.9 Bipolar disorder, unspecified; F41.8 Other specified anxiety disorders; F17.210 Nicotine dependence, cigarettes, uncomplicated; I10 Essential (primary) hypertension; I25.2 Old myocardial infarction; J45.909 Unspecified asthma, uncomplicated; M54.50 Low back pain, unspecified; G89.29 Other chronic pain; Z62.810 Personal history of physical and sexual abuse in childhood; R63.4 Abnormal weight loss; Z68.22 Body mass index [BMI] 22.0-22.9, adult
CPT/HCPCS: 36415; 72100-TC-FY; 80053; 84520; 85027; 86593; 86780; 87811; C9803-CS; U0003; U0005

== ENCOUNTER 2023-06-14 13:38 | Inpatient (IN) | payer OTHER ==
[2023-06-14 14:04] VITALS: BMI 21.4
[2023-06-14] MEDS ORDERED: IBUPROFEN 600 MG TABLET (FP) PO PRN (15:33)
[2023-06-14] MEDS ORDERED: ACETAMINOPHEN 325 MG TABLET (FP) PO PRN (15:33)
[2023-06-14] MEDS ORDERED: guaiFENesin 600 MG TABLET.ER (FP) PO PRN (15:33)
[2023-06-14] MEDS ORDERED: BENZOCAINE/MENTHOL (CHLORASEPTIC ) LOZENGE MM PRN (15:33)
[2023-06-14] MEDS ORDERED: NALOXONE HCL 0.4 MG/ML VIAL IM PRN (15:33)
[2023-06-14] MEDS ORDERED: NALOXONE HCL (KLOXXADO) 8 MG SPRAY NS PRN (15:33)
[2023-06-14] MEDS ORDERED: POLYETHYLENE GLYCOL (HEALTHYLAX) 3350 17 GM PACKET PO PRN (15:33)
[2023-06-14] MEDS ORDERED: IBUPROFEN 400 MG TABLET (FP) PO PRN (15:33)
[2023-06-14] MEDS ORDERED: NICOTINE POLACRILEX 2 MG GUM BUC PRN (15:33)
[2023-06-14] MEDS ORDERED: BENZONATATE 200 MG CAPSULE PO PRN (15:33)
[2023-06-14] MEDS ORDERED: BISMUTH SUBSALICYLATE 524 MG/30 ML PO PRN (15:33)
[2023-06-14] MEDS ORDERED: MAGNESIUM HYDROX 2400MG/30ML ORAL SUSPENSION 30 ML CUP PO PRN (15:33)
[2023-06-14] MEDS ORDERED: MAG HYDROX/AL HYDROX/SIMETH 30 ML UNIT-DOSE CUP PO PRN (15:33)
[2023-06-14] MEDS ORDERED: ONDANSETRON *ODT* 4 MG TABLET SL PRN (15:33)
[2023-06-14] MEDS ORDERED: LOPERAMIDE HCL 2 MG CAPSULE PO PRN (15:33)
[2023-06-14] MEDS ORDERED: chlordiazePOXIDE HCL 25 MG CAPSULE PO PRN (15:33)
[2023-06-14] MEDS ORDERED: DICYCLOMINE HCL 10 MG CAPSULE PO PRN (15:33)
[2023-06-14] MEDS: chlordiazePOXIDE HCL 25 MG CAPSULE PO SCH (18:14)
[2023-06-14] MEDS ORDERED: chlordiazePOXIDE HCL 25 MG CAPSULE ONE (18:17)
[2023-06-14] MEDS: MELATONIN 5 MG TABLETS PO SCH (22:44)
[2023-06-14] MEDS: METHOCARBAMOL 500 MG TABLET PO PRN (22:44)
[2023-06-14] MEDS: THIAMINE HCL 100 MG TABLET (FP) PO SCH (22:44)
[2023-06-14] MEDS: hydrOXYzine PAMOATE 25 MG CAPSULE (FP) PO PRN (22:44)
[2023-06-15] MEDS ORDERED: ALBUTEROL SO4 HFA INHALER IH PRN (07:36)
[2023-06-15] MEDS: ARIPiprazole 10 MG TABLET PO SCH (10:10)
[2023-06-15] MEDS: amLODIPine BESYLATE 10 MG TABLET (FP) PO SCH (10:11)
[2023-06-15] MEDS: PRENATAL VITAMINS W/ FOLIC ACID TABLET (FP) PO SCH (10:11)
[2023-06-15] MEDS: NICOTINE 14 MG/24 HOURS TOPICAL PATCH TD SCH (10:11)
[2023-06-15 10:41] LABS: HEMATOCRIT 42.1 % (35.4-49); HEMOGLOBIN 14.4 GM/dL (11.7-16.9); MCH 31.2 pg (25.7-33.7); MCHC 34.1 g/dl (32.0-35.9); MEAN CELL VOLUME 91.5 fl (80-96); MEAN PLT VOLUME 8.2 fl (7.5-11.1); PLATELET COUNT 295 10^3/uL (134-434); RBC 4.61 M/mm3 (4.00-5.60); RDW 14.5 % (11.9-15.9); WHITE BLOOD COUNT 6.2 K/mm3 (4.0-10.0)
[2023-06-15 10:47] LABS: CHLORIDE 112 mmol/L (98-107); POTASSIUM 3.9 mmol/L (3.5-5.1); SODIUM 141 mmol/L (136-145)
[2023-06-15 10:49] LABS: CALCIUM 8.4 mg/dL (8.5-10.1)
[2023-06-15 10:50] LABS: ALBUMIN 3.1 g/dl (3.4-5.0); ANION GAP 7 mmol/L (4-13); BLOOD UREA NITROGEN 23.1 mg/dL (7-18); CO2 22 mmol/L (21-32); GLUCOSE,RANDOM 174 mg/dL (74-106)
[2023-06-15 10:53] LABS: CREATININE 0.9 mg/dL (0.55-1.3); SGOT/AST 26 U/L (15-37); SGPT/ALT 37 U/L (13-61)
[2023-06-15 10:55] LABS: BILIRUBIN,TOTAL 0.4 mg/dL (0.2-1); TOT PROT 6.5 g/dl (6.4-8.2)
[2023-06-15 10:56] LABS: ALK PHOS 101 U/L (45-117)
[2023-06-15] MEDS: GABAPENTIN 300 MG CAPSULE PO SCH (13:22)
[2023-06-16] MEDS: chlordiazePOXIDE HCL 25 MG CAPSULE PO SCH (05:05)
[2023-06-16] MEDS: LIDOCAINE 5% TOPICAL PATCH TP SCH (11:19)
[2023-06-16] MEDS: LISINOPRIL 5 MG TABLET PO SCH (12:00)
[2023-06-16] MEDS: LIDOCAINE PATCH REMOVAL MC SCH (22:30)
[2023-06-16] MEDS: METHYL SALICYLATE/MENTHOL OINT 30 GM TUBE TP SCH (22:37)
[2023-06-17] MEDS ORDERED: chlordiazePOXIDE HCL 10 MG CAPSULE PO PRN
[2023-06-17] MEDS: chlordiazePOXIDE HCL 10 MG CAPSULE PO SCH (05:33)
[2023-06-17 09:00] VITALS: BP 152/92; PULSE 88; RESP 18; TEMP 98.3
[2023-06-18] MEDS ORDERED: chlordiazePOXIDE HCL 10 MG CAPSULE PO SCH (05:00)
[2023-06-19] MEDS ORDERED: chlordiazePOXIDE HCL 10 MG CAPSULE PO ONE (05:00)
== END 2023-06-17 11:40 | disposition left against medical advice (07) | DRG 770 ==
LOC: YASAS 13:38 → Y6N 17:54
PROVIDERS: ADMIT Allergy & Immunology; ATTEND Allergy & Immunology
PROC: HZ2ZZZZ Detoxification Services for Substance Abuse Treatment (ICD-10-PCS; principal; 2023-06-14)
DX: F10.230 Alcohol dependence with withdrawal, uncomplicated (principal); F11.20 Opioid dependence, uncomplicated; F14.20 Cocaine dependence, uncomplicated; F17.210 Nicotine dependence, cigarettes, uncomplicated; I10 Essential (primary) hypertension; J44.9 Chronic obstructive pulmonary disease, unspecified; K21.9 Gastro-esophageal reflux disease without esophagitis; E11.9 Type 2 diabetes mellitus without complications; M54.50 Low back pain, unspecified; G89.29 Other chronic pain; G40.909 Epilepsy, unspecified, not intractable, without status epilepticus; Z86.74 Personal history of sudden cardiac arrest; Z62.810 Personal history of physical and sexual abuse in childhood; Z63.8 Other specified problems related to primary support group; Z28.310 Unvaccinated for COVID-19; Z28.9 Immunization not carried out for unspecified reason; Z86.19 Personal history of other infectious and parasitic diseases
CPT/HCPCS: 36415; 80053; 80305; 80307; 82962; 85027; 86593; 86780; 87635

== ENCOUNTER 2024-01-27 17:50 | Inpatient (IN) | payer OTHER ==
[2024-01-27 18:42] VITALS: BMI 23.6
[2024-01-27] MEDS ORDERED: NICOTINE POLACRILEX 2 MG LOZENGE BC PRN (18:50)
[2024-01-27] MEDS ORDERED: MAG HYDROX/AL HYDROX/SIMETH 30 ML UNIT-DOSE CUP PO PRN (18:50)
[2024-01-27] MEDS ORDERED: IBUPROFEN 600 MG TABLET (FP) PO PRN (18:50)
[2024-01-27] MEDS ORDERED: DICYCLOMINE HCL 10 MG CAPSULE PO PRN (18:50)
[2024-01-27] MEDS ORDERED: BISMUTH SUBSALICYLATE 524 MG/30 ML PO PRN (18:50)
[2024-01-27] MEDS ORDERED: guaiFENesin 600 MG TABLET.ER (FP) PO PRN (18:50)
[2024-01-27] MEDS ORDERED: BENZONATATE 200 MG CAPSULE PO PRN (18:50)
[2024-01-27] MEDS ORDERED: IBUPROFEN 400 MG TABLET (FP) PO PRN (18:50)
[2024-01-27] MEDS ORDERED: NICOTINE POLACRILEX 2 MG GUM BUC PRN (18:50)
[2024-01-27] MEDS ORDERED: POLYETHYLENE GLYCOL (HEALTHYLAX) 3350 17 GM PACKET PO PRN (18:50)
[2024-01-27] MEDS ORDERED: ACETAMINOPHEN 325 MG TABLET (FP) PO PRN (18:50)
[2024-01-27] MEDS ORDERED: MAGNESIUM HYDROX 2400MG/30ML ORAL SUSPENSION 30 ML CUP PO PRN (18:50)
[2024-01-27] MEDS ORDERED: ONDANSETRON *ODT* 4 MG TABLET SL PRN (18:50)
[2024-01-27] MEDS ORDERED: LOPERAMIDE HCL 2 MG CAPSULE PO PRN (18:50)
[2024-01-27] MEDS: BACITRACIN 0.9 GM PACKET TP PRN (20:36)
[2024-01-27] MEDS: MELATONIN 5 MG TABLETS PO SCH (21:38)
[2024-01-27] MEDS: THIAMINE 100 MG TABLET PO SCH (21:38)
[2024-01-27] MEDS ORDERED: ALBUTEROL SO4 HFA INHALER IH PRN (21:40)
[2024-01-28] MEDS: PRENATAL VITAMINS W/ FOLIC ACID TABLET (FP) PO SCH (09:15)
[2024-01-28] MEDS: amLODIPine BESYLATE 10 MG TABLET (FP) PO SCH (09:15)
[2024-01-28] MEDS ORDERED: diazePAM 5 MG TABLET PO PRN (10:01)
[2024-01-28] MEDS: hydrOXYzine PAMOATE 25 MG CAPSULE (FP) PO PRN (10:29)
[2024-01-28] MEDS: diazePAM 5 MG TABLET PO SCH (10:30)
[2024-01-28] MEDS: METHOCARBAMOL 500 MG TABLET PO PRN (10:30)
[2024-01-28] MEDS: MICONAZOLE NITRATE 28 GM TUBE TP SCH (10:55)
[2024-01-28 15:04] LABS: HEMATOCRIT 44.4 % (35.4-49); HEMOGLOBIN 14.7 GM/dL (11.7-16.9); MCH 31.3 pg (25.7-33.7); MCHC 33.1 g/dl (32.0-35.9); MEAN CELL VOLUME 94.5 fl (80-96); MEAN PLT VOLUME 8.1 fl (7.5-11.1); PLATELET COUNT 374 10^3/uL (134-434)
[2024-01-28 17:09] LABS: CHLORIDE 105 mmol/L (98-107); POTASSIUM 4.8 mmol/L (3.5-5.1); SODIUM 136 mmol/L (136-145)
[2024-01-28 17:14] LABS: CALCIUM 9.4 mg/dL (8.5-10.1)
[2024-01-28 17:15] LABS: ALBUMIN 3.4 g/dl (3.4-5.0); ANION GAP 4 mmol/L (4-13); BLOOD UREA NITROGEN 16.5 mg/dL (7-18); CO2 27 mmol/L (21-32); GLUCOSE,RANDOM 110 mg/dL (74-106)
[2024-01-28 17:17] LABS: SGOT/AST 27 U/L (15-37); SGPT/ALT 41 U/L (13-61)
[2024-01-28 17:18] LABS: CREATININE 0.9 mg/dL (0.55-1.3)
[2024-01-28 17:19] LABS: ALK PHOS 65 U/L (45-117); BILIRUBIN,TOTAL 0.4 mg/dL (0.2-1); TOT PROT 7.4 g/dl (6.4-8.2)
[2024-01-29] MEDS: NALOXONE (NYS OPIOID OVERDOSE PROGRAM) 4 MG/0.1 ML SPRAY NS ONE (13:25)
[2024-01-29] MEDS ORDERED: NALOXONE (NYS OPIOID OVERDOSE PROGRAM) 4 MG/0.1 ML SPRAY NS PRN (14:28)
[2024-01-29 20:34] VITALS: RESP 16
[2024-01-29] MEDS: BENZOCAINE/MENTHOL (CHLORASEPTIC ) LOZENGE MM PRN (22:07)
[2024-01-30] MEDS: diazePAM 5 MG TABLET PO SCH (05:48)
[2024-01-30 06:27] VITALS: BP 118/80; PULSE 60; TEMP 97.8
[2024-01-31] MEDS ORDERED: diazePAM 5 MG TABLET PO SCH (06:00)
[2024-02-01] MEDS ORDERED: diazePAM 5 MG TABLET PO ONE (06:00)
== END 2024-01-30 06:02 | disposition left against medical advice (07) | DRG 770 ==
LOC: YASAS 17:50 → Y3N 20:13
PROVIDERS: ADMIT Allergy & Immunology; ATTEND Surgery
PROC: HZ2ZZZZ Detoxification Services for Substance Abuse Treatment (ICD-10-PCS; principal; 2024-01-27)
DX: F10.230 Alcohol dependence with withdrawal, uncomplicated (principal); F14.20 Cocaine dependence, uncomplicated; F13.20 Sedative, hypnotic or anxiolytic dependence, uncomplicated; F15.20 Other stimulant dependence, uncomplicated; F17.210 Nicotine dependence, cigarettes, uncomplicated; F19.24 Other psychoactive substance dependence with psychoactive substance-induced mood disorder; F31.9 Bipolar disorder, unspecified; F41.9 Anxiety disorder, unspecified; G47.00 Insomnia, unspecified; J44.9 Chronic obstructive pulmonary disease, unspecified; M54.50 Low back pain, unspecified; M89.29 Other disorders of bone development and growth, multiple sites; R76.8 Other specified abnormal immunological findings in serum; Z91.199 Patient's noncompliance with other medical treatment and regimen due to unspecified reason; Z79.899 Other long term (current) drug therapy
CPT/HCPCS: 36415; 71045-TC-FY; 80053; 80305; 80307; 85027; 86593; 86780; 93005; 93010